=== PATIENT | male | born 1960 | race American Indian/Alaskan Native ===

== ENCOUNTER 2017-08-26 23:26 | Emergency (ER) | payer MEDICAID ==
--- NOTE | 2017-08-27 00:11 | EDM.PDOC ---
ED HPI GENERAL MEDICAL PROBLEM - General Chief Complaint: Respiratory Problem Stated Complaint: DIFFICULTY BREATHING [id number] Time Seen by Provider: 08/27/17 00:07 Source of Information: Reports: Patient History Limitations: Reports: No Limitations - History of Present Illness INITIAL COMMENTS - FREE TEXT/NARRATIVE: been having SOB past few days and has appt' with PMD next week but unable to wait till then. some chest discomfort and occasionally sharp. denies F/C - Related Data Allergies Allergy/AdvReac Type Severity Reaction Status Date / Time No Known Allergies Allergy Verified 08/26/17 23:37 Home Meds: Home Meds Albuterol Sulfate [Proair Respiclick] 2 puff INH Q6H PRN 08/14/16 [History] Carvedilol [Coreg] 12.5 mg PO BID 08/14/16 [History] Hydrocodone/Acetaminophen [Hydrocodon-Acetaminophen 5-325] 1 tab PO ASDIRECTED 08/14/16 [History] Furosemide [Lasix] 40 mg PO BID 08/31/16 [History] Lisinopril 5 mg PO DAILY 08/31/16 [History] Past Medical History - Past Health History Medical/Surgical History: Denies Medical/Surgical History Cardiovascular History: Reports: CAD, Cardiomyopathy, Hypertension, Pacemaker Respiratory History: Reports: SOB Other Respiratory History: pt unsure of respiratory history but has inhaler Musculoskeletal History: Reports: RA Other Musculoskeletal History: 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 - Past Surgical History Cardiovascular Surgical History: Reports: AICD Social & Family History - Family History Family Medical History: Noncontributory - Tobacco Use Smoking Status *Q: Never Smoker Years of Tobacco use: 40 Packs/Tins Daily: 1 Used Tobacco, but Quit: No Month Tobacco Last Used: dec Second Hand Smoke Exposure: No - Caffeine Use Caffeine Use: Reports: Coffee, Tea - Alcohol Use Days Per Week of Alcohol Use: 2 Number of Drinks Per Day: 12 Total Drinks Per Week: 24 - Recreational Drug Use Recreational Drug Use: No ED ROS GENERAL - Review of Systems Review Of Systems: ROS reveals no pertinent complaints other than HPI. ED EXAM, GENERAL - Physical Exam Exam: See Below Exam Limited By: No Limitations General Appearance: Alert, WD/WN, Mild Distress, Other (discomfort) Ears: Hearing Grossly Normal Throat/Mouth: Normal Voice, No Airway Compromise Head: Atraumatic Neck: Non-Tender, Full Range of Motion Respiratory/Chest: No Respiratory Distress, Rales, Rhonchi Cardiovascular: Regular Rate, Rhythm GI/Abdominal: Soft, Non-Tender Extremities: Pedal Edema, Other (2+) Neurological: Alert, Oriented, Normal Cognition, Normal Gait, No Motor/Sensory Deficits Psychiatric: Flat Affect Skin Exam: Warm, Dry, Normal Color Lymphatic: No Adenopathy Course - Vital Signs Last Recorded V/S: Last Vital Signs Temp 36.4 C 08/26/17 23:32 Pulse 94 08/27/17 01:17 Resp 20 08/27/17 01:17 BP 146/89 H 08/27/17 01:17 Pulse Ox 98 08/27/17 01:17 - Orders/Labs/Meds Orders: Active Orders 24 hr Category Date Time Status EKG 12 Lead [EKG Documentation Completion] [RC] STAT Care 08/27/17 01:08 Active CULTURE BLOOD [BC] Stat Lab 08/27/17 00:20 Received Sodium Chloride 0.9% [Normal Saline] 1,000 ml Med 08/27/17 00:15 Active IV ASDIRECTED Medication Orders Sodium Chloride (Normal Saline) 1,000 mls @ 75 mls/hr IV ASDIRECTED TAMMI Last Admin: 08/27/17 00:34 Dose: 75 mls/hr Labs: Laboratory Tests 08/27/17 08/27/17 08/27/17 Range/Units 00:20 00:20 00:20 WBC 6.7 (5.0-10.0) 10^3/uL RBC 3.43 L (4.6-6.2) 10^6/uL Hgb 9.6 L D (14.0-18.0) g/dL Hct 30.7 L (40.0-54.0) % MCV 89.5 D (80-100) fL MCH 28.0 (27.0-34.0) pg MCHC 31.3 L (33.0-35.0) g/dL Plt Count 356 (150-450) 10^3/uL Neut % (Auto) 62.6 (42.2-75.2) % Lymph % (Auto) 20.2 L (20.5-50.1) % [place] % (Auto) 6.8 (2-8) % Eos % (Auto) 9.9 H (1.0-3.0) % Baso % (Auto) 0.5 (0.0-1.0) % Sodium 142 (135-145) mmol/L Potassium 3.2 L (3.6-5.0) mmol/L Chloride 101 (101-111) mmol/L Carbon Dioxide 29.0 (21.0-31.0) mmol/L Anion Gap 15.2 BUN 22 H (7-18) mg/dL Creatinine 1.4 H (0.6-1.3) mg/dL Est Cr Clr Drug Dosing 54.96 mL/min Estimated GFR (MDRD) 52 BUN/Creatinine Ratio 15.71 Glucose 105 (74-105) mg/dL Lactic Acid 1.1 (0.5-2.2) mmol/L Calcium 7.6 L (8.4-10.2) mg/dl Total Bilirubin 0.5 (0.2-1.0) mg/dL AST 61 H (10-42) IU/L ALT 49 (10-60) IU/L Alkaline Phosphatase 59 (42-121) IU/L Troponin I 0.05 H* (0.00-0.02) ng/ml B-Natriuretic Peptide 424 H (0-100) pg/ml Total Protein 7.0 (6.7-8.2) g/dl Albumin 3.4 (3.2-5.5) g/dl Globulin 3.6 Albumin/Globulin Ratio 0.94 Meds: Medications Generic Name Dose Route Start Last Admin Trade Name Freq PRN Reason Stop Dose Admin Sodium Chloride 1,000 mls @ 75 mls/hr 08/27/17 00:15 08/27/17 00:34 Normal Saline IV 75 mls/hr ASDIRECTED TAMMI Administration Discontinued Medications Generic Name Dose Route Start Last Admin Trade Name Freq PRN Reason Stop Dose Admin Furosemide 40 mg 08/27/17 00:15 08/27/17 00:35 Lasix IVPUSH 08/27/17 00:16 40 mg NOW ONE Administration - Re-Assessments/Exams Free Text/Narrative Re-Assessment/Exam: 08/27/17 01:[address] Bolden @ who kindly accepted pt. Departure - Departure Time of Disposition: 01:27 Disposition: DC/Tfer to Acute Hospital 02 Condition: Fair Clinical Impression: Congenital heart disease in adult, Elevated troponin I level COPD (chronic obstructive pulmonary disease) Qualifiers: COPD type: chronic bronchitis Chronic bronchitis type: simple Qualified Code(s) : J41.0 - Simple chronic bronchitis Pulmonary edema Qualifiers: Chronicity: acute Qualified Code(s): J81.0 - Acute pulmonary edema - Discharge Information Forms: Interfacility Transfer EMTALA - My Orders Last 24 Hours: My Active Orders 08/27/17 00:15 Sodium Chloride 0.9% [Normal Saline] 1,000 ml IV ASDIRECTED 08/27/17 00:20 CULTURE BLOOD [BC] Stat 08/27/17 01:08 EKG 12 Lead [EKG Documentation Completion] [RC] STAT - Assessment/Plan Last 24 Hours: My Active Orders 08/27/17 00:15 Sodium Chloride 0.9% [Normal Saline] 1,000 ml IV ASDIRECTED 08/27/17 00:20 CULTURE BLOOD [BC] Stat 08/27/17 01:08 EKG 12 Lead [EKG Documentation Completion] [RC] STAT
[2017-08-27] MEDS ORDERED: Furosemide 40 MG/4 ML VIAL IVPUSH ONE (00:15)
[2017-08-27] MEDS ORDERED: Sodium Chloride 0.9% 1,000 ML IV SCH (00:15)
[2017-08-27 01:18] VITALS: BP 146/89
--- NOTE | 2017-09-28 14:13 | EKG ---
08/27/2017- [facility] - FINDINGS: EKG done on 57-year-old male, showing sinus rhythm, heart rate of 90 beats per minute. Normal axis. Left bundle branch block noted which is present on previous EKG. [facility] /[id number]
== END 2017-08-27 02:24 ==
LOC: DL.ED 23:26
DX: J81.0 Acute pulmonary edema (principal); J41.0 Simple chronic bronchitis; Q24.9 Congenital malformation of heart, unspecified; R79.89 Other specified abnormal findings of blood chemistry; I10 Essential (primary) hypertension; I25.10 Atherosclerotic heart disease of native coronary artery without angina pectoris; Z95.0 Presence of cardiac pacemaker; Z79.899 Other long term (current) drug therapy
CPT/HCPCS: 36415; 71020; 80053; 83605; 83880; 84484; 85025; 87040; 93005; 96361; 96374; 99285; J1940; J7030

== ENCOUNTER 2019-01-05 17:44 | Emergency (ER) | payer MEDICAID ==
[2019-01-05] MEDS ORDERED: Sodium Chloride 0.9% 10 ML Syringe FLUSH PRN (17:54)
[2019-01-05 18:43] LABS: ANION GAP 16.4; CHLORIDE,CL 106 mmol/L (101-111); SODIUM,NA 141 mmol/L (135-145)
[2019-01-05] MEDS ORDERED: MVI, Adult with Vitamin K 10 ML, Thiamine 100 MG, Folic Acid 1 MG in Lactated Ringers 1... IV ONE ×4 (19:03)
--- NOTE | 2019-01-05 19:10 | EDM.PDOC ---
Scribed by Cintia Truong 01/05/19 1910 for Curtis Fay MD ED HPI GENERAL MEDICAL PROBLEM - General Chief Complaint: Cardiovascular Problem Stated Complaint: ALBULNACE Time Seen by Provider: 01/05/19 17:45 Source of Information: Reports: Patient, EMS, EMS Notes Reviewed, RN, RN Notes Reviewed History Limitations: Reports: No Limitations - History of Present Illness INITIAL COMMENTS - FREE TEXT/NARRATIVE: Patient presents to ER by [facility] stating he has not felt well for the last few days. Today he developed rapid heart rate. He felt lightheaded and anxious. He became incontinent of stool. Denies abdominal pain, nausea or vomiting. He has no chest pain, chest palpitation or rapid rate. He has a pacemaker. He is uncertain of his medications and past medical history. Records indicate that he has history of CHF, NSTEMI, bronchitis, COPD, congenital heart disease, and pulmonary edema. Onset: Today Duration: Getting Worse Location: Reports: Chest Quality: Reports: Ache Severity: Severe - Related Data Allergies Allergy/AdvReac Type Severity Reaction Status Date / Time No Known Allergies Allergy Verified 08/26/17 23:37 Home Meds: Home Meds Albuterol Sulfate [Proair Respiclick] 2 puff INH Q6H PRN 08/14/16 [History] Carvedilol [Coreg] 12.5 mg PO BID 08/14/16 [History] Hydrocodone/Acetaminophen [Hydrocodon-Acetaminophen 5-325] 1 tab PO ASDIRECTED 08/14/16 [History] Furosemide [Lasix] 40 mg PO BID 08/31/16 [History] Lisinopril 5 mg PO DAILY 08/31/16 [History] Past Medical History - Past Health History Medical/Surgical History: Denies Medical/Surgical History Cardiovascular History: Reports: CAD, Cardiomyopathy, Hypertension, Pacemaker Respiratory History: Reports: SOB Other Respiratory History: pt unsure of respiratory history but has inhaler Musculoskeletal History: Reports: RA Other Musculoskeletal History: 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 ED EXAM, GENERAL - Physical Exam Exam: See Below Exam Limited By: Intoxication General Appearance: Alert, No Apparent Distress, Anxious, Obese Eye Exam: Bilateral Eye: Normal Inspection Ears: Normal External Exam, Hearing Grossly Normal Nose: Normal Inspection, Normal Mucosa, No Blood Throat/Mouth: Normal Lips, Normal Oropharynx, Normal Voice, No Airway Compromise , Other (Dry oral membranes) Head: Atraumatic, Normocephalic Neck: Normal Inspection, Supple, Non-Tender, Full Range of Motion Respiratory/Chest: No Respiratory Distress, Lungs Clear, Normal Breath Sounds, No Accessory Muscle Use, Chest Non-Tender Cardiovascular: Regular Rate, Rhythm, No Edema, Tachycardia GI/Abdominal: Normal Bowel Sounds, Soft, Non-Tender, No Distention. No: Guarding, Rigid, Rebound Back Exam: Normal Inspection Extremities: Normal Inspection Neurological: Alert, Oriented, CN II-XII Intact, Normal Cognition, No Motor/ Sensory Deficits Psychiatric: Anxious Skin Exam: Warm, Dry EKG INTERPRETATION EKG Date: 01/05/19 Time: 17:53 Rhythm: Other (sinus tachycardia) Rate (Beats/Min): 115 [place]: Normal P-Wave: Present QRS: LBBB (unchanged.) ST-T: Normal QT: Normal Comparison: No Change Course - Orders/Labs/Meds Orders: Active Orders 24 hr Category Date Time Status Blood Glucose Check, Bedside [RC] ONETIME Care 01/05/19 17:54 Active EKG 12 Lead [EKG Documentation Completion] [RC] STAT Care 01/05/19 17:52 Active Peripheral IV Care [RC] . DIRECTED Care 01/05/19 17:54 Active DRUG SCREEN URINE BIORAD [URCHEM] Stat Lab 01/05/19 18:58 Ordered TSH ULTRASENSITIVE [CHEM] Stat Lab 01/05/19 18:12 Received UA RFX GEORGI AND CULT IF INDIC [URIN] Stat Lab 01/05/19 18:58 Ordered MVI, Adult with Vitamin K [Infuvite Adult] 10 ml Med 01/05/19 19:03 Ordered Thiamine [Vitamin B-1] 100 mg Folic Acid 1 mg Lactated Ringers [Ringers, Lactated] 1,000 ml IV .BOLUS Sodium Chloride 0.9% [Saline Flush] Med 01/05/19 17:54 Active 10 ml FLUSH ASDIRECTED PRN Peripheral IV Insertion Adult [OM.PC] Stat Oth 01/05/19 17:52 Ordered Medication Orders Multivitamins/Minerals 10 ml/Thiamine HCl 100 mg/ Folic Acid 1 mg/ Lactated Ringer's 1,011.2 mls @ 999 mls/hr IV .BOLUS ONE Stop: 01/05/19 20:03 Sodium Chloride (Saline Flush) 10 ml FLUSH ASDIRECTED PRN PRN Reason: Keep Vein Open Last Admin: 01/05/19 17:58 Dose: 10 ml Labs: Laboratory Tests 01/05/19 01/05/19 01/05/19 Range/Units 18:00 18:12 18:12 WBC 8.9 (5.0-10.0) 10^3/uL RBC 5.14 (4.6-6.2) 10^6/uL Hgb 12.9 L D (14.0-18.0) g/dL Hct 40.5 (40.0-54.0) % MCV 78.8 L D (80-100) fL MCH 25.1 L (27.0-34.0) pg MCHC 31.9 L (33.0-35.0) g/dL Plt Count 301 (150-450) 10^3/uL Neut % (Auto) 64.6 (42.2-75.2) % Lymph % (Auto) 28.7 (20.5-50.1) % [place] % (Auto) 4.5 (2-8) % Eos % (Auto) 1.9 (1.0-3.0) % Baso % (Auto) 0.3 (0.0-1.0) % PT 10.1 (9.0-12.0) SEC INR 1.0 (0.9-1.2) APTT 26.6 (22.0-34.0) SEC Sodium (135-145) mmol/L Potassium (3.6-5.0) mmol/L Chloride (101-111) mmol/L Carbon Dioxide (21.0-31.0) mmol/L Anion Gap BUN (7-18) mg/dL Creatinine (0.6-1.3) mg/dL Est Cr Clr Drug Dosing mL/min Estimated GFR (MDRD) BUN/Creatinine Ratio Glucose (74-105) mg/dL POC Glucose 131 H (70-105) mg/dl Lactic Acid (0.5-2.2) mmol/L Calcium (8.4-10.2) mg/dl Magnesium (1.8-2.5) mg/dL Total Bilirubin (0.2-1.0) mg/dL AST (10-42) IU/L ALT (10-60) IU/L Alkaline Phosphatase (42-121) IU/L Troponin I (0.00-0.08) ng/mL B-Natriuretic Peptide (0-100) pg/ml Total Protein (6.7-8.2) g/dl Albumin (3.2-5.5) g/dl Globulin Albumin/Globulin Ratio Amylase (28-100) U/L Lipase (22-51) U/L Ethyl Alcohol mg/dL 01/05/19 01/05/19 Range/Units 18:12 18:12 WBC (5.0-10.0) 10^3/uL RBC (4.6-6.2) 10^6/uL Hgb (14.0-18.0) g/dL Hct (40.0-54.0) % MCV (80-100) fL MCH (27.0-34.0) pg MCHC (33.0-35.0) g/dL Plt Count (150-450) 10^3/uL Neut % (Auto) (42.2-75.2) % Lymph % (Auto) (20.5-50.1) % [place] % (Auto) (2-8) % Eos % (Auto) (1.0-3.0) % Baso % (Auto) (0.0-1.0) % PT (9.0-12.0) SEC INR (0.9-1.2) APTT (22.0-34.0) SEC Sodium 141 (135-145) mmol/L Potassium 3.4 L (3.6-5.0) mmol/L Chloride 106 (101-111) mmol/L Carbon Dioxide 22.0 (21.0-31.0) mmol/L Anion Gap 16.4 BUN 16 (7-18) mg/dL Creatinine 0.9 (0.6-1.3) mg/dL Est Cr Clr Drug Dosing 84.44 mL/min Estimated GFR (MDRD) > 60 BUN/Creatinine Ratio 17.77 Glucose 144 H (74-105) mg/dL POC Glucose (70-105) mg/dl Lactic Acid 5.0 H (0.5-2.2) mmol/L Calcium 7.8 L (8.4-10.2) mg/dl Magnesium 1.9 (1.8-2.5) mg/dL Total Bilirubin 0.5 (0.2-1.0) mg/dL AST 42 (10-42) IU/L ALT 31 (10-60) IU/L Alkaline Phosphatase 76 (42-121) IU/L Troponin I 0.01 (0.00-0.08) ng/mL B-Natriuretic Peptide 12 (0-100) pg/ml Total Protein 7.9 (6.7-8.2) g/dl Albumin 3.5 (3.2-5.5) g/dl Globulin 4.4 Albumin/Globulin Ratio 0.80 Amylase 32 (28-100) U/L Lipase 39 (22-51) U/L Ethyl Alcohol 287 mg/dL Meds: Medications Generic Name Dose Route Start Last Admin Trade Name Freq PRN Reason Stop Dose Admin Multivitamins/Minerals 10 ml/ 1,011.2 mls @ 999 mls/hr 01/05/19 19:03 Thiamine HCl 100 mg/ Folic IV 01/05/19 20:03 Acid 1 mg/ Lactated Ringer's .BOLUS ONE Sodium Chloride 10 ml 01/05/19 17:54 01/05/19 17:58 Saline Flush FLUSH 10 ml ASDIRECTED PRN Administration Keep Vein Open Departure - Departure Time of Disposition: 20:00 Disposition: Home, Self-Care 01 Condition: Fair Clinical Impression: Dehydration, Tachycardia Acute alcohol intoxication Qualifiers: Complication of substance-induced condition: with unspecified complication Qualified Code(s): F10.929 - Alcohol use, unspecified with intoxication, unspecified Instructions: Alcohol Use Disorder, Sinus Tachycardia, Dehydration, Adult, Easy -to-Read Forms: ED Department Discharge Additional Instructions: Abstain from alcohol consumption, drink water instead. Follow up in clinic if any further problems. - My Orders Last 24 Hours: My Active Orders 01/05/19 17:52 EKG 12 Lead [EKG Documentation Completion] [RC] STAT Peripheral IV Insertion Adult [OM.PC] Stat 01/05/19 17:54 Blood Glucose Check, Bedside [RC] ONETIME Peripheral IV Care [RC] . DIRECTED Sodium Chloride 0.9% [Saline Flush] 10 ml FLUSH ASDIRECTED PRN 01/05/19 18:12 TSH ULTRASENSITIVE [CHEM] Stat 01/05/19 18:58 DRUG SCREEN URINE BIORAD [URCHEM] Stat UA RFX GEORGI AND CULT IF INDIC [URIN] Stat 01/05/19 19:03 MVI, Adult with Vitamin K [Infuvite Adult] 10 ml Thiamine [Vitamin B-1] 100 mg Folic Acid 1 mg Lactated Ringers [Ringers, Lactated] 1,000 ml IV .BOLUS - Assessment/Plan Last 24 Hours: My Active Orders 01/05/19 17:52 EKG 12 Lead [EKG Documentation Completion] [RC] STAT Peripheral IV Insertion Adult [OM.PC] Stat 01/05/19 17:54 Blood Glucose Check, Bedside [RC] ONETIME Peripheral IV Care [RC] . DIRECTED Sodium Chloride 0.9% [Saline Flush] 10 ml FLUSH ASDIRECTED PRN 01/05/19 18:12 TSH ULTRASENSITIVE [CHEM] Stat 01/05/19 18:58 DRUG SCREEN URINE BIORAD [URCHEM] Stat UA RFX GEORGI AND CULT IF INDIC [URIN] Stat 01/05/19 19:03 MVI, Adult with Vitamin K [Infuvite Adult] 10 ml Thiamine [Vitamin B-1] 100 mg Folic Acid 1 mg Lactated Ringers [Ringers, Lactated] 1,000 ml IV .BOLUS I have read and agree with the documentation that has been completed regarding this visit. By signing this record, I attest that the documentation was completed in my physical presence and is an accurate record of the encounter.
== END 2019-01-05 20:58 | disposition home or self-care (01) ==
LOC: DL.ED 17:44
DX: R00.0 Tachycardia, unspecified (principal); F10.929 Alcohol use, unspecified with intoxication, unspecified; E86.0 Dehydration; I25.10 Atherosclerotic heart disease of native coronary artery without angina pectoris; I10 Essential (primary) hypertension; Z95.0 Presence of cardiac pacemaker; Z79.899 Other long term (current) drug therapy; Y90.8 Blood alcohol level of 240 mg/100 ml or more
CPT/HCPCS: 36415; 71045; 80053; 80305; 81001; 82150; 82272; 82962; 83605; 83690; 83735; 83880; 84443; 84484; 85025; 85610; 85730; 93005; 96365; 99285; G0480; J3411; J7120; J3490

== ENCOUNTER 2019-01-10 11:35 | Emergency (ER) | payer MEDICARE, MEDICAID ==
[2019-01-10 11:54] VITALS: BP 132/69
--- NOTE | 2019-01-10 12:11 | CR ---
Clinical history: 58-year-old male injured fall (3 days ago). Left lower extremity pain. Interpretation: AP/lateral views confirm comminuted distal diaphyseal fracture left tibia and spiral, nondisplaced, fracture proximal left fibula (anatomic alignment but there is impaction fragments distal tibia). No pathologic skeletal lesion. Chronic arthritic degenerative changes knee and ankle joint noted incidentally.
--- NOTE | 2019-01-10 12:16 | CR ---
Clinical history: 58-year-old male fractured tibia and fibula (3 days ago). Interpretation: 4 views left foot reveals soft tissue swelling and arteriovascular calcifications (diabetic?). No acute fracture or dislocation left foot. Osteopenia and arthritic degenerative changes (particularly severe involvement talocalcaneal joint, hindfoot). No foreign bodies. No sign of osteomyelitis. Heel spur at the insertion plantar aponeurosis base of the os calcis.
--- NOTE | 2019-01-10 12:45 | EDM.PDOC ---
ED HPI GENERAL MEDICAL PROBLEM - General Chief Complaint: Lower Extremity Injury/Pain Stated Complaint: LEG MAY BE BROKEN Time Seen by Provider: 01/10/19 12:00 Source of Information: Reports: Patient History Limitations: Reports: No Limitations - History of Present Illness INITIAL COMMENTS - FREE TEXT/NARRATIVE: This 58 yo male patient reports to the ED with left lower extremity pain due to a fall 3-4 days ago. The patient reports he has chronic left hip pain. The patient reports he tripped on Wednesday evening while getting ready for bed. The patient reports he has been experiencing increased pain since the time of the incident. Onset Date: 01/07/19 Duration: Constant Location: Reports: Lower Extremity, Left Quality: Reports: Ache, Sharp Severity: Moderate Improves with: Reports: Rest Worsens with: Reports: Movement Context: Reports: Trauma (ground level fall) Associated Symptoms: Reports: No Other Symptoms Left Leg Pain Score (Numeric/FACES): 8 - Related Data Allergies Allergy/AdvReac Type Severity Reaction Status Date / Time No Known Allergies Allergy Verified 01/10/19 12:16 Home Meds: Home Meds Albuterol Sulfate [Proair Respiclick] 2 puff INH Q6H PRN 08/14/16 [History] Carvedilol [Coreg] 12.5 mg PO BID 08/14/16 [History] Furosemide [Lasix] 40 mg PO BID 08/31/16 [History] Lisinopril 5 mg PO DAILY 08/31/16 [History] Past Medical History - Past Health History Medical/Surgical History: Denies Medical/Surgical History HEENT History: Reports: None Cardiovascular History: Reports: CAD, Cardiomyopathy, Hypertension, Pacemaker Respiratory History: Reports: SOB Other Respiratory History: pt unsure of respiratory history but has inhaler Gastrointestinal History: Reports: None Genitourinary History: Reports: None Musculoskeletal History: Reports: RA Other Musculoskeletal History: 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 Neurological History: Reports: None Psychiatric History: Reports: None Endocrine/Metabolic History: Reports: None Hematologic History: Reports: None Immunologic History: Reports: None Oncologic (Cancer) History: Reports: None Dermatologic History: Reports: None - Infectious Disease History Infectious Disease History: Reports: None - Past Surgical History Head Surgeries/Procedures: Reports: None Cardiovascular Surgical History: Reports: AICD Social & Family History - Family History Family Medical History: Noncontributory - Tobacco Use Smoking Status *Q: Never Smoker Second Hand Smoke Exposure: No - Caffeine Use Caffeine Use: Reports: Coffee, Tea - Alcohol Use Number of Drinks Per Day: 2 - Recreational Drug Use Recreational Drug Use: No - Living Situation & Occupation Living situation: Reports: with Family Occupation: Disabled Review of Systems - Review of Systems Review Of Systems: ROS reveals no pertinent complaints other than HPI. ED EXAM, GENERAL - Physical Exam Exam: See Below Exam Limited By: No Limitations General Appearance: Alert, WD/WN, Moderate Distress Eye Exam: Bilateral Eye: EOMI, Normal Inspection, PERRL Ears: Normal External Exam, Normal Canal, Hearing Grossly Normal, Normal TMs Nose: Normal Inspection, Normal Mucosa, No Blood Throat/Mouth: Normal Inspection, Normal Lips, Normal Teeth, Normal Gums, Normal Oropharynx, Normal Voice, No Airway Compromise Head: Atraumatic, Normocephalic Neck: Normal Inspection, Supple, Non-Tender, Full Range of Motion Respiratory/Chest: No Respiratory Distress, Lungs Clear, Normal Breath Sounds, No Accessory Muscle Use, Chest Non-Tender Cardiovascular: Normal Peripheral Pulses, Regular Rate, Rhythm, No Edema, No Gallop, No JVD, No Murmur, No Rub GI/Abdominal: Normal Bowel Sounds (Male) Exam: Deferred Rectal (Males) Exam: Deferred Back Exam: Normal Inspection, Full Range of Motion, NT Extremities: Leg Pain (left lower extremity pain, bruising and swelling due to fall (CMS intact)) Neurological: Alert, Oriented, CN II-XII Intact, Normal Cognition, Abnormal Gait (due to pain in the left foot) Psychiatric: Normal Affect, Normal Mood Skin Exam: Warm, Dry, Intact, Normal Color, No Rash Lymphatic: No Adenopathy ED TRAUMA EXTREMITY PROCEDURES - Splinting Left Lower Extremity Splint Site: Left lower extremity (Above knee to foot) Pre-Procedure NV Status: Normal Post-Procedure NV Status: Normal Splint Material: Fiberglass Splint Design: Stirrup, Other (Posterior) Applied & Form Fitted By: Provider, Nurse Provider Post-Splint Application NV Check: NV Status Normal, Good Position Complications: No Course - Vital Signs Last Recorded V/S: Last Vital Signs Temp 36.4 C 01/10/19 11:53 Pulse 83 01/10/19 11:53 Resp 16 01/10/19 11:53 BP 132/69 01/10/19 11:53 Pulse Ox 92 L 01/10/19 11:53 Departure - Departure Time of Disposition: 12:45 Disposition: DC/Tfer to Acute Hospital 02 Condition: Fair Clinical Impression: Fracture of left tibia and fibula Qualifiers: Encounter type: initial encounter Fracture type: closed Qualified Code(s): S82.202A - Unspecified fracture of shaft of left tibia, initial encounter for closed fracture; S82.402A - Unspecified fracture of shaft of left fibula, initial encounter for closed fracture - Discharge Information *PRESCRIPTION DRUG MONITORING PROGRAM REVIEWED*: Not Applicable *COPY OF PRESCRIPTION DRUG MONITORING REPORT IN PATIENT KYLIE: Not Applicable Forms: Interfacility Transfer EMTALA Care Plan Goals: Discussed the patient's history, examination and x-ray results with Dr. Galicia. Dr. Galicia advised to have the patient transported to the [facility] ED for further evaluation and management. Spoke with Dr. Hernandez relaying the patient information and Dr. Galicia's recommendations. Dr. Hernandez accepted the patient for continued evaluation and management. The patient will be transported by [facility].
== END 2019-01-10 13:15 ==
LOC: DL.ED 11:35
DX: S82.302A Unspecified fracture of lower end of left tibia, initial encounter for closed fracture (principal); S82.445A Nondisplaced spiral fracture of shaft of left fibula, initial encounter for closed fracture; I10 Essential (primary) hypertension; I25.10 Atherosclerotic heart disease of native coronary artery without angina pectoris; Z79.899 Other long term (current) drug therapy; W19.XXXA Unspecified fall, initial encounter
CPT/HCPCS: 29505; 73590-LT; 73630-LT; 99284-25

== ENCOUNTER 2019-01-16 10:55 | Inpatient (IN) | payer MEDICARE, MEDICAID ==
[2019-01-16] MEDS ORDERED: Morphine 2 MG/ML Syringe IVPUSH PRN (15:28)
[2019-01-16] MEDS ORDERED: Magnesium Hydroxide 400 MG/5 ML Susp 30 ML Cup PO PRN (15:28)
[2019-01-16] MEDS ORDERED: Ondansetron 4 MG Tab.DIS PO PRN (15:28)
[2019-01-16] MEDS ORDERED: Acetaminophen 325 MG Tab PO PRN (15:28)
[2019-01-16] MEDS ORDERED: Metolazone 2.5 MG Tab PO SCH (15:45)
--- NOTE | 2019-01-16 16:09 | HP ---
CHIEF COMPLAINT: Status post left tibial fracture repair requiring continued physical therapy and occupational therapy while in the Swing Bed. HISTORY OF PRESENTING ILLNESS: Mr. Constantino Chambers is a 58-year-old male with a medical history significant for hypertension, hyperlipidemia, chronic kidney disease, history of chronic congestive heart failure, systolic dysfunction with ejection fraction of less than 25% back in 2017, requiring AICD placed, history of chronic alcohol use and tobacco use, but quit drinking and smoking as per the patient, history of avascular necrosis of the left hip with underlying rheumatoid arthritis. Was admitted to [facility] on January 11, 2019; after he was noted to have left tibial-fibular fracture and underwent suprapatellar tibial nail fixation on January 11, 2019 and had an estimated blood loss of 50 mL during the surgical procedure. He was also noted to have a left forearm abscess at that time superficial. The patient was evaluated by ID services on the previous admission and cultures obtained from the abscess grew MSSA. He was treated initially with IV cefazolin and later changed to oral Keflex at the time of discharge. He is admitted to the Swing Bed at this time to continue with physical therapy and occupational therapy and to help with ambulation and daily activities of living. At this time, the patient complains of pain to the left lower extremity. He grades the pain as 6/10 in intensity, which gets aggravated on movement and ambulation, relieved partially with pain medication, feels like a tooth pain nonradiating in nature, not associated with any nausea or vomiting. Denies any chest pain. No shortness of breath. No abdominal pain. The patient denied any history of chest pains on exertion, but has mild dyspnea on exertion. No history of orthopnea or paroxysmal nocturnal dyspnea. The patient denied any history of hematemesis, hematochezia, or melenic stools. Normal bowel and bladder habits otherwise. REVIEW OF SYSTEMS: A complete review of system including skin, ear, nose, and throat, cardiovascular system, respiratory system, gastrointestinal system, genitourinary system, hematology, oncology, neurology, allergy, immunology, constitutional were all evaluated and were negative except for the above-said notes. PAST MEDICAL HISTORY: Significant for: 1. Hypertension. 2. Hyperlipidemia. 3. Cardiomyopathy with ejection fraction less than 25%, status post AICD placed. 4. Rheumatoid arthritis. 5. Chronic kidney disease, stage III. 6. Chronic history of alcohol use and tobacco use in the past. 7. Avascular necrosis of the left hip. 8. History of epidural abscess. 9. L2-L5 of the lumbar spine in the past. 10.Pleural effusion, in the past. PAST SURGICAL HISTORY: Significant for: 1. Knee arthroscopy. 2. Transesophageal echocardiogram. 3. Cardiac defibrillator placement. 4. Cardiac catheterization. 5. History of back surgeries. FAMILY HISTORY: Significant for hypertension, hyperlipidemia, and heart attack in his father, history of substance abuse in his father. History of heart attack in his brother. Rheumatoid arthritis in his paternal grandmother and diabetes in his maternal aunt and substance abuse in his paternal uncle. SOCIAL HISTORY: The patient had history of smoking tobacco in the past, but quit smoking in 2013. History of alcohol use in the past, but not currently. ALLERGIES: Allergic History: No known drug allergies. MEDICATIONS: Home medications include: 1. Potassium chloride 10 mEq 3 times a day. 2. Oxycodone 5 mg every 6 hours as needed for pain. 3. Metolazone 2.5 mg on Wednesday, Wednesdays, and Fridays. 4. Keflex of 500 mg 4 times a day. 5. Coreg 25 mg twice a day. 6. Lipitor 40 mg at bedtime. 7. Symbicort 1 puff inhalation twice daily. 8. Aspirin 325 mg daily. 9. Albuterol 2 puffs inhalation q.6 hours as needed. 10.Lasix 40 mg twice a day. 11.Tylenol 1000 mg q.8 hourly. PHYSICAL EXAMINATION: Vital Signs: Temperature of 97.8, pulse of 68, blood pressure of 127/76, respiratory rate of 20, saturating at 97% on room air. General Appearance: Patient is well oriented to time, place, and person. Follows commands spontaneously. Cardiovascular: S1 and S2 heard with normal intensity. No gallops. Respiratory: Clear to auscultation bilaterally. No wheeze. No crepitations. Abdomen: Soft. Bowel sounds positive. Nontender. No rigidity. Extremities: No edema of bilateral lower extremities. Mild edema noted on the left lower extremity and dressing changes noted on the left forearm. LABORATORY DATA: Labs as obtained from [facility]; sodium 138, potassium 3.6, chloride 106, bicarb 27.2, creatinine 1, BUN 17, glucose 114. WBC 6.6, hemoglobin 8.9, hematocrit 28.9, platelet count 225. ASSESSMENT: 1. Status post tibial fracture, requiring suprapatellar tibial nail fixation on 01/11/2019. 2. Left forearm abscess with MSSA, requiring oral Keflex. 3. Hypertension. 4. Hyperlipidemia. 5. Cardiomyopathy. 6. Chronic congestive heart failure systolic dysfunction with ejection fraction of 25%. 7. Status post AICD placed. 8. History of rheumatoid arthritis. PLAN: 1. Status post left tibial suprapatellar nail placement for left tibial- fibular fracture. The patient will need physical therapy and occupational therapy. We will continue with PT and OT while in the Swing Bed and will help with his daily activities of living and for strengthening. 2. Hypertension. The patient's blood pressure seems to be in acceptable range. Continue with current antihypertensive medication. 3. Chronic congestive heart failure. The patient has history of cardiomyopathy with ejection fraction less than 25%. Continue with diuretics. Continue with beta cailin. He is status post AICD placed. 4. Hyperlipidemia. Continue with statin. 5. Rheumatoid arthritis. Remains stable. The patient denies any ongoing arthritis. 6. DVT prophylaxis. We will have him on Lovenox for DVT prophylaxis. 7. Chronic congestive heart failure, remains stable. The patient is currently on Lasix 40 mg twice a day. Continue the same. Continue the metolazone on Wednesday, Wednesday, and Fridays. 8. Code status. The patient wants to be full code. 9. Reviewed the labs and medications. Reviewed the charts obtained from [facility]. [facility] /[id number]
[2019-01-16] MEDS: Potassium Chloride 10 MEQ Tab.ER PO SCH ×2 (16:50→22:07)
[2019-01-16] MEDS: Cephalexin 500 MG Cap PO SCH ×2 (16:51→22:07)
[2019-01-16] MEDS: Ibuprofen 600 MG Tab PO SCH (16:53)
[2019-01-16] MEDS ORDERED: Acetaminophen/oxyCODONE 325-5 MG Tab PO PRN (17:00)
[2019-01-16] MEDS: Acetaminophen 500 MG Tab PO SCH (22:05)
[2019-01-16] MEDS: Carvedilol 25 MG Tab PO SCH (22:07)
[2019-01-16] MEDS: atorvaSTATin 20 MG Tab PO SCH (22:07)
[2019-01-17] MEDS: BUDESONIDE INH SCH ×5 (00:29→22:25)
[2019-01-17] MEDS: FORMOTEROL INH SCH ×5 (00:29→22:25)
[2019-01-17] MEDS: Ibuprofen 600 MG Tab PO SCH ×3 (01:00→16:01)
[2019-01-17] MEDS: oxyCODONE 5 MG Tab PO PRN (02:12)
[2019-01-17] MEDS: Acetaminophen 500 MG Tab PO SCH ×3 (05:25→20:33)
[2019-01-17 06:48] LABS: ANION GAP 13.5; CHLORIDE,CL 100 mmol/L (101-111); SODIUM,NA 137 mmol/L (135-145)
[2019-01-17] MEDS: Furosemide 40 MG Tab PO SCH ×2 (07:41→12:27)
[2019-01-17] MEDS: Cephalexin 500 MG Cap PO SCH ×4 (08:47→20:34)
[2019-01-17] MEDS: Enoxaparin 40 MG/0.4 ML Syringe SUBCUT SCH (08:48)
[2019-01-17] MEDS: Potassium Chloride 10 MEQ Tab.ER PO SCH ×3 (08:48→17:13)
[2019-01-17] MEDS: Aspirin 325 MG Tab.EC PO SCH (08:49)
[2019-01-17] MEDS: Carvedilol 25 MG Tab PO SCH ×2 (08:49→20:34)
[2019-01-17] MEDS ORDERED: Polyethylene Glycol 3350 Powder 17 GM Packet PO PRN (09:00)
[2019-01-17] MEDS: atorvaSTATin 20 MG Tab PO SCH (20:34)
[2019-01-18] MEDS: Ibuprofen 600 MG Tab PO SCH ×5 (00:16→23:31)
[2019-01-18] MEDS: Acetaminophen 500 MG Tab PO SCH ×3 (03:58→21:02)
[2019-01-18 07:00] LABS: ANION GAP 12.9; CHLORIDE,CL 100 mmol/L (101-111); SODIUM,NA 137 mmol/L (135-145)
[2019-01-18] MEDS: Cephalexin 500 MG Cap PO SCH ×4 (08:57→21:03)
[2019-01-18] MEDS: Potassium Chloride 10 MEQ Tab.ER PO SCH ×3 (08:58→17:09)
[2019-01-18] MEDS: Aspirin 325 MG Tab.EC PO SCH (08:59)
[2019-01-18] MEDS: Carvedilol 25 MG Tab PO SCH ×2 (08:59→23:30)
[2019-01-18] MEDS: Enoxaparin 40 MG/0.4 ML Syringe SUBCUT SCH (09:00)
[2019-01-18] MEDS: Furosemide 40 MG Tab PO SCH ×2 (09:00→12:57)
[2019-01-18] MEDS: BUDESONIDE INH SCH (09:08)
[2019-01-18] MEDS: FORMOTEROL INH SCH (09:08)
[2019-01-18] MEDS: oxyCODONE 5 MG Tab PO PRN (19:19)
[2019-01-18] MEDS: atorvaSTATin 20 MG Tab PO SCH (21:02)
[2019-01-18] MEDS: Albuterol 6.7 GM Inhaler INH PRN (21:07)
[2019-01-19] MEDS: Acetaminophen 500 MG Tab PO SCH ×3 (03:46→21:20)
[2019-01-19] MEDS: Enoxaparin 40 MG/0.4 ML Syringe SUBCUT SCH (08:53)
[2019-01-19] MEDS: Furosemide 40 MG Tab PO SCH ×2 (08:53→12:19)
[2019-01-19] MEDS: Cephalexin 500 MG Cap PO SCH ×2 (08:54→12:18)
[2019-01-19] MEDS: Ibuprofen 600 MG Tab PO SCH ×2 (08:54→16:25)
[2019-01-19] MEDS: Potassium Chloride 10 MEQ Tab.ER PO SCH ×3 (08:54→17:45)
[2019-01-19] MEDS: Aspirin 325 MG Tab.EC PO SCH (08:56)
[2019-01-19] MEDS: Carvedilol 25 MG Tab PO SCH ×2 (08:56→21:20)
[2019-01-19] MEDS: BUDESONIDE INH SCH ×2 (08:58→22:01)
[2019-01-19] MEDS: FORMOTEROL INH SCH ×2 (08:58→22:01)
--- NOTE | 2019-01-19 13:05 | PCM.PN ---
- General Info Date of Service: 01/19/19 Subjective Update: Patient admitted with left tib/fib fracture status post surgery. Was placed on oral Keflex. Today patient is having more drainage. Extremities also more swollen. Appears a little moderate compared to how it looked at admission. - Review of Systems General: Reports: No Symptoms Pulmonary: Reports: No Symptoms Cardiovascular: Reports: No Symptoms Gastrointestinal: Reports: No Symptoms - Patient Data Vitals - Most Recent: Last Vital Signs Temp 36.4 C 01/19/19 07:32 Pulse 66 01/19/19 08:56 Resp 20 01/19/19 07:32 BP 117/54 L 01/19/19 08:56 Pulse Ox 100 01/19/19 07:32 Weight - Most Recent: 118.841 kg I&O - Last 24 Hours: Intake & Output 01/18/19 01/19/19 01/19/19 22:59 06:59 14:59 Intake Total 850 200 Output Total 150 Balance 850 50 Med Orders - Current: Current Medications Acetaminophen (Tylenol Extra Strength) 1,000 mg PO TID@0400,1200,2000 [facility] Last Admin: 01/19/19 12:18 Dose: 1,000 mg Albuterol (Proventil Hfa) 0 gm INH Q6HR PRN PRN Reason: Wheezing Last Admin: 01/18/19 21:07 Dose: 2 puff Amoxicillin/Clavulanate Potassium (Augmentin 875 Mg/125 Mg) 1 tab PO Q12HR [facility] Stop: 01/26/19 21:01 Aspirin (Ecotrin) 325 mg PO DAILY [facility] Last Admin: 01/19/19 08:56 Dose: 325 mg Atorvastatin Calcium (Lipitor) 40 mg PO BEDTIME [facility] Last Admin: 01/18/19 21:02 Dose: 40 mg Carvedilol (Coreg) 25 mg PO BID [facility] Last Admin: 01/19/19 08:56 Dose: 25 mg Enoxaparin Sodium (Lovenox) 40 mg SUBCUT DAILY [facility] Last Admin: 01/19/19 08:53 Dose: 40 mg Furosemide (Lasix) 40 mg PO BID@0800,1300 [facility] Last Admin: 01/19/19 12:19 Dose: 40 mg Ibuprofen (Motrin) 600 mg PO TID@0000,0800,1600 [facility] Last Admin: 01/19/19 08:54 Dose: 600 mg Magnesium Hydroxide (Milk Of Magnesia) 30 ml PO Q12HR PRN PRN Reason: Constipation Metolazone (Zaroxolyn) 5 mg PO DAILY [facility] Ondansetron HCl (Zofran Odt) 4 mg PO Q4HR PRN PRN Reason: nausea, able to take PO Oxycodone HCl (Oxycodone) 5 mg PO Q4H PRN PRN Reason: Pain Last Admin: 01/18/19 19:19 Dose: 5 mg Budesonide/Formoterol 160/4.5 Pt's Own Med 0 each INH BID [facility] Last Admin: 01/19/19 08:58 Dose: 2 each Polyethylene Glycol (Miralax) 17 gm PO DAILY PRN PRN Reason: Constipation Potassium Chloride (Klor-Con 10) 20 meq PO TIDMEALS [facility] Last Admin: 01/19/19 12:18 Dose: 20 meq Senna/Docusate Sodium (Senna Plus) 1 tab PO BEDTIME PRN PRN Reason: Constipation Discontinued Medications Cephalexin (Keflex) 500 mg PO QID [facility] Stop: 01/23/19 17:00 Last Admin: 01/19/19 12:18 Dose: 500 mg Metolazone (Zaroxolyn) 2.5 mg PO .MonWedFri@0900 [facility] Morphine Sulfate (Morphine) 2 mg IVPUSH Q2H PRN PRN Reason: Pain (severe 7-10) Oxycodone/Acetaminophen (Percocet 325-5 Mg) 1 tab PO Q4HR PRN PRN Reason: Pain, mild, moderate Potassium Chloride (Klor-Con 10) 10 meq PO TID [facility] Last Admin: 01/17/19 08:48 Dose: 10 meq - Exam General: Alert, Oriented, Cooperative Lungs: Clear to Auscultation, Normal Respiratory Effort Cardiovascular: Regular Rate, Regular Rhythm Extremities: Other (Surgical dressing above the knee noted to be soaked with secretion. Mild erythema.) - Problem List Review Problem List Initiated/Reviewed/Updated: Yes - My Orders Last 24 Hours: My Active Orders 01/19/19 13:00 B-TYPE NATRIURETIC PEPTIDE,BNP [CHEM] Routine 01/19/19 21:00 Amoxicillin/Clavulanate K [Augmentin 875 MG/125 MG] 1 tab PO Q12HR 01/20/19 09:00 metOLazone [Zaroxolyn] 5 mg PO DAILY - Assessment Assessment:: #. Status post repair of left tibia/fibular fracture Patient had surgery obtain [facility]. #. Hypertension #. Chronic kidney disease #. Chronic systolic congestive heart failure with ejection fraction of about 25% #. Rheumatoid arthritis #. History of alcohol use Plan: Discontinue Keflex Start patient on Augmentin 875 mg twice a day Change metolazone to 5 mg daily Continue Lasix 40 mg 2 times a day Obtain repeat basic metabolic panel obtain repeat brain natruretic peptide
[2019-01-19] MEDS: oxyCODONE 5 MG Tab PO PRN (19:47)
[2019-01-19] MEDS: atorvaSTATin 20 MG Tab PO SCH (21:19)
[2019-01-19] MEDS: Amoxicillin/Clavulanate K 875-125 MG Tab PO SCH (21:19)
[2019-01-20] MEDS: Ibuprofen 600 MG Tab PO SCH ×4 (00:25→23:58)
[2019-01-20] MEDS: oxyCODONE 5 MG Tab PO PRN ×2 (02:38→18:14)
[2019-01-20] MEDS: Acetaminophen 500 MG Tab PO SCH ×3 (04:19→21:12)
[2019-01-20] MEDS: Furosemide 40 MG Tab PO SCH ×2 (08:29→12:27)
[2019-01-20] MEDS: Amoxicillin/Clavulanate K 875-125 MG Tab PO SCH ×2 (08:30→21:15)
[2019-01-20] MEDS: Metolazone 2.5 MG Tab PO SCH (08:30)
[2019-01-20] MEDS: Enoxaparin 40 MG/0.4 ML Syringe SUBCUT SCH (08:32)
[2019-01-20] MEDS: Aspirin 325 MG Tab.EC PO SCH (08:32)
[2019-01-20] MEDS: Potassium Chloride 10 MEQ Tab.ER PO SCH ×3 (08:32→18:14)
[2019-01-20] MEDS: FORMOTEROL INH SCH ×2 (08:33→21:17)
[2019-01-20] MEDS: BUDESONIDE INH SCH ×2 (08:33→21:17)
[2019-01-20] MEDS: Carvedilol 25 MG Tab PO SCH ×2 (09:54→21:15)
[2019-01-20] MEDS: atorvaSTATin 20 MG Tab PO SCH (21:12)
[2019-01-21] MEDS: Acetaminophen 500 MG Tab PO SCH ×3 (03:46→21:00)
[2019-01-21] MEDS: Amoxicillin/Clavulanate K 875-125 MG Tab PO SCH ×2 (08:55→21:00)
[2019-01-21] MEDS: Potassium Chloride 10 MEQ Tab.ER PO SCH ×3 (08:55→18:14)
[2019-01-21] MEDS: Aspirin 325 MG Tab.EC PO SCH (08:55)
[2019-01-21] MEDS: Metolazone 2.5 MG Tab PO SCH (08:55)
[2019-01-21] MEDS: Ibuprofen 600 MG Tab PO SCH ×2 (08:56→16:05)
[2019-01-21] MEDS: Furosemide 40 MG Tab PO SCH ×2 (08:56→12:25)
[2019-01-21] MEDS: Enoxaparin 40 MG/0.4 ML Syringe SUBCUT SCH (08:57)
[2019-01-21] MEDS: Carvedilol 25 MG Tab PO SCH ×2 (08:57→20:59)
[2019-01-21] MEDS: FORMOTEROL INH SCH ×2 (08:58→21:05)
[2019-01-21] MEDS: BUDESONIDE INH SCH ×2 (08:58→21:05)
[2019-01-21] MEDS: oxyCODONE 5 MG Tab PO PRN (16:04)
[2019-01-21] MEDS: atorvaSTATin 20 MG Tab PO SCH (21:00)
[2019-01-22] MEDS: Ibuprofen 600 MG Tab PO SCH ×3 (00:02→17:35)
[2019-01-22] MEDS: Acetaminophen 500 MG Tab PO SCH ×3 (04:13→20:15)
[2019-01-22] MEDS: Furosemide 40 MG Tab PO SCH ×2 (09:01→13:31)
[2019-01-22] MEDS: Amoxicillin/Clavulanate K 875-125 MG Tab PO SCH ×2 (09:01→21:15)
[2019-01-22] MEDS: Potassium Chloride 10 MEQ Tab.ER PO SCH ×3 (09:01→17:35)
[2019-01-22] MEDS: Metolazone 2.5 MG Tab PO SCH (09:03)
[2019-01-22] MEDS: Albuterol 6.7 GM Inhaler INH PRN (09:04)
[2019-01-22] MEDS: BUDESONIDE INH SCH ×2 (09:04→21:17)
[2019-01-22] MEDS: FORMOTEROL INH SCH ×2 (09:04→21:17)
[2019-01-22] MEDS: Carvedilol 25 MG Tab PO SCH ×2 (09:05→21:15)
[2019-01-22] MEDS: Aspirin 325 MG Tab.EC PO SCH (09:05)
[2019-01-22] MEDS: Enoxaparin 40 MG/0.4 ML Syringe SUBCUT SCH (09:05)
[2019-01-22] MEDS: atorvaSTATin 20 MG Tab PO SCH (21:15)
[2019-01-23] MEDS: Ibuprofen 600 MG Tab PO SCH ×3 (00:31→16:31)
[2019-01-23] MEDS: Acetaminophen 500 MG Tab PO SCH ×3 (04:30→20:00)
[2019-01-23 07:22] LABS: ANION GAP 15.8
[2019-01-23] MEDS: Carvedilol 25 MG Tab PO SCH ×2 (08:24→20:47)
[2019-01-23] MEDS: Aspirin 325 MG Tab.EC PO SCH (08:24)
[2019-01-23] MEDS: Amoxicillin/Clavulanate K 875-125 MG Tab PO SCH ×2 (08:24→20:46)
[2019-01-23] MEDS: oxyCODONE 5 MG Tab PO PRN (08:25)
[2019-01-23] MEDS: Metolazone 2.5 MG Tab PO SCH (08:25)
[2019-01-23] MEDS: Potassium Chloride 10 MEQ Tab.ER PO SCH ×3 (08:25→17:11)
[2019-01-23] MEDS: Furosemide 40 MG Tab PO SCH ×2 (08:26→13:02)
[2019-01-23] MEDS: Enoxaparin 40 MG/0.4 ML Syringe SUBCUT SCH (08:30)
[2019-01-23] MEDS: FORMOTEROL INH SCH ×2 (08:30→20:43)
[2019-01-23] MEDS: BUDESONIDE INH SCH ×2 (08:30→20:43)
[2019-01-23] MEDS: atorvaSTATin 20 MG Tab PO SCH (20:46)
[2019-01-24] MEDS: Ibuprofen 600 MG Tab PO SCH ×3 (00:14→15:20)
[2019-01-24] MEDS: Acetaminophen 500 MG Tab PO SCH ×3 (04:05→19:49)
[2019-01-24] MEDS: Potassium Chloride 10 MEQ Tab.ER PO SCH ×3 (08:45→17:49)
[2019-01-24] MEDS: Furosemide 40 MG Tab PO SCH ×2 (08:46→12:52)
[2019-01-24] MEDS: Amoxicillin/Clavulanate K 875-125 MG Tab PO SCH ×2 (08:49→21:10)
[2019-01-24] MEDS: Carvedilol 25 MG Tab PO SCH ×2 (08:50→21:12)
[2019-01-24] MEDS: Aspirin 325 MG Tab.EC PO SCH (08:51)
[2019-01-24] MEDS: Metolazone 2.5 MG Tab PO SCH (08:52)
[2019-01-24] MEDS: Enoxaparin 40 MG/0.4 ML Syringe SUBCUT SCH (08:52)
[2019-01-24] MEDS: BUDESONIDE INH SCH ×2 (08:53→21:13)
[2019-01-24] MEDS: FORMOTEROL INH SCH ×2 (08:53→21:13)
[2019-01-24] MEDS: atorvaSTATin 20 MG Tab PO SCH (21:10)
[2019-01-25] MEDS: Ibuprofen 600 MG Tab PO SCH ×2 (00:15→09:44)
[2019-01-25] MEDS: oxyCODONE 5 MG Tab PO PRN (01:55)
[2019-01-25] MEDS: Acetaminophen 500 MG Tab PO SCH ×2 (06:40→11:32)
[2019-01-25] MEDS: Potassium Chloride 10 MEQ Tab.ER PO SCH ×2 (09:40→11:34)
[2019-01-25] MEDS: Carvedilol 25 MG Tab PO SCH (09:45)
[2019-01-25] MEDS: Furosemide 40 MG Tab PO SCH (09:46)
[2019-01-25] MEDS: Enoxaparin 40 MG/0.4 ML Syringe SUBCUT SCH (09:47)
[2019-01-25] MEDS: BUDESONIDE INH SCH (09:47)
[2019-01-25] MEDS: FORMOTEROL INH SCH (09:47)
[2019-01-25] MEDS: Aspirin 325 MG Tab.EC PO SCH (09:48)
[2019-01-25 09:57] VITALS: BP 130/65
[2019-01-25] MEDS: Metolazone 2.5 MG Tab PO SCH ×2 (09:58→10:37)
--- NOTE | 2019-01-25 10:38 | PCM.DCSUM1 ---
Discharge Summary - Hospital Course Free Text/Narrative:: Patient fell and sustained fracture of the left lower extremity. He underwent surgery at [facility]. Subsequently was transferred to [facility] for physical and occupational therapy. The surgical site appeared infected and patient was treated with antibiotics. Initially was admitted on Keflex. We had to change to Augmentin. He did develop lower extremity edema we'll give me increased dose of diuretics. Patient has been advised to cut back on fluid and salt intake. He will follow up with his primary care provider in one week and have basic metabolic panel. He is back on his normal doses of diuretics. #. Status post repair of left tibia/fibular fracture Patient had surgery . #. Hypertension #. Chronic kidney disease #. Chronic systolic congestive heart failure with ejection fraction of about 25% #. Rheumatoid arthritis #. History of alcohol use - Discharge Data Discharge Date: 01/25/19 Discharge Disposition: Home, Self-Care 01 Condition: Good - Patient Summary/Data Consults: Consultations 01/16/19 15:28 OT Evaluation and Treatment [CONS] Routine PT Evaluation and Treatment [CONS] Routine - Patient Instructions Activity: As Tolerated Other/Special Instructions: F/up with PMD in one week. BMP in one week - Discharge Plan Home Medications: Home Meds Furosemide [Lasix] 40 mg PO BID@0800,1300 08/31/16 [History] Acetaminophen 1,000 mg PO Q8H 01/16/19 [History] Albuterol [Ventolin HFA] 2 puff INH Q6H PRN 01/16/19 [History] Aspirin [Aspirin EC] 325 mg PO DAILY 01/16/19 [History] Budesonide/Formoterol [Symbicort 160-4.5 MCG] 1 puff INH BID 01/16/19 [History] Carvedilol [Coreg] 25 mg PO BID 01/16/19 [History] Ibuprofen 600 mg PO Q8H 01/16/19 [History] Potassium Chloride [Klor-Con 10] 10 meq PO TID 01/16/19 [History] atorvaSTATin [Lipitor] 40 mg PO BEDTIME 01/16/19 [History] metOLazone [Metolazone] 2.5 mg PO .MONWEDFRI 01/16/19 [History] oxyCODONE 5 mg PO Q6H PRN 05/20/19 [History] - Discharge Summary/Plan Comment DC Time >30 min.: No - Review of Systems General: Reports: No Symptoms Pulmonary: Reports: No Symptoms Cardiovascular: Reports: No Symptoms Gastrointestinal: Reports: No Symptoms Musculoskeletal: Reports: No Symptoms - Patient Data Vitals - Most Recent: Last Vital Signs Temp 36.6 C 01/24/19 19:17 Pulse 81 01/25/19 09:45 Resp 18 01/24/19 19:17 BP 130/65 01/25/19 09:45 Pulse Ox 97 01/24/19 19:17 Weight - Most Recent: 110.858 kg I&O - Last 24 hours: Intake & Output 01/24/19 01/25/19 01/25/19 22:59 06:59 14:59 Intake Total 220 275 Balance 220 275 Med Orders - Current: Current Medications Acetaminophen (Tylenol Extra Strength) 1,000 mg PO TID@0400,1200,2000 [facility] Last Admin: 01/25/19 06:40 Dose: Not Given Albuterol (Proventil Hfa) 0 gm INH Q6HR PRN PRN Reason: Wheezing Last Admin: 01/22/19 09:04 Dose: 2 puff Amoxicillin/Clavulanate Potassium (Augmentin 875 Mg/125 Mg) 1 tab PO Q12HR [facility] Stop: 01/26/19 21:01 Last Admin: 01/24/19 21:10 Dose: 1 tab Aspirin (Ecotrin) 325 mg PO DAILY [facility] Last Admin: 01/25/19 09:48 Dose: 325 mg Atorvastatin Calcium (Lipitor) 40 mg PO BEDTIME [facility] Last Admin: 01/24/19 21:10 Dose: 40 mg Carvedilol (Coreg) 25 mg PO BID [facility] Last Admin: 01/25/19 09:45 Dose: 25 mg Enoxaparin Sodium (Lovenox) 40 mg SUBCUT DAILY [facility] Last Admin: 01/25/19 09:47 Dose: 40 mg Furosemide (Lasix) 40 mg PO BID@0800,1300 [facility] Last Admin: 01/25/19 09:46 Dose: 40 mg Ibuprofen (Motrin) 600 mg PO TID@0000,0800,1600 [facility] Last Admin: 01/25/19 09:44 Dose: 600 mg Magnesium Hydroxide (Milk Of Magnesia) 30 ml PO Q12HR PRN PRN Reason: Constipation Metolazone (Zaroxolyn) 2.5 mg PO DAILY [facility] Ondansetron HCl (Zofran Odt) 4 mg PO Q4HR PRN PRN Reason: nausea, able to take PO Oxycodone HCl (Oxycodone) 5 mg PO Q4H PRN PRN Reason: Pain Last Admin: 01/25/19 01:55 Dose: 5 mg Budesonide/Formoterol 160/4.5 Pt's Own Med 0 each INH BID [facility] Last Admin: 01/25/19 09:47 Dose: 2 each Polyethylene Glycol (Miralax) 17 gm PO DAILY PRN PRN Reason: Constipation Potassium Chloride (Klor-Con 10) 20 meq PO TIDMEALS [facility] Last Admin: 01/25/19 09:40 Dose: 20 meq Senna/Docusate Sodium (Senna Plus) 1 tab PO BEDTIME PRN PRN Reason: Constipation Discontinued Medications Cephalexin (Keflex) 500 mg PO QID [facility] Stop: 01/23/19 17:00 Last Admin: 01/19/19 12:18 Dose: 500 mg Metolazone (Zaroxolyn) 2.5 mg PO .MonWedFri@0900 [facility] Metolazone (Zaroxolyn) 5 mg PO DAILY [facility] Last Admin: 01/24/19 08:52 Dose: 5 mg Morphine Sulfate (Morphine) 2 mg IVPUSH Q2H PRN PRN Reason: Pain (severe 7-10) Oxycodone/Acetaminophen (Percocet 325-5 Mg) 1 tab PO Q4HR PRN PRN Reason: Pain, mild, moderate Potassium Chloride (Klor-Con 10) 10 meq PO TID [facility] Last Admin: 01/17/19 08:48 Dose: 10 meq - Exam General: Reports: Alert, Oriented, Cooperative Neck: Reports: Supple Lungs: Reports: Clear to Auscultation, Normal Respiratory Effort Cardiovascular: Reports: Regular Rate, Regular Rhythm GI/Abdominal Exam: Normal Bowel Sounds, Soft, Non-Tender, No Organomegaly, No Distention, No Abnormal Bruit, No Mass, Pelvis Stable Extremities: Normal Range of Motion, Non-Tender, No Pedal Edema, Normal Capillary Refill, Other (Status post surgery left lower extremity. Dressings noted)
[2019-01-25] MEDS: Amoxicillin/Clavulanate K 875-125 MG Tab PO SCH (11:34)
[2019-01-26] MEDS ORDERED: Metolazone 2.5 MG Tab PO SCH (09:00)
== END 2019-01-25 12:20 | disposition home or self-care (01) | DRG 560 ==
LOC: EEVIPCON → DL.MS 14:37 → UNDOADMIN 14:37 → DL.MS 15:28
PROVIDERS: ADMIT Internal Medicine; ATTEND Hospitalist
DX: Z47.89 Encounter for other orthopedic aftercare (principal); E78.5 Hyperlipidemia, unspecified; I13.0 Hypertensive heart and chronic kidney disease with heart failure and stage 1 through stage 4 chronic kidney disease, or unspecified chronic kidney disease; M06.9 Rheumatoid arthritis, unspecified; I50.22 Chronic systolic (congestive) heart failure; I42.9 Cardiomyopathy, unspecified; N18.9 Chronic kidney disease, unspecified; S82.202D Unspecified fracture of shaft of left tibia, subsequent encounter for closed fracture with routine healing; Z79.82 Long term (current) use of aspirin; Z79.899 Other long term (current) drug therapy
CPT/HCPCS: 36415; 80048; 83880; 85027; 97110-GO; 97110-GP; 97116-GP; 97162-GP; 97165-GO; 97530-GO; A9270-GY; J1650

== ENCOUNTER 2019-08-15 09:15 | Inpatient (IN) | payer MEDICARE, MEDICAID ==
[2019-08-15] MEDS ORDERED: Magnesium Hydroxide 400 MG/5 ML Susp 30 ML Cup PO PRN (14:52)
[2019-08-15] MEDS ORDERED: Morphine 2 MG/ML Syringe IVPUSH PRN (14:52)
[2019-08-15] MEDS ORDERED: Acetaminophen 325 MG Tab PO PRN (14:52)
[2019-08-15] MEDS ORDERED: Docusate Sodium 100 MG Cap PO PRN (14:52)
[2019-08-15] MEDS ORDERED: Polyethylene Glycol 3350 Powder 17 GM Packet PO PRN (14:52)
[2019-08-15] MEDS ORDERED: Albuterol 6.7 GM Inhaler INH PRN (15:15)
--- NOTE | 2019-08-15 15:51 | HP ---
CHIEF COMPLAINT: Generalized weakness, needing physical therapy and occupational therapy while in the swing bed. HISTORY OF PRESENTING ILLNESS: Mr. Reyes Meeks is a 59-year-old male with a medical history significant for hypertension; hyperlipidemia; history of rheumatoid arthritis, not on any immunomodulating agents; chronic kidney disease, stage 3; osteomyelitis of the spine in the past; chronic congestive heart failure; chronic obstructive pulmonary disease; coronary artery disease; history of nonischemic cardiomyopathy, status post pacemaker placed and AICD placed; history of alcohol use and tobacco use in the past, but quit smoking at this time. Initially admitted to [facility] and got transferred to [facility] on 08/04 for evidence of right lower extremity cellulitis leading to severe sepsis and septic shock. The patient was requiring pressors while in the ICU. While at [facility], he also had a seizure-like episode, but no history of seizures in the past. He was started on Levaquin and vancomycin. Subsequently, the patient was evaluated by Infectious Disease team at [facility] and suggested for 10 more days of oral antibiotics with the levofloxacin and doxycycline. At this time, the patient complains of mild pain to the right lower extremity side. He grades the pain as 3 to 4 out of 10 in intensity, aggravated on ambulation, relieved with rest. Nonradiating type of pain, not associated with any nausea or vomiting. Denies any chest pains. No abdominal pain. No nausea. No vomiting. No diarrhea. The patient denied any history of chest pains on exertion. Has mild dyspnea on exertion. No history of orthopnea or paroxysmal nocturnal dyspnea. The patient denied any history of hematemesis, hematochezia, or melenic stools. Normal bowel and bladder habits otherwise. REVIEW OF SYSTEMS: A complete review of system including skin; ear, nose, and throat; cardiovascular system; respiratory system; gastrointestinal system; genitourinary system; hematology, oncology; neurology; allergy, immunology; constitutional were all evaluated and were negative except for the above-said notes. PAST MEDICAL HISTORY: Significant for hypertension; hyperlipidemia; chronic obstructive pulmonary disease; history of rheumatoid arthritis; history of septic arthritis in the past; stage 3 chronic kidney disease; history of tobacco use in the past; nonischemic cardiomyopathy, status post AICD and pacemaker placed; history of epidural abscess in the past; chronic congestive heart failure; history of deep venous thrombosis in the past; osteomyelitis of the spine. PAST SURGICAL HISTORY: Significant for tibial fracture intramedullary nail fixation, knee arthroscopy, upper endoscopy, cardiac defibrillator placement, and cardiac catheterization. FAMILY HISTORY: Significant for heart disease, hypertension, hyperlipidemia, cerebrovascular accident, substance abuse in his father, kidney disease in his sister, heart attack in his brother, and paternal grandmother having rheumatoid arthritis. SOCIAL HISTORY: The patient had history of smoking tobacco in the past, but quit smoking since 2013. Occasional alcohol use. ALLERGIES: No known drug allergies. CURRENT MEDICATIONS: Oxycodone 5 mg every 6 hours as needed for pain, levofloxacin 750 mg every 48 hours, doxycycline 100 mg q.12 hourly, prednisone 60 mg with breakfast, Protonix 40 mg daily, DuoNeb 3 times a day, Coreg 25 mg twice a day, Symbicort 2 puffs inhalation twice a day, Lipitor 40 mg at bedtime, aspirin 325 mg daily, albuterol 2 puffs inhalation every 6 hours as needed, Tylenol 1000 mg q.8 hourly. PHYSICAL EXAMINATION: General: The patient is alert and oriented to time, place, and person. Follows commands spontaneously. Cardiovascular System: S1, S2 heard with normal intensity. No gallops. Respiratory System: Clear to auscultation bilaterally. No wheeze. No crepitations. Abdomen: Soft. Bowel sounds positive. Nontender. No rigidity. Extremities: Lymphedema wraps to the right lower extremity and compression stocking to the left lower extremity. No edema to the left lower extremity. LABORATORY DATA: Labs as obtained from [facility]. Sodium 143, potassium 4, BUN 64, creatinine 2.3, glucose 133. ASSESSMENT: 1. Generalized debility, requiring physical therapy and occupational therapy. 2. Recent diagnosis of severe sepsis, septic shock; resolved. 3. Recent diagnosis of right lower extremity cellulitis, improved, currently on antibiotics. 4. Hypertension. 5. Hyperlipidemia. 6. Chronic kidney disease. 7. Chronic obstructive pulmonary airway disease. 8. Chronic congestive heart failure with nonischemic cardiomyopathy. 9. Status post automatic implantable cardioverter-defibrillator with pacemaker placed. PLAN: 1. Generalized debility. The patient will continue with physical therapy and occupational therapy while in the swing bed. 2. Recent severe sepsis with septic shock, which is resolved at this time. He is currently on antibiotic for right lower extremity cellulitis. He is noted to have lymphedema wraps to the right lower extremity. Continue the same. He will have wound cares while in the swing bed. 3. Hypertension. Blood pressure will be closely monitored. Continue with current antihypertensive medication. Try to avoid any hypotensive episodes. 4. DVT prophylaxis. We will have him on heparin for DVT prophylaxis. 5. Chronic kidney disease, remains stable. Try to avoid nephrotoxic agents. Had complications with acute on chronic renal failure while at [facility]. We will check a BMP in the a.m. Try to avoid any nonsteroidal anti-inflammatory agents. 6. Chronic obstructive pulmonary disease, remains stable. No wheeze noted on the lung exam. Continue with current inhalation treatments. 7. Code status. The patient wants to be full code. 8. I reviewed the labs and medications, reviewed the charts obtained from [facility]. [facility] /[id number]
[2019-08-15] MEDS: Formoterol/Mometasone 200-5 MCG 8.8 GM Inhaler IH SCH (17:34)
[2019-08-15] MEDS: Acetaminophen 500 MG Tab PO SCH ×2 (17:34→23:31)
[2019-08-15] MEDS: oxyCODONE 5 MG Tab PO SCH ×2 (17:34→23:30)
[2019-08-15] MEDS: Carvedilol 25 MG Tab PO SCH (17:35)
[2019-08-15] MEDS: Doxycycline 100 MG Cap PO SCH (21:00)
[2019-08-15] MEDS: atorvaSTATin 20 MG Tab PO SCH (21:01)
[2019-08-15] MEDS: Albuterol/Ipratropium 3.0-0.5 MG/3 ML Neb Soln NEB SCH (21:02)
[2019-08-15] MEDS: Heparin Sodium 5,000 Units/ML Vial SUBCUT SCH (21:02)
[2019-08-16] MEDS: oxyCODONE 5 MG Tab PO SCH ×3 (05:57→17:12)
[2019-08-16] MEDS: Pantoprazole 40 MG Tab.CR PO SCH (05:58)
[2019-08-16] MEDS: Heparin Sodium 5,000 Units/ML Vial SUBCUT SCH ×3 (05:59→21:18)
[2019-08-16 06:47] LABS: ANION GAP 14.2
[2019-08-16] MEDS: Albuterol/Ipratropium 3.0-0.5 MG/3 ML Neb Soln NEB SCH ×3 (07:14→21:17)
[2019-08-16] MEDS: predniSONE 20 MG Tab PO SCH (09:26)
[2019-08-16] MEDS: Carvedilol 25 MG Tab PO SCH ×2 (09:26→17:14)
[2019-08-16] MEDS: Doxycycline 100 MG Cap PO SCH ×2 (09:26→21:18)
[2019-08-16] MEDS: Acetaminophen 500 MG Tab PO SCH ×2 (09:29→17:13)
[2019-08-16] MEDS: Aspirin 325 MG Tab.EC PO SCH (09:30)
[2019-08-16] MEDS: Formoterol/Mometasone 200-5 MCG 8.8 GM Inhaler IH SCH (09:32)
[2019-08-16] MEDS: Ondansetron 4 MG Tab.DIS PO PRN (17:13)
[2019-08-16] MEDS: SYMBICORT INH SCH (21:18)
[2019-08-16] MEDS: atorvaSTATin 20 MG Tab PO SCH (21:18)
[2019-08-17] MEDS: Acetaminophen 500 MG Tab PO SCH ×3 (00:09→16:36)
[2019-08-17] MEDS: oxyCODONE 5 MG Tab PO SCH ×4 (00:10→17:44)
[2019-08-17] MEDS: Heparin Sodium 5,000 Units/ML Vial SUBCUT SCH ×3 (06:04→21:28)
[2019-08-17] MEDS: Pantoprazole 40 MG Tab.CR PO SCH (06:05)
[2019-08-17] MEDS: Albuterol/Ipratropium 3.0-0.5 MG/3 ML Neb Soln NEB SCH ×3 (07:30→21:28)
[2019-08-17] MEDS: predniSONE 20 MG Tab PO SCH (08:47)
[2019-08-17] MEDS: Carvedilol 25 MG Tab PO SCH ×2 (08:48→17:44)
[2019-08-17] MEDS: Aspirin 325 MG Tab.EC PO SCH (08:49)
[2019-08-17] MEDS: Doxycycline 100 MG Cap PO SCH ×2 (08:49→21:27)
[2019-08-17] MEDS: SYMBICORT INH SCH ×2 (08:50→21:29)
[2019-08-17] MEDS: Levofloxacin 500 MG Tab PO SCH (08:53)
[2019-08-17] MEDS: atorvaSTATin 20 MG Tab PO SCH (21:27)
[2019-08-18] MEDS: oxyCODONE 5 MG Tab PO SCH ×4 (00:08→17:39)
[2019-08-18] MEDS: Acetaminophen 500 MG Tab PO SCH ×3 (00:08→16:18)
[2019-08-18] MEDS: Pantoprazole 40 MG Tab.CR PO SCH (05:47)
[2019-08-18] MEDS: Heparin Sodium 5,000 Units/ML Vial SUBCUT SCH ×3 (05:48→22:24)
[2019-08-18] MEDS: Albuterol/Ipratropium 3.0-0.5 MG/3 ML Neb Soln NEB SCH ×3 (07:20→22:23)
[2019-08-18] MEDS: predniSONE 20 MG Tab PO SCH (08:40)
[2019-08-18] MEDS: Doxycycline 100 MG Cap PO SCH ×2 (08:41→22:23)
[2019-08-18] MEDS: Aspirin 325 MG Tab.EC PO SCH (08:41)
[2019-08-18] MEDS: Carvedilol 25 MG Tab PO SCH ×2 (08:41→17:41)
[2019-08-18] MEDS: SYMBICORT INH SCH ×2 (08:43→22:25)
[2019-08-18] MEDS: atorvaSTATin 20 MG Tab PO SCH (22:23)
[2019-08-19] MEDS: Acetaminophen 500 MG Tab PO SCH ×3 (00:14→16:33)
[2019-08-19] MEDS: oxyCODONE 5 MG Tab PO SCH ×4 (00:15→18:25)
[2019-08-19] MEDS: Heparin Sodium 5,000 Units/ML Vial SUBCUT SCH ×3 (05:56→21:28)
[2019-08-19] MEDS: Pantoprazole 40 MG Tab.CR PO SCH (05:56)
[2019-08-19] MEDS: Albuterol/Ipratropium 3.0-0.5 MG/3 ML Neb Soln NEB SCH ×3 (07:18→21:30)
[2019-08-19] MEDS: predniSONE 20 MG Tab PO SCH (07:55)
[2019-08-19] MEDS: Carvedilol 25 MG Tab PO SCH ×2 (07:55→18:25)
[2019-08-19] MEDS: Levofloxacin 500 MG Tab PO SCH (08:45)
[2019-08-19] MEDS: Doxycycline 100 MG Cap PO SCH ×2 (08:46→21:29)
[2019-08-19] MEDS: Aspirin 325 MG Tab.EC PO SCH (08:46)
[2019-08-19] MEDS: SYMBICORT INH SCH ×2 (08:47→21:29)
--- NOTE | 2019-08-19 09:49 | PN ---
DATE: 08/19/2019 SUBJECTIVE: The patient is doing fairly well. He is requesting for a therapeutic leave today too with his family. He still has the cellulitis of the right lower extremity, and currently on doxycycline and levofloxacin. He has also followup appointment with the [facility] this coming Wednesday. The patient denies any chest pain, shortness of breath, fever or chills, nor any other complaints. OBJECTIVE: Vital Signs: Blood pressure is 154/79, pulse of 81, respirations 20, temperature of 97.2. Heart: Regular rate and rhythm. Normal S1 and S2. No gallops. No rubs. LUNGS: Equal bilaterally. No crackles. No wheezing. ABDOMEN: Protuberant, soft, nontender. EXTREMITIES: Remarkable for the dressing on the right lower extremity. PLAN: We will continue with his present management. We will continue with PT and OT, and to keep his appointment with the wound clinic this Wednesday. [facility] /[id number]
[2019-08-19] MEDS: atorvaSTATin 20 MG Tab PO SCH (21:29)
[2019-08-20] MEDS: Acetaminophen 500 MG Tab PO SCH ×4 (00:25→23:57)
[2019-08-20] MEDS: oxyCODONE 5 MG Tab PO SCH ×5 (00:26→23:58)
[2019-08-20] MEDS: Heparin Sodium 5,000 Units/ML Vial SUBCUT SCH ×3 (06:56→21:49)
[2019-08-20] MEDS: Pantoprazole 40 MG Tab.CR PO SCH (06:57)
[2019-08-20] MEDS: Albuterol/Ipratropium 3.0-0.5 MG/3 ML Neb Soln NEB SCH ×3 (07:17→21:13)
[2019-08-20] MEDS: Aspirin 325 MG Tab.EC PO SCH (09:05)
[2019-08-20] MEDS: Doxycycline 100 MG Cap PO SCH ×2 (09:06→21:13)
[2019-08-20] MEDS: predniSONE 20 MG Tab PO SCH (09:06)
[2019-08-20] MEDS: Carvedilol 25 MG Tab PO SCH ×2 (09:06→17:51)
[2019-08-20] MEDS: SYMBICORT INH SCH ×2 (09:09→21:13)
[2019-08-20] MEDS: atorvaSTATin 20 MG Tab PO SCH (21:13)
[2019-08-21] MEDS: Pantoprazole 40 MG Tab.CR PO SCH (06:06)
[2019-08-21] MEDS: oxyCODONE 5 MG Tab PO SCH ×3 (06:06→17:32)
[2019-08-21] MEDS: Heparin Sodium 5,000 Units/ML Vial SUBCUT SCH (06:08)
[2019-08-21] MEDS: Albuterol/Ipratropium 3.0-0.5 MG/3 ML Neb Soln NEB SCH ×3 (06:12→20:56)
[2019-08-21] MEDS: SYMBICORT INH SCH ×3 (06:18→20:57)
[2019-08-21] MEDS: Carvedilol 25 MG Tab PO SCH ×3 (06:30→17:32)
[2019-08-21] MEDS: Aspirin 325 MG Tab.EC PO SCH ×2 (06:31→08:12)
[2019-08-21] MEDS: Doxycycline 100 MG Cap PO SCH ×3 (06:31→20:56)
[2019-08-21] MEDS: predniSONE 20 MG Tab PO SCH ×2 (06:31→07:15)
[2019-08-21] MEDS: Acetaminophen 500 MG Tab PO SCH ×3 (06:32→17:32)
[2019-08-21] MEDS: Levofloxacin 500 MG Tab PO SCH ×2 (06:33→08:12)
[2019-08-21] MEDS: atorvaSTATin 20 MG Tab PO SCH (20:56)
[2019-08-22] MEDS: Acetaminophen 500 MG Tab PO SCH ×3 (00:15→15:49)
[2019-08-22] MEDS: oxyCODONE 5 MG Tab PO SCH ×4 (00:15→19:58)
[2019-08-22] MEDS: Pantoprazole 40 MG Tab.CR PO SCH (05:52)
[2019-08-22] MEDS: Albuterol/Ipratropium 3.0-0.5 MG/3 ML Neb Soln NEB SCH ×3 (07:10→21:01)
[2019-08-22] MEDS: Carvedilol 25 MG Tab PO SCH ×2 (09:16→19:57)
[2019-08-22] MEDS: Aspirin 325 MG Tab.EC PO SCH (09:16)
[2019-08-22] MEDS: Doxycycline 100 MG Cap PO SCH ×2 (09:17→21:01)
[2019-08-22] MEDS: predniSONE 20 MG Tab PO SCH (09:17)
[2019-08-22] MEDS: Enoxaparin 30 MG/0.3 ML Syringe SUBCUT SCH (09:19)
[2019-08-22] MEDS: SYMBICORT INH SCH ×2 (09:19→21:01)
[2019-08-22] MEDS: atorvaSTATin 20 MG Tab PO SCH (21:01)
[2019-08-23] MEDS: oxyCODONE 5 MG Tab PO SCH ×5 (00:29→19:51)
[2019-08-23] MEDS: Acetaminophen 500 MG Tab PO SCH ×3 (00:29→17:04)
[2019-08-23] MEDS: Pantoprazole 40 MG Tab.CR PO SCH (06:09)
[2019-08-23] MEDS: Carvedilol 25 MG Tab PO SCH ×3 (09:19→19:52)
[2019-08-23] MEDS: Aspirin 325 MG Tab.EC PO SCH (09:19)
[2019-08-23] MEDS: Doxycycline 100 MG Cap PO SCH ×2 (09:19→20:56)
[2019-08-23] MEDS: Enoxaparin 30 MG/0.3 ML Syringe SUBCUT SCH (09:19)
[2019-08-23] MEDS: predniSONE 20 MG Tab PO SCH (09:19)
[2019-08-23] MEDS: Albuterol/Ipratropium 3.0-0.5 MG/3 ML Neb Soln NEB SCH ×3 (09:20→20:57)
[2019-08-23] MEDS: SYMBICORT INH SCH ×2 (09:21→20:57)
[2019-08-23] MEDS: Levofloxacin 500 MG Tab PO SCH (09:23)
[2019-08-23] MEDS: atorvaSTATin 20 MG Tab PO SCH (20:56)
[2019-08-24] MEDS: oxyCODONE 5 MG Tab PO SCH ×5 (00:21→23:58)
[2019-08-24] MEDS: Acetaminophen 500 MG Tab PO SCH ×4 (00:21→23:59)
[2019-08-24] MEDS: Pantoprazole 40 MG Tab.CR PO SCH (05:28)
[2019-08-24] MEDS: Albuterol/Ipratropium 3.0-0.5 MG/3 ML Neb Soln NEB SCH ×3 (07:31→21:26)
[2019-08-24] MEDS: Aspirin 325 MG Tab.EC PO SCH (08:10)
[2019-08-24] MEDS: predniSONE 20 MG Tab PO SCH (08:10)
[2019-08-24] MEDS: Doxycycline 100 MG Cap PO SCH ×2 (08:10→21:25)
[2019-08-24] MEDS: Carvedilol 25 MG Tab PO SCH ×2 (08:11→17:15)
[2019-08-24] MEDS: SYMBICORT INH SCH ×2 (08:12→21:26)
[2019-08-24] MEDS: Enoxaparin 30 MG/0.3 ML Syringe SUBCUT SCH (08:12)
[2019-08-24] MEDS: atorvaSTATin 20 MG Tab PO SCH (21:25)
[2019-08-25] MEDS: Pantoprazole 40 MG Tab.CR PO SCH (05:45)
[2019-08-25] MEDS: oxyCODONE 5 MG Tab PO SCH ×4 (05:45→23:59)
[2019-08-25] MEDS: Albuterol/Ipratropium 3.0-0.5 MG/3 ML Neb Soln NEB SCH ×3 (07:14→20:46)
[2019-08-25] MEDS: Levofloxacin 500 MG Tab PO SCH (08:35)
[2019-08-25] MEDS: predniSONE 20 MG Tab PO SCH (08:35)
[2019-08-25] MEDS: Enoxaparin 30 MG/0.3 ML Syringe SUBCUT SCH (08:36)
[2019-08-25] MEDS: Carvedilol 25 MG Tab PO SCH ×2 (08:36→17:44)
[2019-08-25] MEDS: Aspirin 325 MG Tab.EC PO SCH (08:37)
[2019-08-25] MEDS: Acetaminophen 500 MG Tab PO SCH ×3 (08:37→23:58)
[2019-08-25] MEDS: Doxycycline 100 MG Cap PO SCH ×2 (08:37→20:46)
[2019-08-25] MEDS: SYMBICORT INH SCH ×2 (08:39→20:50)
[2019-08-25] MEDS: Ondansetron 4 MG Tab.DIS PO PRN (19:44)
[2019-08-25] MEDS: atorvaSTATin 20 MG Tab PO SCH (20:46)
[2019-08-26] MEDS: Pantoprazole 40 MG Tab.CR PO SCH (06:13)
[2019-08-26] MEDS: oxyCODONE 5 MG Tab PO SCH ×3 (06:13→17:12)
[2019-08-26] MEDS: Ondansetron 4 MG Tab.DIS PO PRN ×3 (06:14→11:01)
[2019-08-26] MEDS: Albuterol/Ipratropium 3.0-0.5 MG/3 ML Neb Soln NEB SCH ×3 (07:21→20:09)
[2019-08-26] MEDS: Acetaminophen 500 MG Tab PO SCH ×2 (08:23→16:30)
[2019-08-26] MEDS: Carvedilol 25 MG Tab PO SCH ×2 (08:23→17:12)
[2019-08-26] MEDS: Doxycycline 100 MG Cap PO SCH ×2 (08:24→20:10)
[2019-08-26] MEDS: predniSONE 20 MG Tab PO SCH (08:24)
[2019-08-26] MEDS: Aspirin 325 MG Tab.EC PO SCH (08:24)
[2019-08-26] MEDS: Enoxaparin 30 MG/0.3 ML Syringe SUBCUT SCH (08:25)
[2019-08-26] MEDS: SYMBICORT INH SCH ×2 (08:25→20:10)
[2019-08-26] MEDS: atorvaSTATin 20 MG Tab PO SCH (20:10)
[2019-08-27] MEDS: oxyCODONE 5 MG Tab PO SCH ×4 (00:07→17:17)
[2019-08-27] MEDS: Acetaminophen 500 MG Tab PO SCH ×3 (00:08→16:34)
[2019-08-27] MEDS: Pantoprazole 40 MG Tab.CR PO SCH (05:53)
[2019-08-27] MEDS: Albuterol/Ipratropium 3.0-0.5 MG/3 ML Neb Soln NEB SCH ×3 (07:33→21:53)
[2019-08-27] MEDS: Doxycycline 100 MG Cap PO SCH ×2 (09:13→21:53)
[2019-08-27] MEDS: predniSONE 20 MG Tab PO SCH (09:13)
[2019-08-27] MEDS: Carvedilol 25 MG Tab PO SCH ×2 (09:13→17:17)
[2019-08-27] MEDS: Aspirin 325 MG Tab.EC PO SCH (09:13)
[2019-08-27] MEDS: Enoxaparin 30 MG/0.3 ML Syringe SUBCUT SCH (09:14)
[2019-08-27] MEDS: SYMBICORT INH SCH ×2 (09:16→21:54)
[2019-08-27] MEDS: Levofloxacin 500 MG Tab PO SCH (09:18)
[2019-08-27] MEDS: atorvaSTATin 20 MG Tab PO SCH (21:53)
[2019-08-28] MEDS: oxyCODONE 5 MG Tab PO SCH ×5 (00:22→23:24)
[2019-08-28] MEDS: Acetaminophen 500 MG Tab PO SCH ×4 (00:24→23:23)
[2019-08-28] MEDS: Pantoprazole 40 MG Tab.CR PO SCH (05:53)
[2019-08-28] MEDS: Albuterol/Ipratropium 3.0-0.5 MG/3 ML Neb Soln NEB SCH ×3 (07:10→23:23)
[2019-08-28] MEDS: predniSONE 20 MG Tab PO SCH (09:35)
[2019-08-28] MEDS: Doxycycline 100 MG Cap PO SCH (09:36)
[2019-08-28] MEDS: Aspirin 325 MG Tab.EC PO SCH (09:36)
[2019-08-28] MEDS: Carvedilol 25 MG Tab PO SCH ×2 (09:36→18:20)
[2019-08-28] MEDS: SYMBICORT INH SCH ×2 (09:37→23:23)
[2019-08-28] MEDS: Enoxaparin 30 MG/0.3 ML Syringe SUBCUT SCH (09:37)
--- NOTE | 2019-08-28 12:06 | PCM.PN ---
- General Info Date of Service: 08/28/19 Admission Dx/Problem (Free Text): Admitted for: Generalized weakness, needing to continue PT/OT Subjective Update: Pt was seen in room today, he is doing well, feels stronger, appetite is good, No nausea or Vomiting, No fever or chill Functional Status: Reports: Pain Controlled, Tolerating Diet, Ambulating, Urinating - Review of Systems General: Reports: Weakness, Malaise, Appetite (Good). Denies: Fever, Chills HEENT: Denies: Dysphasia, Sinus Congestion, Sore Throat, Visual Changes Pulmonary: Denies: Shortness of Breath, Cough, Sputum, Wheezing Cardiovascular: Denies: Chest Pain, Dyspnea on Exertion, Lightheadedness Gastrointestinal: Denies: Abdominal Pain, Diarrhea, Difficulty Swallowing, Nausea, Vomiting Genitourinary: Denies: Dysuria, Frequency, Burning, Urgency, Flank Pain Musculoskeletal: Denies: Neck Pain, Leg Pain, Joint Pain, Joint Swelling Skin: Denies: Cyanosis, Jaundice, Diaphoresis Neurological: Denies: Confusion, Numbness, Tingling, Tremors Psychiatric: Reports: No Symptoms - Patient Data Vitals - Most Recent: Last Vital Signs Temp 36.7 C 08/28/19 07:53 Pulse 61 08/28/19 09:36 Resp 18 08/28/19 07:53 BP 178/81 H 08/28/19 09:36 Pulse Ox 99 08/28/19 07:53 Weight - Most Recent: 117.14 kg I&O - Last 24 Hours: Intake & Output 08/27/19 08/28/19 08/28/19 22:59 06:59 14:59 Intake Total 240 Balance 240 Lab Results Last 24 Hours: Laboratory Results - last 24 hr 08/28/19 08/28/19 08/28/19 Range/Units 05:55 05:55 05:55 WBC 15.3 H (5.0-10.0) 10^3/uL RBC 3.97 L (4.6-6.2) 10^6/uL Hgb 10.2 L (14.0-18.0) g/dL Hct 33.0 L (40.0-54.0) % MCV 83.1 D (80-100) fL MCH 25.7 L (27.0-34.0) pg MCHC 30.9 L (33.0-35.0) g/dL Plt Count 238 (150-450) 10^3/uL Neut % (Auto) 88.2 H (42.2-75.2) % Lymph % (Auto) 5.2 L (20.5-50.1) % [place] % (Auto) 6.5 (2-8) % Eos % (Auto) 0.0 L (1.0-3.0) % Baso % (Auto) 0.1 (0.0-1.0) % ESR 7 (0-15) mm/hr Creatinine 2.0 H (0.6-1.3) mg/dL Est Cr Clr Drug Dosing 37.53 mL/min Estimated GFR (MDRD) 34 ALT 14 (10-60) IU/L C-Reactive Protein < 0.5 (0.0-1.3) mg/dL Med Orders - Current: Current Medications Acetaminophen (Tylenol) 650 mg PO Q4H PRN PRN Reason: Pain (Mild 1-3)/fever Acetaminophen (Tylenol Extra Strength) 1,000 mg PO Q8H [facility] Last Admin: 08/28/19 09:36 Dose: 1,000 mg Albuterol (Proventil Hfa) 0 gm INH Q6H PRN PRN Reason: Wheezing Albuterol/Ipratropium (Duoneb 3.0-0.5 Mg/3 Ml) 3 ml NEB TIDRT [facility] Last Admin: 08/28/19 07:10 Dose: 3 ml Aspirin (Ecotrin) 325 mg PO DAILY [facility] Last Admin: 08/28/19 09:36 Dose: 325 mg Atorvastatin Calcium (Lipitor) 40 mg PO BEDTIME [facility] Last Admin: 08/27/19 21:53 Dose: 40 mg Carvedilol (Coreg) 25 mg PO BIDMEALS [facility] Last Admin: 08/28/19 09:36 Dose: 25 mg Docusate Sodium (Colace) 100 mg PO BID PRN PRN Reason: Constipation, use first Last Admin: 08/27/19 13:05 Dose: 100 mg Doxycycline Hyclate (Vibramycin) 100 mg PO Q12HR [facility] Last Admin: 08/28/19 09:36 Dose: 100 mg Enoxaparin Sodium (Lovenox) 30 mg SUBCUT DAILY [facility] Last Admin: 12/30/19 09:37 Dose: 30 mg Levofloxacin (Levaquin) 750 mg PO Q48H [facility] Last Admin: 08/27/19 09:18 Dose: 750 mg Magnesium Hydroxide (Milk Of Magnesia) 30 ml PO Q12H PRN PRN Reason: Constipation, use 3rd Morphine Sulfate (Morphine) 2 mg IVPUSH Q2H PRN PRN Reason: Pain (severe 7-10) Ondansetron HCl (Zofran Odt) 4 mg PO Q4H PRN PRN Reason: nausea, able to take PO Last Admin: 08/26/19 11:01 Dose: 4 mg Oxycodone HCl (Oxycodone) 5 mg PO Q6HR [facility] Last Admin: 08/28/19 05:53 Dose: 5 mg Pantoprazole Sodium (Protonix) 40 mg PO ACBREAKFAST [facility] Last Admin: 08/28/19 05:53 Dose: 40 mg Symbicort 160/4.5 Inhaler- Pt's Own Med 0 each INH BID [facility] Last Admin: 08/28/19 09:37 Dose: 1 each Polyethylene Glycol (Miralax) 17 gm PO DAILY PRN PRN Reason: Constipation, use 2nd Prednisone (Prednisone) 60 mg PO WITHBREAKFAST [facility] Last Admin: 08/28/19 09:35 Dose: 60 mg Discontinued Medications Heparin Sodium (Porcine) (Heparin Sodium) 5,000 units SUBCUT Q8HR [facility] Last Admin: 08/21/19 06:08 Dose: 5,000 units Influenza Virus Vaccine (Afluria Quad 2019-20 (3yr Up)) 60 mcg IM .ONCE ONE Stop: 08/16/19 09:01 Mometasone Furoate/Formoterol Fumar (Dulera 200-5 Mcg) 2 puff IH BIDRT [facility] Last Admin: 08/16/19 09:32 Dose: 2 puff - Exam Quality Assessment: DVT Prophylaxis. No: Supplemental Oxygen, Central Line/PICC , Urine Catheter General: Alert, Oriented, Cooperative, No Acute Distress HEENT: Pupils Equal, EOMI, Mucous Membr. Moist/[place] Neck: No JVD, No Thyromegaly Lungs: Clear to Auscultation, Normal Respiratory Effort. No: Crackles, Wheezing Cardiovascular: Regular Rate, Regular Rhythm, No Murmurs GI/Abdominal Exam: Normal Bowel Sounds, Non-Tender, No Organomegaly, No Distention. No: Rigid, Rebound, Tender (Male) Exam: Deferred Back Exam: Normal Inspection, Full Range of Motion Extremities: Normal Inspection, Pedal Edema Skin: Warm, Dry, Intact Neurological: No New Focal Deficit Psy/Mental Status: Alert, Normal Affect, Normal Mood Sepsis Event Note - Evaluation Sepsis Screening Result: No Definite Risk - Focused Exam Vital Signs: Vital Signs Temp Pulse Pulse Resp BP BP Pulse Ox 08/28/19 09:36 61 178/81 H 08/28/19 07:53 36.7 C 61 18 178/81 H 99 08/28/19 07:10 60 Date Exam was Performed: 08/28/19 Time Exam was Performed: 12:23 - Problem List & Annotations (1) Weakness SNOMED Code(s): 98310862 Code(s): R53.1 - WEAKNESS Status: Acute Current Visit: Yes (2) Cellulitis of right lower extremity SNOMED Code(s): 203796848 Code(s): L03.115 - CELLULITIS OF RIGHT LOWER LIMB Status: Acute Current Visit: No (3) Leg swelling SNOMED Code(s): 511725871 Code(s): M79.89 - OTHER SPECIFIED SOFT TISSUE DISORDERS Status: Acute Current Visit: No - Problem List Review Problem List Initiated/Reviewed/Updated: Yes - Plan Plan:: This is a 59 Y/O pleasant moderately obese male with past medical history of Hypertension, Hyperlipidemia, Rheumatoid arthritis, CKD stage III, Osteomyelitis of the spine in the past, COPD and CHF, Non-ischemic cardiomyopathy, S/P AICD and history of DVT, initially admitted to [facility] with Sepsis, septic shock, later transferred to Swing bed at [place] for Continuation of PT/OT. Pt also had RADHA while admitted to [facility] and Pt had Renal biopsy ( 08/10/19) and showed acute necrotizing crescentic glomerulonephritis, there are 9 glomeruli, 2 were globally sclerosed, 4 showed cellular crescents, 1 fibrocellular crescent, the remaining glomeruli appeared normal cellular with open capillary chips, there is also acute tubular injury, alsoshowed mild intimal fibrosis Impression and Plan: 1. Generalized Debility: he was extremely weak and needed to continue PT/OT -He is doing better now and will continue current PT/OT therapy plan 2. Right lower extremity Cellulitis: It has improved no erythema or redness or tenderness -Will continue oral Doxycycline at 100 mg BID and Levofloxacin 750 mg q 48 hrs -He will follow with wound clinic 3. Hypertension: BP is acceptable and will continue Coreg at 25 mg BID 4. COPD: Continue Duoneb and albuterol 5. Dyslipidemia: Continue Lipitor at 40 mg daily 6. Acute Necrotizing Crescentic Glomerulonephritis: He has completed 3 does of IV solumedrol and now on Prednisone at 60 mg daily -He had quantiferon test for TB and it is negative, JACKIE polyoma Virus <500 copies /ml ( and ref range is <500 copies /ml) and Hep B and Hep C is also negative -Plan to start Rituximab and was supposed to be seen by Oncology for stating Rituximab but had not seen by oncology -need to start him on cytoxan at 1.5-2 mg/kg/day [will go for Low dose protocol ) and start at 100 mg PO daily
[2019-08-28] MEDS: atorvaSTATin 20 MG Tab PO SCH (23:22)
[2019-08-29] MEDS: Pantoprazole 40 MG Tab.CR PO SCH (07:19)
[2019-08-29] MEDS: oxyCODONE 5 MG Tab PO SCH ×4 (07:19→23:45)
[2019-08-29] MEDS: Albuterol/Ipratropium 3.0-0.5 MG/3 ML Neb Soln NEB SCH ×3 (07:48→20:42)
[2019-08-29] MEDS: Acetaminophen 500 MG Tab PO SCH ×3 (10:35→23:44)
[2019-08-29] MEDS: Carvedilol 25 MG Tab PO SCH ×2 (10:36→18:03)
[2019-08-29] MEDS: predniSONE 20 MG Tab PO SCH (10:37)
[2019-08-29] MEDS: Enoxaparin 30 MG/0.3 ML Syringe SUBCUT SCH (10:38)
[2019-08-29] MEDS: Aspirin 325 MG Tab.EC PO SCH (10:38)
[2019-08-29] MEDS: SYMBICORT INH SCH ×2 (11:07→20:42)
[2019-08-29] MEDS: atorvaSTATin 20 MG Tab PO SCH (20:42)
[2019-08-30] MEDS: Pantoprazole 40 MG Tab.CR PO SCH (05:30)
[2019-08-30] MEDS: oxyCODONE 5 MG Tab PO SCH ×4 (05:30→23:48)
[2019-08-30] MEDS: Albuterol/Ipratropium 3.0-0.5 MG/3 ML Neb Soln NEB SCH ×3 (08:02→20:44)
[2019-08-30] MEDS: predniSONE 20 MG Tab PO SCH (08:46)
[2019-08-30] MEDS: Carvedilol 25 MG Tab PO SCH ×2 (08:46→19:38)
[2019-08-30] MEDS: Aspirin 325 MG Tab.EC PO SCH (08:46)
[2019-08-30] MEDS: Acetaminophen 500 MG Tab PO SCH ×3 (08:47→23:47)
[2019-08-30] MEDS: Enoxaparin 30 MG/0.3 ML Syringe SUBCUT SCH (08:48)
[2019-08-30] MEDS: SYMBICORT INH SCH ×2 (08:48→20:44)
[2019-08-30] MEDS: atorvaSTATin 20 MG Tab PO SCH (20:44)
[2019-08-31] MEDS: Pantoprazole 40 MG Tab.CR PO SCH (05:43)
[2019-08-31] MEDS: oxyCODONE 5 MG Tab PO SCH ×3 (05:43→17:43)
[2019-08-31] MEDS: Albuterol/Ipratropium 3.0-0.5 MG/3 ML Neb Soln NEB SCH ×3 (07:19→22:02)
[2019-08-31] MEDS: predniSONE 20 MG Tab PO SCH (08:41)
[2019-08-31] MEDS: Aspirin 325 MG Tab.EC PO SCH (08:41)
[2019-08-31] MEDS: Acetaminophen 500 MG Tab PO SCH ×2 (08:42→16:07)
[2019-08-31] MEDS: Carvedilol 25 MG Tab PO SCH ×2 (08:42→17:43)
[2019-08-31] MEDS: Enoxaparin 30 MG/0.3 ML Syringe SUBCUT SCH (08:43)
[2019-08-31] MEDS: SYMBICORT INH SCH ×2 (08:44→22:01)
[2019-08-31] MEDS: atorvaSTATin 20 MG Tab PO SCH (21:59)
[2019-09-01] MEDS: oxyCODONE 5 MG Tab PO SCH ×3 (00:30→12:43)
[2019-09-01] MEDS: Acetaminophen 500 MG Tab PO SCH ×3 (00:31→16:07)
[2019-09-01] MEDS: Pantoprazole 40 MG Tab.CR PO SCH (06:14)
[2019-09-01] MEDS: Albuterol/Ipratropium 3.0-0.5 MG/3 ML Neb Soln NEB SCH ×2 (07:32→17:12)
[2019-09-01 08:14] VITALS: BP 133/63; PULSE 65
[2019-09-01] MEDS: predniSONE 20 MG Tab PO SCH (08:55)
[2019-09-01] MEDS: Carvedilol 25 MG Tab PO SCH (08:55)
[2019-09-01] MEDS: Aspirin 325 MG Tab.EC PO SCH (08:55)
[2019-09-01] MEDS: Enoxaparin 30 MG/0.3 ML Syringe SUBCUT SCH (08:58)
[2019-09-01] MEDS: SYMBICORT INH SCH (12:43)
[2019-09-02] MEDS: Carvedilol 25 MG Tab PO SCH ×2 (03:12→12:42)
[2019-09-02] MEDS: oxyCODONE 5 MG Tab PO SCH ×4 (03:12→12:43)
[2019-09-02] MEDS: atorvaSTATin 20 MG Tab PO SCH (03:13)
[2019-09-02] MEDS: Albuterol/Ipratropium 3.0-0.5 MG/3 ML Neb Soln NEB SCH ×2 (03:13→12:42)
[2019-09-02] MEDS: SYMBICORT INH SCH ×2 (03:14→12:43)
[2019-09-02] MEDS: Acetaminophen 500 MG Tab PO SCH ×2 (03:14→12:42)
[2019-09-02] MEDS: Pantoprazole 40 MG Tab.CR PO SCH (07:24)
[2019-09-02] MEDS: predniSONE 20 MG Tab PO SCH (12:42)
[2019-09-02] MEDS: Enoxaparin 30 MG/0.3 ML Syringe SUBCUT SCH (12:42)
[2019-09-02] MEDS: Aspirin 325 MG Tab.EC PO SCH (12:42)
== END 2019-09-02 12:18 | disposition left against medical advice (07) | DRG 947 ==
LOC: OBSVTOIN 13:58 → DL.MS 13:58 → INTOOBSV 13:58 → UNDOADMOB 13:58 → OBSVTOIN 14:52 → DL.MS 14:52
PROVIDERS: ADMIT Internal Medicine; ATTEND Hospitalist
DX: R53.81 Other malaise (principal); N00.7 Acute nephritic syndrome with diffuse crescentic glomerulonephritis; L03.115 Cellulitis of right lower limb; I42.8 Other cardiomyopathies; I13.0 Hypertensive heart and chronic kidney disease with heart failure and stage 1 through stage 4 chronic kidney disease, or unspecified chronic kidney disease; N17.9 Acute kidney failure, unspecified; E78.5 Hyperlipidemia, unspecified; N18.3 Chronic kidney disease, stage 3 (moderate); I50.9 Heart failure, unspecified; J44.9 Chronic obstructive pulmonary disease, unspecified; I25.10 Atherosclerotic heart disease of native coronary artery without angina pectoris; I89.0 Lymphedema, not elsewhere classified; Z95.810 Presence of automatic (implantable) cardiac defibrillator; Z87.891 Personal history of nicotine dependence; Z86.718 Personal history of other venous thrombosis and embolism; Z23 Encounter for immunization
CPT/HCPCS: 36415; 80048; 82565; 84460; 85025; 85651; 86140; 94640; 97110-GO; 97110-GP; 97116-GP; 97162-GP; 97165-GO; 97530-GO; A9270-GY; J1644; J1650; J7620-GY

== ENCOUNTER 2019-09-06 15:50 | Emergency (ER) | payer MEDICARE, MEDICAID ==
[2019-09-06 16:10] VITALS: BP 134/57; PULSE 86
--- NOTE | 2019-09-06 16:19 | EDM.PDOC ---
ED HPI GENERAL MEDICAL PROBLEM - General Chief Complaint: Skin Complaint Stated Complaint: DRESSING CHANGE Time Seen by Provider: 09/06/19 16:12 Source of Information: Reports: Patient History Limitations: Reports: No Limitations - History of Present Illness INITIAL COMMENTS - FREE TEXT/NARRATIVE: states been getting dressing changes from home health nurse and was told to come to ER for wound check. was suppose to see telemed today but missed it from sleeping-in. was here on swing bed but signed out. has appt with surgeon end of month. med-dental surgeon who has seen pt wound before states wound not worse but needs surg consult. explained to pt it is unwise to sign out before total treatment has been done. - Related Data Allergies Allergy/AdvReac Type Severity Reaction Status Date / Time No Known Allergies Allergy Verified 09/06/19 16:10 Home Meds: Home Meds Acetaminophen 1,000 mg PO Q8H 01/16/19 [History] Albuterol [Ventolin HFA] 2 puff INH Q6H PRN 01/16/19 [History] Aspirin [Aspirin EC] 325 mg PO DAILY 01/16/19 [History] Budesonide/Formoterol [Symbicort 160-4.5 MCG] 2 puff INH BID 01/16/19 [History] Carvedilol [Coreg] 25 mg PO BIDMEALS 01/16/19 [History] atorvaSTATin [Lipitor] 40 mg PO BEDTIME 01/16/19 [History] Albuterol/Ipratropium [DuoNeb 3.0-0.5 MG/3 ML] 3 ml NEB TID 08/15/19 [History] Doxycycline [Vibramycin] 100 mg PO Q12H 08/15/19 [History] Levofloxacin 750 mg PO Q48H 08/15/19 [History] Pantoprazole Sodium [Protonix] 40 mg PO ACBREAKFAST 08/15/19 [History] oxyCODONE 5 mg PO Q6HR 08/15/19 [History] predniSONE [Prednisone] 60 mg PO WITHBREAKFAST 08/15/19 [History] Past Medical History - Past Health History Medical/Surgical History: Denies Medical/Surgical History HEENT History: Reports: None Cardiovascular History: Reports: CAD, Cardiomyopathy, Hypertension, CT, Pacemaker Respiratory History: Reports: SOB Other Respiratory History: pt unsure of respiratory history but has inhaler, pulmonary edma Gastrointestinal History: Reports: None Genitourinary History: Reports: Urinary Incontinence Musculoskeletal History: Reports: Fracture, RA Other Musculoskeletal History: 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, broken lef Neurological History: Reports: None Psychiatric History: Reports: None Endocrine/Metabolic History: Reports: Obesity/BMI 30+ Hematologic History: Reports: Blood Transfusion(s) Immunologic History: Reports: None Oncologic (Cancer) History: Reports: None Dermatologic History: Reports: Cellulitis - Infectious Disease History Infectious Disease History: Reports: MRSA - Past Surgical History Head Surgeries/Procedures: Reports: None HEENT Surgical History: Reports: Other (See Below) Other HEENT Surgeries/Procedures: Surgery for hole in eardrum Cardiovascular Surgical History: Reports: AICD Respiratory Surgical History: Reports: None GI Surgical History: Reports: None Male Surgical History: Reports: None Social & Family History - Family History Family Medical History: Noncontributory - Caffeine Use Caffeine Use: Reports: Coffee - Living Situation & Occupation Living situation: Reports: with Family Occupation: Disabled ED ROS GENERAL - Review of Systems Review Of Systems: Comprehensive ROS is negative, except as noted in HPI. ED EXAM, SKIN/RASH Exam: See Below Exam Limited By: No Limitations General Appearance: Alert, WD/WN, No Apparent Distress Ears: Hearing Grossly Normal Throat/Mouth: Normal Voice, No Airway Compromise Head: Atraumatic Neck: Non-Tender, Full Range of Motion Respiratory/Chest: No Respiratory Distress Cardiovascular: Regular Rate, Rhythm GI/Abdominal: Soft, Non-Tender Extremities: Other (right lateral lower leg with open wound, no drainage, no odours, no lymphangitis, mild local swelling from LYSSA , no s/s cellulitis.) Neurological: Alert, Oriented, Normal Cognition, No Motor/Sensory Deficits Psychiatric: Flat Affect Skin: Warm, Dry, Normal Color Location, Skin: Lower Extremity, Right Characteristics: Necrotic Associated features: Warmth, Tenderness, Swelling. No: Lymphangitis, Weeping Lymphatic: No Adenopathy Course - Vital Signs Last Recorded V/S: Last Vital Signs Temp 35.8 C 09/06/19 15:59 Pulse 86 09/06/19 15:59 Resp 20 09/06/19 15:59 BP 134/57 L 09/06/19 15:59 Pulse Ox 98 09/06/19 15:59 - Orders/Labs/Meds Labs: Laboratory Tests 01/04/1809/06/19 09/06/19 Range/Units 16:27 16:27 16:27 WBC 7.8 (5.0-10.0) 10^3/uL RBC 3.45 L (4.6-6.2) 10^6/uL Hgb 9.2 L (14.0-18.0) g/dL Hct 29.5 L (40.0-54.0) % MCV 85.5 (80-100) fL MCH 26.7 L (27.0-34.0) pg MCHC 31.2 L (33.0-35.0) g/dL Plt Count 117 L D (150-450) 10^3/uL Neut % (Auto) 70.3 (42.2-75.2) % Lymph % (Auto) 14.4 L (20.5-50.1) % [place] % (Auto) 9.0 H (2-8) % Eos % (Auto) 6.2 H (1.0-3.0) % Baso % (Auto) 0.1 (0.0-1.0) % Sodium 140 (135-145) mmol/L Potassium 4.1 (3.6-5.0) mmol/L Chloride 108 (101-111) mmol/L Carbon Dioxide 24.0 (21.0-31.0) mmol/L Anion Gap 12.1 BUN 24 H D (7-18) mg/dL Creatinine 1.4 H (0.6-1.3) mg/dL Est Cr Clr Drug Dosing 53.61 mL/min Estimated GFR (MDRD) 52 BUN/Creatinine Ratio 17.14 Glucose 97 (74-105) mg/dL Lactic Acid 1.0 (0.5-2.0) mmol/L Calcium 7.3 L (8.4-10.2) mg/dl Total Bilirubin 0.5 (0.2-1.0) mg/dL AST 19 (10-42) IU/L ALT 18 (10-60) IU/L Alkaline Phosphatase 39 L (42-121) IU/L Total Protein 5.0 L (6.7-8.2) g/dl Albumin 2.3 L (3.2-5.5) g/dl Globulin 2.7 Albumin/Globulin Ratio 0.85 - Re-Assessments/Exams Free Text/Narrative Re-Assessment/Exam: 09/06/19 17:07 results discussed with pt. Departure - Departure Time of Disposition: 17:08 Disposition: Home, Self-Care 01 Condition: Good Clinical Impression: Poor compliance Leg ulcer Qualifiers: Laterality: right Non-pressure ulcer stage: unspecified non-pressure ulcer stage Qualified Code(s): L97.919 - Non-pressure chronic ulcer of unspecified part of right lower leg with unspecified severity - Discharge Information Forms: ED Department Discharge Additional Instructions: 1) continue daily wound care 2) see clinic Wednesday to have surgeon here for check wound rx given; clindamycin 150mg qid x 40 Sepsis Event Note - Evaluation Sepsis Screening Result: No Definite Risk - Focused Exam Vital Signs: Vital Signs Temp Pulse Resp BP Pulse Ox 09/06/19 15:59 35.8 C 86 20 134/57 L 98 Date Exam was Performed: 09/06/19 Time Exam was Performed: 17:01
[2019-09-06 16:53] LABS: ANION GAP 12.1
== END 2019-09-06 17:24 | disposition home or self-care (01) ==
LOC: DL.ED 15:50
DX: L97.919 Non-pressure chronic ulcer of unspecified part of right lower leg with unspecified severity (principal); I10 Essential (primary) hypertension; I25.2 Old myocardial infarction; I25.10 Atherosclerotic heart disease of native coronary artery without angina pectoris; E66.9 Obesity, unspecified; Z91.19 Patient's noncompliance with other medical treatment and regimen; Z79.82 Long term (current) use of aspirin; Z79.899 Other long term (current) drug therapy; Z68.25 Body mass index [BMI] 25.0-25.9, adult
CPT/HCPCS: 36415; 80053; 83605; 85025; 99283

== ENCOUNTER 2019-10-24 16:49 | Inpatient (IN) | payer MEDICARE, MEDICAID ==
[2019-10-24] MEDS ORDERED: Albuterol/Ipratropium 3.0-0.5 MG/3 ML Neb Soln NEB ONE (17:07)
--- NOTE | 2019-10-24 17:16 | EDM.PDOC ---
<Anselmo Barrientos - Last Filed: 10/24/19 18:21> ED HPI GENERAL MEDICAL PROBLEM - General Chief Complaint: Respiratory Problem Stated Complaint: RESPIRATORY PROBLEM Time Seen by Provider: 10/24/19 17:12 Source of Information: Reports: Patient, RN, RN Notes Reviewed History Limitations: Reports: No Limitations - History of Present Illness INITIAL COMMENTS - FREE TEXT/NARRATIVE: Patient presents to ER with complaints of shortness of breath and feeling sick 2 -3 days, children at home are ill and positive for influenza that got diagnosed last . Pt dyspneic at rest. Pt states has had cough for 1 week, greenish sputum produced. Pt states 'no fever'. Pt does not use home O2, hx of COPD. No N/V/D. Eyes have yellow-green drainage present. Pt uses walker/ wheelchair at home. Lung sounds fine crackles with faint expiratory wheezes scattered throughout. Onset: Gradual Duration: Day(s): (2-3 days) Location: Reports: Head, Chest Severity: Mild Improves with: Reports: None Worsens with: Reports: None Associated Symptoms: Reports: cough w sputum, Shortness of Breath. Denies: Chest Pain, Fever/Chills, Headaches, Loss of Appetite, Nausea/Vomiting, Weakness - Related Data Allergies Allergy/AdvReac Type Severity Reaction Status Date / Time No Known Allergies Allergy Verified 10/25/19 01:45 Home Meds: Home Meds Acetaminophen 1,000 mg PO Q8H 01/16/19 [History] Albuterol [Ventolin HFA] 2 puff INH Q6H PRN 01/16/19 [History] Aspirin [Aspirin EC] 325 mg PO DAILY 01/16/19 [History] Budesonide/Formoterol [Symbicort 160-4.5 MCG] 2 puff INH BID 01/16/19 [History] Carvedilol [Coreg] 25 mg PO BIDMEALS 01/16/19 [History] atorvaSTATin [Lipitor] 40 mg PO BEDTIME 01/16/19 [History] Albuterol/Ipratropium [DuoNeb 3.0-0.5 MG/3 ML] 3 ml NEB TID 08/15/19 [History] Doxycycline [Vibramycin] 100 mg PO Q12H 08/15/19 [History] Levofloxacin 750 mg PO Q48H 08/15/19 [History] Pantoprazole Sodium [Protonix] 40 mg PO ACBREAKFAST 08/15/19 [History] oxyCODONE 5 mg PO Q6HR 08/15/19 [History] predniSONE [Prednisone] 60 mg PO WITHBREAKFAST 08/15/19 [History] Bumetanide 2 mg PO DAILY 10/24/19 [History] Isosorbide Mononitrate [Isosorbide Mononitrate ER] 30 mg PO DAILY 10/24/19 [ History] Ondansetron [Zofran] 8 mg PO Q8H PRN 10/24/19 [History] Prochlorperazine [Compazine] 10 mg PO Q6H PRN 10/24/19 [History] metOLazone [Metolazone] 2.5 mg PO Q48H 10/24/19 [History] Past Medical History - Past Health History Medical/Surgical History: Denies Medical/Surgical History HEENT History: Reports: None Cardiovascular History: Reports: CAD, Cardiomyopathy, Hypertension, DE, Pacemaker Respiratory History: Reports: SOB Other Respiratory History: pt unsure of respiratory history but has inhaler, pulmonary edma Gastrointestinal History: Reports: None Genitourinary History: Reports: Urinary Incontinence Musculoskeletal History: Reports: Fracture, RA Other Musculoskeletal History: 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, broken lef Neurological History: Reports: None Psychiatric History: Reports: None Endocrine/Metabolic History: Reports: Obesity/BMI 30+ Hematologic History: Reports: Blood Transfusion(s) Immunologic History: Reports: None Oncologic (Cancer) History: Reports: None Dermatologic History: Reports: Cellulitis - Infectious Disease History Infectious Disease History: Reports: MRSA - Past Surgical History Head Surgeries/Procedures: Reports: None HEENT Surgical History: Reports: Other (See Below) Other HEENT Surgeries/Procedures: Surgery for hole in eardrum Cardiovascular Surgical History: Reports: AICD Respiratory Surgical History: Reports: None GI Surgical History: Reports: None Male Surgical History: Reports: None Social & Family History - Family History Family Medical History: Noncontributory - Caffeine Use Caffeine Use: Reports: Coffee - Living Situation & Occupation Living situation: Reports: with Family Occupation: Disabled ED ROS GENERAL - Review of Systems Review Of Systems: Comprehensive ROS is negative, except as noted in HPI. ED EXAM, GENERAL - Physical Exam Exam: See Below Exam Limited By: No Limitations General Appearance: Alert, WD/WN, Mild Distress Throat/Mouth: Normal Inspection, Normal Lips, Normal Teeth, Normal Gums, Normal Oropharynx, Normal Voice, No Airway Compromise Head: Atraumatic, Normocephalic Neck: Normal Inspection, Supple, Non-Tender, Full Range of Motion Respiratory/Chest: No Accessory Muscle Use, Chest Non-Tender, Decreased Breath Sounds, Crackles (bilateral), Wheezing (bilateral) Cardiovascular: Normal Peripheral Pulses, Regular Rate, Rhythm, No Edema, No Gallop, No JVD, No Murmur, No Rub GI/Abdominal: Normal Bowel Sounds, Soft, Non-Tender, No Organomegaly, No Distention, No Abnormal Bruit, No Mass Extremities: Normal Range of Motion, Non-Tender, Pedal Edema, Other (edema in all extremities) Neurological: Alert, Oriented, CN II-XII Intact, Normal Cognition, Normal Gait, Normal Reflexes, No Motor/Sensory Deficits Psychiatric: Normal Affect, Normal Mood Skin Exam: Warm, Dry, Intact, Normal Color, No Rash Lymphatic: No Adenopathy Course - Vital Signs Last Recorded V/S: Last Vital Signs Temp 36.1 C 10/24/19 19:19 Pulse 77 10/24/19 20:09 Resp 24 H 10/24/19 19:19 BP 149/81 H 10/24/19 19:19 Pulse Ox 97 10/24/19 20:09 - Orders/Labs/Meds Orders: Active Orders 24 hr Category Date Time Status EKG Documentation Completion [RC] URGENT Care 10/24/19 17:07 Active RT Aerosol Therapy [RC] ASDIRECTED Care 10/24/19 17:09 Active CULTURE BLOOD [BC] Stat Lab 10/24/19 17:28 Received CULTURE BLOOD [BC] Stat Lab 10/24/19 18:31 Received CULTURE SPUTUM + SMEAR [] Stat Lab 10/24/19 17:38 Results Medication Orders Acetaminophen (Tylenol) 650 mg PO Q4H PRN PRN Reason: Pain (Mild 1-3)/fever Albuterol/Ipratropium (Duoneb 3.0-0.5 Mg/3 Ml) 3 ml NEB QID [facility] Last Admin: 10/24/19 20:49 Dose: 3 ml Aspirin (Ecotrin) 325 mg PO DAILY [facility] Atorvastatin Calcium (Lipitor) 40 mg PO BEDTIME [facility] Last Admin: 10/24/19 21:01 Dose: 40 mg Budesonide (Pulmicort) 0.5 mg NEB BIDRT [facility] Last Admin: 10/24/19 20:55 Dose: 0.5 mg Carvedilol (Coreg) 25 mg PO BIDMEALS [facility] Docusate Sodium (Colace) 100 mg PO BID PRN PRN Reason: Constipation Furosemide (Lasix) 60 mg IVPUSH BID [facility] Last Admin: 10/24/19 20:51 Dose: 60 mg Heparin Sodium (Porcine) (Heparin Sodium) 5,000 units SUBCUT Q8HR [facility] Last Admin: 10/25/19 05:45 Dose: 5,000 units Admin: 10/24/19 23:14 Dose: Admin: 10/24/19 20:45 Dose: 5,000 units Azithromycin 500 mg/ Sodium (Chloride) 250 mls @ 250 mls/hr IV DAILY@2000 [facility] Last Admin: 10/24/19 20:44 Dose: 250 mls/hr Ceftriaxone Sodium 1 gm/ (Sodium Chloride) 50 mls @ 100 mls/hr IV DAILY@1900 [facility] Isosorbide Mononitrate (Imdur) 30 mg PO DAILY [facility] Magnesium Hydroxide (Milk Of Magnesia) 30 ml PO Q12H PRN PRN Reason: Constipation Methylprednisolone Sodium Succinate (Solu-Medrol) 80 mg IVPUSH Q8H [facility] Last Admin: 10/25/19 05:45 Dose: Admin: 10/24/19 20:47 Dose: 80 mg Ondansetron HCl (Zofran Odt) 8 mg PO Q8H PRN PRN Reason: Nausea Oseltamivir Phosphate (Tamiflu) 30 mg PO BID [facility] Last Admin: 10/24/19 21:54 Dose: 30 mg Oxycodone HCl (Oxycodone) 5 mg PO Q6HR [facility] Last Admin: 10/25/19 05:47 Dose: 5 mg Admin: 10/24/19 23:58 Dose: 5 mg Pantoprazole Sodium (Protonix) 40 mg PO ACBREAKFAST [facility] Last Admin: 10/25/19 05:47 Dose: 40 mg Labs: Laboratory Tests 10/24/19 10/24/19 10/24/19 Range/Units 17:28 17:28 17:28 WBC 6.2 (5.0-10.0) 10^3/uL RBC 3.99 L (4.6-6.2) 10^6/uL Hgb 10.7 L D (14.0-18.0) g/dL Hct 33.9 L (40.0-54.0) % MCV 85.0 (80-100) fL MCH 26.8 L (27.0-34.0) pg MCHC 31.6 L (33.0-35.0) g/dL Plt Count 228 D (150-450) 10^3/uL Neut % (Auto) 89.6 H (42.2-75.2) % Lymph % (Auto) 5.7 L (20.5-50.1) % [place] % (Auto) 4.7 (2-8) % Eos % (Auto) 0.0 L (1.0-3.0) % Baso % (Auto) 0.0 (0.0-1.0) % Sodium 134 L (135-145) mmol/L Potassium 4.0 (3.6-5.0) mmol/L Chloride 94 L D (101-111) mmol/L Carbon Dioxide 31.0 (21.0-31.0) mmol/L Anion Gap 13.0 BUN 41 H (7-18) mg/dL Creatinine 1.5 H (0.6-1.3) mg/dL Est Cr Clr Drug Dosing 50.03 mL/min Estimated GFR (MDRD) 48 BUN/Creatinine Ratio 27.33 Glucose 172 H (74-105) mg/dL Lactic Acid 1.2 (0.5-2.0) mmol/L Calcium 8.0 L (8.4-10.2) mg/dl Total Bilirubin 0.7 (0.2-1.0) mg/dL AST 17 (10-42) IU/L ALT 17 (10-60) IU/L Alkaline Phosphatase 58 (42-121) IU/L Troponin I 0.04 H* (0.00-0.02) ng/ml B-Natriuretic Peptide (0-100) pg/ml Total Protein 6.4 L (6.7-8.2) g/dl Albumin 2.3 L (3.2-5.5) g/dl Globulin 4.1 Albumin/Globulin Ratio 0.56 02/25/20 Range/Units 17:28 WBC (5.0-10.0) 10^3/uL RBC (4.6-6.2) 10^6/uL Hgb (14.0-18.0) g/dL Hct (40.0-54.0) % MCV (80-100) fL MCH (27.0-34.0) pg MCHC (33.0-35.0) g/dL Plt Count (150-450) 10^3/uL Neut % (Auto) (42.2-75.2) % Lymph % (Auto) (20.5-50.1) % [place] % (Auto) (2-8) % Eos % (Auto) (1.0-3.0) % Baso % (Auto) (0.0-1.0) % Sodium (135-145) mmol/L Potassium (3.6-5.0) mmol/L Chloride (101-111) mmol/L Carbon Dioxide (21.0-31.0) mmol/L Anion Gap BUN (7-18) mg/dL Creatinine (0.6-1.3) mg/dL Est Cr Clr Drug Dosing mL/min Estimated GFR (MDRD) BUN/Creatinine Ratio Glucose (74-105) mg/dL Lactic Acid (0.5-2.0) mmol/L Calcium (8.4-10.2) mg/dl Total Bilirubin (0.2-1.0) mg/dL AST (10-42) IU/L ALT (10-60) IU/L Alkaline Phosphatase (42-121) IU/L Troponin I (0.00-0.02) ng/ml B-Natriuretic Peptide 351 H (0-100) pg/ml Total Protein (6.7-8.2) g/dl Albumin (3.2-5.5) g/dl Globulin Albumin/Globulin Ratio Meds: Medications Generic Name Dose Route Start Last Admin Trade Name Freq PRN Reason Stop Dose Admin Acetaminophen 650 mg 10/24/19 20:07 Tylenol PO Q4H PRN Pain (Mild 1-3)/fever Albuterol/Ipratropium 3 ml 10/24/19 21:00 10/24/19 20:49 Duoneb 3.0-0.5 Mg/3 Ml NEB 3 ml QID [facility] Administration Aspirin 325 mg 10/25/19 09:00 Ecotrin PO DAILY [facility] Atorvastatin Calcium 40 mg 10/24/19 21:00 10/24/19 21:01 Lipitor PO 40 mg BEDTIME [facility] Administration Budesonide 0.5 mg 10/24/19 20:12 10/24/19 20:55 Pulmicort NEB 0.5 mg BIDRT [facility] Administration Carvedilol 25 mg 10/25/19 08:00 Coreg PO BIDMEALS [facility] Docusate Sodium 100 mg 10/24/19 20:07 Colace PO BID PRN Constipation Furosemide 60 mg 10/24/19 21:00 10/24/19 20:51 Lasix IVPUSH 60 mg BID [facility] Administration Heparin Sodium (Porcine) 5,000 units 10/24/19 22:00 10/25/19 05:45 Heparin Sodium SUBCUT 5,000 units Q8HR [facility] Administration Azithromycin 500 mg/ Sodium 250 mls @ 250 mls/hr 10/24/19 20:15 10/24/19 20: 44 Chloride IV 250 mls/hr DAILY@2000 [facility] Administration Ceftriaxone Sodium 1 gm/ 50 mls @ 100 mls/hr 10/25/19 19:00 Sodium Chloride IV DAILY@1900 [facility] Isosorbide Mononitrate 30 mg 10/25/19 09:00 Imdur PO DAILY [facility] Magnesium Hydroxide 30 ml 10/24/19 20:07 Milk Of Magnesia PO Q12H PRN Constipation Methylprednisolone Sodium Succinate 80 mg 10/24/19 20:00 10/25/19 05:45 Solu-Medrol IVPUSH Not Given Q8H [facility] Ondansetron HCl 8 mg 10/24/19 20:15 Zofran Odt PO Q8H PRN Nausea Oseltamivir Phosphate 30 mg 10/24/19 21:42 10/24/19 21:54 Tamiflu PO 30 mg BID [facility] Administration Oxycodone HCl 5 mg 10/25/19 00:00 10/25/19 05:47 Oxycodone PO 5 mg Q6HR [facility] Administration Pantoprazole Sodium 40 mg 10/25/19 06:00 10/25/19 05:47 Protonix PO 40 mg ACBREAKFAST [facility] Administration Discontinued Medications Generic Name Dose Route Start Last Admin Trade Name Freq PRN Reason Stop Dose Admin Albuterol/Ipratropium 3 ml 10/24/19 17:07 02/25/20 17:23 Duoneb 3.0-0.5 Mg/3 Ml NEB 10/24/19 17:08 3 ml ONETIME ONE Administration Ceftriaxone Sodium 1 gm/ 50 mls @ 100 mls/hr 10/24/19 19:08 10/24/19 19:36 Sodium Chloride IV 10/24/19 19:37 100 mls/hr ONETIME ONE Administration Oseltamivir Phosphate 75 mg 10/24/19 21:00 10/25/19 06:53 Tamiflu PO Not Given BID [facility] Departure - Departure Disposition: Admitted As Inpatient 64 Clinical Impression: Influenza A Pneumonia Qualifiers: Pneumonia type: due to unspecified organism Laterality: bilateral Lung location : unspecified part of lung Qualified Code(s): J18.9 - Pneumonia, unspecified organism - Discharge Information Sepsis Event Note - Evaluation Sepsis Screening Result: No Definite Risk - Focused Exam Date Exam was Performed: 10/24/19 Time Exam was Performed: 18:21 - My Orders Last 24 Hours: My Active Orders 10/24/19 17:07 EKG Documentation Completion [RC] URGENT 10/24/19 17:09 RT Aerosol Therapy [RC] ASDIRECTED 10/24/19 17:28 CULTURE BLOOD [BC] Stat 10/24/19 17:38 CULTURE SPUTUM + SMEAR [RM] Stat 10/24/19 18:31 CULTURE BLOOD [BC] Stat - Assessment/Plan Last 24 Hours: My Active Orders 10/24/19 17:07 EKG Documentation Completion [RC] URGENT 10/24/19 17:09 RT Aerosol Therapy [RC] ASDIRECTED 10/24/19 17:28 CULTURE BLOOD [BC] Stat 10/24/19 17:38 CULTURE SPUTUM + SMEAR [RM] Stat 10/24/19 18:31 CULTURE BLOOD [BC] Stat <Tyree Kemp G - Last Filed: 10/24/19 23:06> Sepsis Event Note - Focused Exam Date Exam was Performed: 10/24/19 Time Exam was Performed: 23:06 - My Orders Last 24 Hours: My Active Orders 10/24/19 17:07 EKG Documentation Completion [RC] URGENT 10/24/19 17:09 RT Aerosol Therapy [RC] ASDIRECTED 10/24/19 17:28 CULTURE BLOOD [BC] Stat 10/24/19 17:38 CULTURE SPUTUM + SMEAR [RM] Stat 10/24/19 18:31 CULTURE BLOOD [BC] Stat - Assessment/Plan Last 24 Hours: My Active Orders 10/24/19 17:07 EKG Documentation Completion [RC] URGENT 10/24/19 17:09 RT Aerosol Therapy [RC] ASDIRECTED 10/24/19 17:28 CULTURE BLOOD [BC] Stat 10/24/19 17:38 CULTURE SPUTUM + SMEAR [RM] Stat 10/24/19 18:31 CULTURE BLOOD [BC] Stat <Red Ramírez - Last Filed: 10/25/19 07:14> ED HPI GENERAL MEDICAL PROBLEM - General Source of Information: Reports: Patient History Limitations: Reports: No Limitations - History of Present Illness INITIAL COMMENTS - FREE TEXT/NARRATIVE: This 59 yo male patient reports to the ED with his daughter due to feeling ill over the past 2 days. The patient reports he has been exposed to the flu through grandchildren in his home. The patient has a history of COPD, CHF and hypertension. The patient reports his symptoms have gotten worse throughout the day. Onset Date: 10/23/19 Duration: Constant, Getting Worse Location: Reports: Chest Quality: Reports: Other Severity: Moderate Improves with: Reports: None Worsens with: Reports: None Context: Reports: Other Associated Symptoms: Reports: cough w sputum, Shortness of Breath ED ROS GENERAL - Review of Systems Review Of Systems: Comprehensive ROS is negative, except as noted in HPI. ED EXAM, GENERAL - Physical Exam Exam: See Below Exam Limited By: No Limitations General Appearance: Alert, WD/WN, Moderate Distress, Obese Eye Exam: Bilateral Eye: EOMI, Normal Inspection, PERRL Ears: Normal External Exam, Normal Canal, Hearing Grossly Normal, Normal TMs Nose: Normal Inspection, Normal Mucosa, No Blood Throat/Mouth: Normal Inspection, Normal Lips, Normal Teeth, Normal Gums, Normal Oropharynx, Normal Voice, No Airway Compromise Head: Atraumatic, Normocephalic Neck: Normal Inspection, Supple, Non-Tender, Full Range of Motion Respiratory/Chest: Decreased Breath Sounds, Rhonchi, Wheezing Cardiovascular: Normal Peripheral Pulses, Regular Rate, Rhythm, No Gallop, No JVD, No Murmur, No Rub GI/Abdominal: Normal Bowel Sounds, Soft, Non-Tender, No Organomegaly, No Distention, No Abnormal Bruit, No Mass, Other (obese) (Male) Exam: Deferred Rectal (Males) Exam: Deferred Back Exam: Normal Inspection, Full Range of Motion, NT Extremities: Normal Inspection, Normal Range of Motion, Non-Tender, Normal Capillary Refill Neurological: Alert, Oriented, CN II-XII Intact, Normal Cognition, Normal Gait, Normal Reflexes, No Motor/Sensory Deficits Psychiatric: Normal Affect, Normal Mood Skin Exam: Warm, Dry, Intact, Normal Color, No Rash Lymphatic: No Adenopathy Departure - Departure Time of Disposition: 19:10 Condition: Poor Sepsis Event Note - Focused Exam Date Exam was Performed: 10/25/19 Time Exam was Performed: 07:04
[2019-10-24] MEDS ORDERED: cefTRIAXone 1 GM in Sodium Chloride 0.9% 50 ML IV ONE (19:08)
[2019-10-24] MEDS ORDERED: Magnesium Hydroxide 400 MG/5 ML Susp 30 ML Cup PO PRN (20:07)
[2019-10-24] MEDS ORDERED: Docusate Sodium 100 MG Cap PO PRN (20:07)
[2019-10-24] MEDS ORDERED: Acetaminophen 325 MG Tab PO PRN (20:07)
[2019-10-24] MEDS ORDERED: Ondansetron 4 MG Tab.DIS PO PRN (20:15)
[2019-10-24] MEDS: Azithromycin 500 MG in Sodium Chloride 0.9% 250 ML IV SCH (20:44)
[2019-10-24] MEDS: Heparin Sodium 5,000 Units/ML Vial SUBCUT SCH ×2 (20:45→23:14)
[2019-10-24] MEDS: methylPREDNISolone Sodium Succinate 40 MG/1 ML SDV IVPUSH SCH (20:47)
[2019-10-24] MEDS: Albuterol/Ipratropium 3.0-0.5 MG/3 ML Neb Soln NEB SCH (20:49)
[2019-10-24] MEDS: Furosemide 40 MG/4 ML VIAL IVPUSH SCH (20:51)
[2019-10-24] MEDS: Budesonide 0.5 MG/2 ML Neb Susp NEB SCH (20:55)
[2019-10-24] MEDS ORDERED: Oseltamivir 75 MG Cap PO SCH (21:00)
[2019-10-24] MEDS: atorvaSTATin 20 MG Tab PO SCH (21:01)
[2019-10-24] MEDS: Oseltamivir 30 MG Cap PO SCH (21:54)
[2019-10-24] MEDS: oxyCODONE 5 MG Tab PO SCH (23:58)
--- NOTE | 2019-10-25 02:23 | HP ---
CHIEF COMPLAINT: Increasing shortness of breath. HISTORY OF PRESENT ILLNESS: Mr. Constantino Chambers is a 59-year-old male with a medical history significant for hypertension, hyperlipidemia, rheumatoid arthritis, history of deep venous thrombosis in the past, ischemic cardiomyopathy, lower extremity ulcers, chronic tobacco use in the past, septic arthritis of the knee in the past, presented to the ER with complaints of increasing shortness of breath and noted to have bilateral pneumonia along with possible CHF exacerbation, COPD exacerbation, and influenza positive, needing admission to the hospital. At this time, the patient claims that he has been feeling sick for the last 2-3 days, which has been progressively getting worse. He complains of increasing shortness of breath. He grades the shortness of breath as 8/10 in intensity, which got aggravated on exertion, relieved with rest, associated with cough with sputum, which is greenish yellow in color. Complains of having chills, but did not take his temperature at home. He had sick contacts. Two of his grandkids were sick also. No recent travel. Denies any chest pains. No abdominal pain. No nausea. No vomiting. No diarrhea. The patient denied any history of chest pains on exertion, but has dyspnea on exertion. No history of orthopnea or paroxysmal nocturnal dyspnea. The patient denied any history of hematemesis, hematochezia, or melenic stools. Normal bowel and bladder habits otherwise. REVIEW OF SYSTEMS: A complete review of system including skin, ear, nose, and throat, cardiovascular system, respiratory system, gastrointestinal system, genitourinary system, hematology, oncology, neurology, allergy, immunology, constitutional were all evaluated and were negative except for the above-said notes. PAST MEDICAL HISTORY: Significant for hypertension, hyperlipidemia, nonischemic cardiomyopathy, status post AICD placed, chronic congestive heart failure secondary to systolic dysfunction, rheumatoid arthritis, history of chronic venous stasis ulcer to the legs, chronic kidney disease, status post AICD placed. PAST SURGICAL HISTORY: Significant for leg tibial-femoral fracture, intramedullary nail, knee arthroscopy, status post upper endoscopy, cardiac defibrillator placement, cardiac catheterization. FAMILY HISTORY: Significant for heart disease in his father, cerebrovascular accident in his father, substance abuse in his father, kidney disease in his sister, and heart attack in his brother. SOCIAL HISTORY: The patient had history of smoking in the past, but quit smoking since 2013. History of occasional alcohol intake. No history of drug abuse. ALLERGIES: No known drug allergies. HOME MEDICATIONS: Include metolazone 2.5 mg every 48 hours, Compazine 10 mg q.6 hours as needed, Zofran 8 mg every 8 hours as needed, Imdur 30 mg daily, Bumex 2 mg oral daily, prednisone 60 mg with breakfast, oxycodone 5 mg every 6 hours as needed, Lipitor 40 mg at bedtime, Protonix 40 mg daily, levofloxacin 750 mg every 48 hours, doxycycline 100 mg q.12 hourly. Unsure if the patient is taking these medications at home. Symbicort 2 puff inhalation twice a day, aspirin 325 mg daily, DuoNeb 3 mL nebulizer 3 times a day, Tylenol 1000 mg every 8 hours. PHYSICAL EXAMINATION: Vital signs: Temperature of 97.7, pulse of 77, blood pressure of 124/69, respiratory rate of 20, saturating at 86% on room air. General appearance: The patient is well oriented to time, place, and person. Follows commands spontaneously. Cardiovascular system: S1, S2 heard with normal intensity. No gallops. Respiratory system: Bilateral crepitations and wheeze noted. Decreased breath sounds to the bases. Abdomen: Soft. Bowel sounds positive. Nontender. No rigidity. Extremities: Edema of bilateral lower extremities, but more so to the right lower extremity and superficial ulcer noted to the right lower extremity. Neurology: No gross focal neurological deficit. LABORATORY DATA: WBC 6.2, hemoglobin 10.7, hematocrit 33.9, platelet count 228. Sodium 134, potassium 4, chloride 194, bicarb 31, BUN 41, creatinine 1.5, glucose 172, lactic acid 1.2, AST 17, ALT 17, alkaline phosphatase 58. Troponin 0.04. B-natriuretic peptide 351. ASSESSMENT: 1. Influenza A positive. 2. Bilateral pneumonia. 3. Acute chronic obstructive pulmonary disease exacerbation. 4. Acute hypoxic respiratory failure. 5. Acute on chronic congestive heart failure with systolic dysfunction with ejection fraction of 25% to 30%. End-diastolic dysfunction with grade 1 diastolic dysfunction. 6. Hypertension. 7. Hyperlipidemia. 8. History of nonischemic cardiomyopathy, status post automated implantable cardioverter-defibrillator placed. 9. Chronic venous stasis ulcer to the right lower extremity. 10.History of deep venous thrombosis in the past. 11.Rheumatoid arthritis, on chronic immunosuppressant therapy. 12.Possible cellulitis of the right lower extremity. 13.Chronic kidney disease. PLAN: 1. Influenza A. The patient is tested positive for influenza A. We will start him on Tamiflu. We will keep him on droplet and contact isolation for now. 2. Pneumonia. The patient noted to have bilateral pneumonia. We will obtain sputum cultures, blood cultures. Start him on IV antibiotics, ceftriaxone and Zithromax, and we will titrate the antibiotics once we have the culture reports available. 3. Acute chronic obstructive pulmonary disease exacerbation. The patient noted to have wheeze bilaterally. We will start him on DuoNeb and Pulmicort nebulizers. We will start him on IV methylprednisolone. The patient will be encouraged to use incentive spirometer and flutter valve for better pulmonary toileting. 4. Acute on chronic congestive heart failure. The patient noted to have elevated B-natriuretic peptide. Crackles to the lung exam and pleural effusion on the chest x-ray. We will start him on IV Lasix. We will closely monitor input, output, and daily weights. 5. Chronic kidney disease, remains stable. Try to avoid nephrotoxic agents. Dose adjust medications for renal function. 6. Chronic venous stasis ulcer to the right lower extremity. The patient has ulcer to the right lower extremity. We will continue with wound dressing changes. Continue with current antibiotic regimen. We will also get an ultrasound Doppler of the lower extremity as this seems to be more swollen than the left side. 7. Deep venous thrombosis prophylaxis. We will have him on Lovenox for deep venous thrombosis prophylaxis. 8. Acute hypoxic respiratory failure. The patient was saturating only at 86% on room air. He is requiring around 2.5 L of nasal cannula oxygen. Continue the same. Try to maintain saturation around 95%. 9. Code status. The patient wants to be full code. 10.Discussed with ER staff regarding the plan of care. Reviewed the labs and medications. Reviewed the charts for medical history and is summarized as above. [facility] /[id number]
[2019-10-25] MEDS: Heparin Sodium 5,000 Units/ML Vial SUBCUT SCH ×3 (05:45→21:02)
[2019-10-25] MEDS: methylPREDNISolone Sodium Succinate 40 MG/1 ML SDV IVPUSH SCH ×3 (05:45→20:29)
[2019-10-25] MEDS: Pantoprazole 40 MG Tab.CR PO SCH (05:47)
[2019-10-25] MEDS: oxyCODONE 5 MG Tab PO SCH ×3 (05:47→17:50)
[2019-10-25] MEDS: Albuterol/Ipratropium 3.0-0.5 MG/3 ML Neb Soln NEB SCH ×5 (07:42→20:47)
[2019-10-25] MEDS: Budesonide 0.5 MG/2 ML Neb Susp NEB SCH ×3 (07:42→17:54)
[2019-10-25 08:20] LABS: ANION GAP 15.3
[2019-10-25] MEDS: Carvedilol 25 MG Tab PO SCH ×2 (08:48→17:50)
[2019-10-25] MEDS: Isosorbide Mononitrate 30 MG Tab.ER PO SCH (08:48)
[2019-10-25] MEDS: Aspirin 325 MG Tab.EC PO SCH (08:49)
[2019-10-25] MEDS: Furosemide 40 MG/4 ML VIAL IVPUSH SCH ×2 (08:49→20:35)
[2019-10-25] MEDS: Oseltamivir 30 MG Cap PO SCH ×2 (08:49→20:53)
--- NOTE | 2019-10-25 11:22 | PN ---
DATE: 10/25/2019 SUBJECTIVE: Mr. Reyes Meeks is a 59-year-old male with a medical history significant for hypertension, hyperlipidemia, rheumatoid arthritis, deep venous thrombosis in the past, nonischemic cardiomyopathy, lower extremity ulcer, chronic tobacco use in the past, admitted with increasing shortness of breath. Noted to have influenza A positive along with bilateral pneumonia with COPD exacerbation and acute on chronic congestive heart failure exacerbation. For the last 24 hours, he was continued on IV antibiotics and nebulizer treatment and Lasix after which his symptoms seems to be improved this morning. He denies any ongoing chest pains. Complains of shortness of breath, 3/10 in intensity, aggravated on ambulation, relieved with rest, not associated with any nausea or vomiting. Denies any abdominal pain. No diarrhea. REVIEW OF SYSTEMS: Cardiovascular, respiratory, gastrointestinal, neurology, constitutional were all evaluated. PHYSICAL EXAMINATION: Vital Signs: Temperature of 98.1, pulse of 70, blood pressure of 142/51, respiratory rate of 22, saturating at 94% on 3 L of oxygen. General Appearance: The patient is well oriented to time, place, and person. Follows commands spontaneously. Cardiovascular System: S1 and S2 heard with normal intensity. No gallops. Respiratory System: Bilateral wheeze noted. Mild crepitations at the bases. Abdomen: Soft. Bowel sounds positive. Nontender. No rigidity. Extremities: Mild edema noted in bilateral lower extremities, more so to the right lower extremity, also noted to the right lower extremity. No active drainage noted at this time. LABORATORY DATA: WBC 7.6, hemoglobin 10.8, hematocrit 34.7, platelet count 259. Sodium 138, potassium 4.3, chloride 96, bicarb 31, BUN 42, creatinine 1.6, and lactic acid 1. Microbiology: Sputum culture pending. Influenza A positive. MEDICATIONS: Reviewed. Continue with DuoNeb and Pulmicort nebulizer. Continue ceftriaxone and Zithromax. Continue the Lasix 60 mg IV q.12 hourly, heparin for DVT prophylaxis, Tamiflu for influenza A. ASSESSMENT: 1. Influenza A positive. 2. Bilateral pneumonia. 3. Acute chronic obstructive pulmonary disease exacerbation. 4. Acute on chronic congestive heart failure with systolic and diastolic dysfunction. 5. Acute hypoxic respiratory failure. 6. Hypertension. 7. Hyperlipidemia. 8. History of nonischemic cardiomyopathy, status post AICD placed. 9. Chronic venous stasis ulcer to the right lower extremity. 10.History of deep venous thrombosis in the past. 11.Rheumatoid arthritis on chronic immunosuppressive therapy. 12.Chronic kidney disease. PLAN: 1. Influenza A: The patient is started on Tamiflu. Continue the same. Dose adjusted for renal function. 2. Pneumonia. The patient noted to have bilateral pneumonia on the chest x- ray with infiltrates. He is started on IV ceftriaxone and Zithromax. Await for sputum culture and blood culture and titrate the antibiotics. 3. Acute chronic obstructive pulmonary disease exacerbation. The patient is started on nebulizer treatment with DuoNeb and Pulmicort nebulizer. We will start him on IV methylprednisone. Continue the same. The patient will be encouraged to use incentive spirometer and flutter valve for better pulmonary toileting. 4. Acute on chronic congestive heart failure. The patient is started on IV Lasix 60 twice a day. Continue the same. He is noted to have both systolic and diastolic dysfunction with poor ejection fraction of 30%. 5. Chronic venous stasis ulcer. Wound Care to follow. Continue with daily dressing changes. 6. History of DVT. The patient will be started on heparin for DVT prophylaxis. Order for ultrasound Doppler of the lower extremity to rule out any acute DVT as his right lower extremity is more swollen than the left. 7. Acute hypoxic respiratory failure. Continue with supplemental oxygen to maintain a saturation of 95%. [facility] /[id number]
--- NOTE | 2019-10-25 13:48 | US ---
EXAMINATION: Venous Doppler Lw Ext Rt SEX: Male AGE: 59 years CLINICAL HISTORY: 59-year-old obese male at bed rest with right leg redness/swelling and difficulty breathing Interpretation: Angle lymph node right groin. No sign of intraluminal echogenic thrombus and normal compressibility deep veins of the right groin, thigh and knee. Spontaneous and phasic blood flow in the peroneal/posterior tibial veins of the right calf and satisfactory augmentation and venous waveforms demonstrated respectively in the popliteal vein behind the right knee and possibly in the femoral veins right lower extremity. No popliteal or Nam's cyst identified behind the right knee. No popliteal artery aneurysm evident. CONCLUSION: No new evidence DVT right lower extremity (previous exam 03 August 2019). Inguinal lymphadenopathy.
[2019-10-25] MEDS: cefTRIAXone 1 GM in Sodium Chloride 0.9% 50 ML IV SCH (17:52)
[2019-10-25] MEDS: Azithromycin 500 MG in Sodium Chloride 0.9% 250 ML IV SCH (20:42)
[2019-10-25] MEDS: atorvaSTATin 20 MG Tab PO SCH (20:47)
[2019-10-26] MEDS: oxyCODONE 5 MG Tab PO SCH ×5 (01:56→23:46)
[2019-10-26] MEDS: methylPREDNISolone Sodium Succinate 40 MG/1 ML SDV IVPUSH SCH ×3 (04:06→21:49)
[2019-10-26] MEDS: Pantoprazole 40 MG Tab.CR PO SCH (05:59)
[2019-10-26] MEDS: Heparin Sodium 5,000 Units/ML Vial SUBCUT SCH ×3 (06:08→21:53)
[2019-10-26 07:02] LABS: ANION GAP 15.8
[2019-10-26] MEDS: Budesonide 0.5 MG/2 ML Neb Susp NEB SCH ×3 (07:28→18:08)
[2019-10-26] MEDS: Albuterol/Ipratropium 3.0-0.5 MG/3 ML Neb Soln NEB SCH ×4 (07:28→22:11)
[2019-10-26] MEDS: Aspirin 325 MG Tab.EC PO SCH (09:35)
[2019-10-26] MEDS: Isosorbide Mononitrate 30 MG Tab.ER PO SCH (09:35)
[2019-10-26] MEDS: Carvedilol 25 MG Tab PO SCH ×2 (09:35→17:45)
[2019-10-26] MEDS: Oseltamivir 30 MG Cap PO SCH ×2 (09:36→21:52)
[2019-10-26] MEDS: Furosemide 40 MG/4 ML VIAL IVPUSH SCH (09:36)
--- NOTE | 2019-10-26 13:48 | PN ---
DATE: 10/26/2019 SUBJECTIVE: Mr. Reyes Meeks is a 59-year-old male with medical history significant for hypertension, hyperlipidemia, rheumatoid arthritis, deep venous thrombosis in the past, nonischemic cardiomyopathy, lower extremity ulcer, chronic, admitted with increasing shortness of breath, noted to have influenza A positive along with a bilateral pneumonia leading to COPD exacerbation and CHF exacerbation. For the last 24 hours, he is continued on nebulizer, steroids, and Lasix therapy. His shortness of breath has slightly improved but continues to have dyspnea on exertion. Denies any chest pain. No abdominal pain. No nausea. No vomiting. No diarrhea. REVIEW OF SYSTEMS: Cardiovascular, respiratory, gastrointestinal, neurology, constitutional were all evaluated. PHYSICAL EXAMINATION: Vital Signs: Temperature of 97.7, pulse of 100, blood pressure 176/76, respiratory rate of 20, saturating at 94% on 5.5 L of oxygen. General Appearance: The patient is well oriented to time, place, and person. Follows commands spontaneously. Cardiovascular System: S1, S2 heard with normal intensity. No gallops. Respiratory System: Bilateral wheeze noted. Mild crepitations at the bases. Abdomen: Soft. Bowel sounds positive. Nontender. No rigidity. Extremities: Mild edema noted in bilateral lower extremity. Ulcer noted on the right lower extremity. LABORATORY DATA: WBC 8.7, hemoglobin 10.8, hematocrit 34.5, platelet count 319. Sodium 136, potassium 3.8, chloride 92, bicarb 32, BUN 55, creatinine 1.8, glucose 197. ASSESSMENT: 1. Influenza A positive. 2. Bilateral pneumonia. 3. Acute on chronic congestive heart failure with systolic and diastolic dysfunction. 4. Acute chronic obstructive pulmonary disease exacerbation. 5. Acute hypoxic respiratory failure. 6. Hypertension. 7. Hyperlipidemia. 8. History of nonischemic cardiomyopathy, status post automatic implantable cardioverter defibrillator placed. 9. Chronic venous stasis ulcer to the right lower extremity. 10.History of deep venous thrombosis in the past. 11.Rheumatoid arthritis. 12.Chronic kidney disease. PLAN: 1. Influenza A. The patient is currently on Tamiflu, continue the same. Dose adjust for renal function at 30 mg twice a day. 2. Pneumonia. The patient noted to have bilateral pneumonia, he is currently on IV antibiotic of ceftriaxone and Zithromax, so for cultures remained negative. 3. Acute on chronic congestive heart failure with systolic and diastolic dysfunction. The patient noted to have poor ejection fraction of 33%. He was treated with IV Lasix, but his creatinine seems to be trending up, so we will switch him to oral Lasix at this time 40 mg twice a day. Closely monitor input, output, and daily weight. Try to maintain euvolemic status. 4. Acute COPD exacerbation. The patient is currently on nebulizer treatment and IV methylprednisone, currently on DuoNeb and Pulmicort nebulizer. We will decrease the steroids to 60 mg IV q.8 hourly. 5. Acute hypoxic respiratory failure. The patient continued on nasal cannula oxygen. I encouraged the patient to use incentive spirometer and flutter valve for better pulmonary toileting. 6. History of DVT. Continue with DVT prophylaxis. Ultrasound Doppler did not show any evidence for DVT on this admission. [facility] /[id number]
[2019-10-26] MEDS: Furosemide 40 MG Tab PO SCH (14:31)
[2019-10-26] MEDS: cefTRIAXone 1 GM in Sodium Chloride 0.9% 50 ML IV SCH (17:47)
[2019-10-26] MEDS: Azithromycin 500 MG in Sodium Chloride 0.9% 250 ML IV SCH (19:28)
[2019-10-26] MEDS ORDERED: SODIUM HYPOCHLORITE TOP SCH (21:00)
[2019-10-26] MEDS: Sodium Chloride 0.9% 10 ML Syringe FLUSH PRN (21:49)
[2019-10-26] MEDS: atorvaSTATin 20 MG Tab PO SCH (21:52)
[2019-10-27] MEDS: oxyCODONE 5 MG Tab PO SCH ×3 (05:59→18:56)
[2019-10-27] MEDS: Pantoprazole 40 MG Tab.CR PO SCH (05:59)
[2019-10-27] MEDS: Sodium Chloride 0.9% 10 ML Syringe FLUSH PRN ×3 (06:01→18:57)
[2019-10-27] MEDS: methylPREDNISolone Sodium Succinate 40 MG/1 ML SDV IVPUSH SCH ×3 (06:01→21:03)
[2019-10-27] MEDS: Heparin Sodium 5,000 Units/ML Vial SUBCUT SCH ×2 (06:04→14:05)
[2019-10-27] MEDS: Budesonide 0.5 MG/2 ML Neb Susp NEB SCH ×3 (07:19→17:03)
[2019-10-27] MEDS: Albuterol/Ipratropium 3.0-0.5 MG/3 ML Neb Soln NEB SCH ×4 (07:20→21:03)
[2019-10-27] MEDS: DAKIN S TOP SCH ×2 (10:00→21:03)
[2019-10-27] MEDS: Furosemide 40 MG Tab PO SCH (10:07)
[2019-10-27] MEDS: Carvedilol 25 MG Tab PO SCH ×2 (10:07→18:55)
[2019-10-27] MEDS: Oseltamivir 30 MG Cap PO SCH ×2 (10:07→21:03)
[2019-10-27] MEDS: Aspirin 325 MG Tab.EC PO SCH (10:08)
[2019-10-27] MEDS: Isosorbide Mononitrate 30 MG Tab.ER PO SCH (10:08)
[2019-10-27 10:46] LABS: ANION GAP 15.7
--- NOTE | 2019-10-27 13:02 | PN ---
DATE: 10/27/2019 SUBJECTIVE: Mr. Reyes Meeks is a 59-year-old male with a medical history significant for hypertension, hyperlipidemia, rheumatoid arthritis, deep venous thrombosis in the past, nonischemic cardiomyopathy, lower extremity ulcer which is chronic in nature, admitted with increasing shortness of breath, noted to have influenza A positive along with bilateral pneumonia leading to COPD exacerbation and CHF exacerbation. For the last 24 hours, the patient continues to have wheeze and shortness of breath aggravated on exertion, relieved with rest. Continues to be on nebulizer treatment, IV methylprednisone, and antibiotics. He denies any ongoing chest pain. No abdominal pain. No nausea. No vomiting. No diarrhea. REVIEW OF SYSTEMS: Cardiovascular, respiratory, gastrointestinal, neurology, constitutional were all evaluated. PHYSICAL EXAMINATION: Vital Signs: Temperature of 97.4, pulse of 55, blood pressure 167/77, respiratory rate of 20, saturating at 90% on 1 L of oxygen. General Appearance: The patient is well oriented to time, place, and person. Follows commands spontaneously. Cardiovascular System: S1, S2 heard with normal intensity. No gallops. Respiratory System: Bilateral wheeze noted. Mild crepitations at the base. Abdomen: Soft. Bowel sounds positive. Nontender. No rigidity. Extremities: Edema noted in bilateral lower extremities. Chronic ulcer noted to the right lower extremity. MEDICATIONS: Reviewed. Continue DuoNeb and Pulmicort nebulizer, continue with IV methylprednisone, continue with ceftriaxone and Zithromax continue with Coreg and Imdur. Continue with Tamiflu. LABORATORY DATA: Reviewed. WBC 12.1, hemoglobin 10.8, hematocrit 33.7. Sodium 134, potassium 3.7, chloride 91, bicarb 31, BUN 66, creatinine 1.9, and glucose 208. ASSESSMENT: 1. Influenza A-positive. 2. Bilateral pneumonia. 3. Acute on chronic congestive heart failure with systolic dysfunction. 4. Acute on chronic obstructive pulmonary disease exacerbation. 5. Acute hypoxic respiratory failure. 6. Hypertension. 7. Hyperlipidemia. 8. History of nonischemic cardiomyopathy, status post AICD placed. 9. Chronic venous stasis ulcer to the right lower extremity. 10.Rheumatoid arthritis. PLAN: 1. Influenza A. the patient is currently on Tamiflu. Continue with Tamiflu for a total of 5 days. 2. Pneumonia. The patient is currently on IV antibiotics of ceftriaxone and Zithromax. Continues to have wheeze. We will obtain a chest x-ray today. 3. Chronic obstructive pulmonary disease exacerbation. Continues to have wheeze. We will continue with nebulizer treatment, DuoNeb and Pulmicort, and also IV methylprednisone. Encourage the patient to use incentive spirometer and flutter valve. 4. Acute hypoxic respiratory failure. Continue with supplemental oxygen to maintain a saturation of 95%. 5. Acute on chronic congestive heart failure with systolic dysfunction. The patient noted to have gaining weight. We will further dose adjust the Lasix. He is on 60 mg. One might consider switching him to Bumex, and we will closely follow. 6. History of deep venous thrombosis. Continue DVT prophylaxis. 7. Chronic venous stasis ulcer. Continue with wound cares, remains stable for now. [facility] /[id number]
[2019-10-27] MEDS: Bumetanide 1 MG Tab PO SCH (14:32)
[2019-10-27] MEDS: cefTRIAXone 1 GM in Sodium Chloride 0.9% 50 ML IV SCH (18:54)
[2019-10-27] MEDS: Azithromycin 500 MG in Sodium Chloride 0.9% 250 ML IV SCH (21:02)
[2019-10-27] MEDS: atorvaSTATin 20 MG Tab PO SCH (21:03)
[2019-10-28] MEDS: oxyCODONE 5 MG Tab PO SCH ×4 (00:41→17:51)
[2019-10-28] MEDS: Pantoprazole 40 MG Tab.CR PO SCH (06:05)
[2019-10-28] MEDS: methylPREDNISolone Sodium Succinate 40 MG/1 ML SDV IVPUSH SCH (06:05)
[2019-10-28 07:02] LABS: ANION GAP 16.2
[2019-10-28] MEDS: Budesonide 0.5 MG/2 ML Neb Susp NEB SCH ×3 (07:07→17:50)
[2019-10-28] MEDS: Albuterol/Ipratropium 3.0-0.5 MG/3 ML Neb Soln NEB SCH ×4 (07:07→22:17)
[2019-10-28] MEDS: Bumetanide 1 MG Tab PO SCH ×2 (08:45→13:46)
[2019-10-28] MEDS: Aspirin 325 MG Tab.EC PO SCH (08:46)
[2019-10-28] MEDS: Oseltamivir 30 MG Cap PO SCH ×2 (08:46→22:17)
[2019-10-28] MEDS: Isosorbide Mononitrate 30 MG Tab.ER PO SCH (08:46)
[2019-10-28] MEDS: Carvedilol 25 MG Tab PO SCH ×2 (08:47→17:51)
[2019-10-28] MEDS: DAKIN S TOP SCH ×2 (08:48→22:18)
[2019-10-28] MEDS: Potassium Chloride 10 MEQ Tab.ER PO SCH ×2 (12:43→17:50)
--- NOTE | 2019-10-28 13:13 | PN ---
DATE: 10/28/2019 HISTORY OF PRESENT ILLNESS: Mr. Reyes Meeks is a 59-year-old male with medical history significant for hypertension, hyperlipidemia, rheumatoid arthritis, deep venous thrombosis in the past, nonischemic cardiomyopathy, lower extremity ulcer. Admitted with increasing shortness of breath and noted to have influenza A positive along with bilateral pneumonia leading to acute COPD exacerbation and acute CHF exacerbation. For the last 24 hours, the patient continued on nasal cannula oxygen. Continues to have mild cough and also mild shortness of breath, aggravated on exertion, relieved with rest. Denies any chest pain. No abdominal pain. No nausea. No vomiting. No diarrhea. REVIEW OF SYSTEMS: Cardiovascular, respiratory, gastrointestinal, neurology, constitutional were all evaluated. PHYSICAL EXAMINATION: Vital Signs: Temperature of 97.2, pulse of 71, blood pressure of 145/64, respiratory rate of 20, saturating at 91% on 2 to 3 L of oxygen. General Appearance: The patient is well oriented to time, place, and person. Follows commands spontaneously. Cardiovascular System: S1, S2 heard with normal intensity. No gallops. Respiratory System: Bilateral wheeze and crepitations at the base. Abdomen: Soft. Bowel sounds positive. Nontender. No rigidity. Extremities: Mild edema noted of bilateral lower extremity. Chronic venous stasis ulcer to the right lower extremity. MEDICATIONS: Reviewed. Continue with Tylenol 650 every 4 hours as needed for pain. Continue with DuoNeb and Pulmicort nebulizer. Bumex 2 mg daily. Continue with ceftriaxone and Zithromax. Coreg 25 mg. Imdur 30 mg. Potassium chloride 20 mEq 3 times a day. LABORATORY DATA: Sodium 134, potassium 3.2, chloride 91, bicarb 30, BUN 66, creatinine 1.7, glucose 288. ASSESSMENT: 1. Influenza A positive. 2. Bilateral pneumonia. 3. Acute on chronic congestive heart failure with systolic dysfunction. 4. Acute on chronic obstructive pulmonary disease exacerbation. 5. Acute hypoxic respiratory failure. 6. Hyperlipidemia. 7. Hypertension. 8. History of nonischemic cardiomyopathy. 9. Chronic venous stasis ulcer of the right lower extremity. 10.Rheumatoid arthritis. PLAN: 1. Influenza A positive. The patient has been on Tamiflu, continue the same. We will try to complete a 5-day course of treatment. 2. Pneumonia. The patient has been on ceftriaxone and Zithromax. So far cultures remained negative. Repeat chest x-ray shows mild improvement. Continue with the current antibiotics. 3. Acute COPD exacerbation. Continue with the nebulizer treatment. We will switch him to oral prednisone. The patient is encouraged to use incentive spirometer and flutter valve. 4. Acute respiratory failure. The patient was noted to be hypoxic. Continue the same. Try to maintain saturations around 95%. 5. Hypertension. The patient's blood pressure seems to be in acceptable range. Continue with current antihypertensive medication. 6. Acute on chronic congestive heart failure with systolic dysfunction. The patient is currently on Bumex. He was not diuresing well on Lasix, so we switched him to Bumex after which he is noted to have good urine output. We will continue with Bumex for now. 7. Chronic venous stasis ulcer. Wound care to continue. 8. Hypokalemia. We will replace with oral potassium chloride. Recheck a basic metabolic panel in the a.m. [facility] /[id number]
[2019-10-28] MEDS: cefTRIAXone 1 GM in Sodium Chloride 0.9% 50 ML IV SCH ×2 (17:52→19:20)
[2019-10-28] MEDS: Sodium Chloride 0.9% 10 ML Syringe FLUSH PRN (17:53)
[2019-10-28] MEDS: Azithromycin 500 MG in Sodium Chloride 0.9% 250 ML IV SCH (20:10)
[2019-10-28] MEDS: atorvaSTATin 20 MG Tab PO SCH (22:17)
[2019-10-29] MEDS: oxyCODONE 5 MG Tab PO SCH ×5 (00:47→23:50)
[2019-10-29] MEDS: Pantoprazole 40 MG Tab.CR PO SCH (06:07)
[2019-10-29] MEDS: Albuterol/Ipratropium 3.0-0.5 MG/3 ML Neb Soln NEB SCH ×4 (07:09→22:08)
[2019-10-29] MEDS: Budesonide 0.5 MG/2 ML Neb Susp NEB SCH ×2 (07:09→17:05)
[2019-10-29] MEDS: Oseltamivir 30 MG Cap PO SCH (08:37)
[2019-10-29] MEDS: Isosorbide Mononitrate 30 MG Tab.ER PO SCH (08:37)
[2019-10-29] MEDS: Aspirin 325 MG Tab.EC PO SCH (08:37)
[2019-10-29] MEDS: Carvedilol 25 MG Tab PO SCH ×2 (08:37→17:00)
[2019-10-29] MEDS: predniSONE 20 MG Tab PO SCH (08:38)
[2019-10-29] MEDS: Potassium Chloride 10 MEQ Tab.ER PO SCH ×3 (08:38→17:00)
[2019-10-29] MEDS: DAKIN S TOP SCH ×2 (08:40→22:11)
[2019-10-29] MEDS ORDERED: Potassium Chloride 10 MEQ Tab.ER PO ONE (10:06)
--- NOTE | 2019-10-29 11:05 | PCM.PN ---
- General Info Date of Service: 10/29/19 Admission Dx/Problem (Free Text): Influenza A, Acute COPD exacerbation, and acute CHF exacerbation Subjective Update: No acute events overnight. Patient reports that he is doing okay. Reports that he has cough with thick chronic sputum production. States that he is able to ambulate to the bathroom but has not ambulated in the hallways. Lower extremities continue to be swollen. Denies fevers, chills, nausea, vomiting, diarrhea, constipation, dysuria, hematuria, chest pain, or any new symptoms. Cultures came back positive for MRSA. - Patient Data Vitals - Most Recent: Last Vital Signs Temp 97.8 F 10/29/19 08:19 Pulse 63 10/29/19 08:37 Resp 20 10/29/19 08:19 BP 166/82 H 10/29/19 08:37 Pulse Ox 93 L 10/29/19 08:19 Weight - Most Recent: 242 lb 1 oz I&O - Last 24 Hours: Intake & Output 10/28/19 10/29/19 10/29/19 22:59 06:59 14:59 Intake Total 300 801 Output Total 1750 Balance 300 -949 Ahsan Results Last 24 Hours: Microbiology 10/24/19 18:31 Aerobic Blood Culture - Preliminary Blood NO GROWTH AFTER 4 DAYS Anaerobic Blood Culture - Preliminary NO GROWTH AFTER 4 DAYS 10/24/19 17:28 Aerobic Blood Culture - Preliminary Blood NO GROWTH AFTER 4 DAYS Anaerobic Blood Culture - Preliminary NO GROWTH AFTER 4 DAYS 10/24/19 17:38 Gram Stain - Final Sputum - Expectorated Sputum Culture - Final Staphylococcus Aureus Med Orders - Current: Current Medications Acetaminophen (Tylenol) 650 mg PO Q4H PRN PRN Reason: Pain (Mild 1-3)/fever Albuterol/Ipratropium (Duoneb 3.0-0.5 Mg/3 Ml) 3 ml NEB QIDRT [facility] Last Admin: 10/29/19 07:09 Dose: 3 ml Aspirin (Ecotrin) 325 mg PO DAILY [facility] Last Admin: 10/29/19 08:37 Dose: 325 mg Atorvastatin Calcium (Lipitor) 40 mg PO BEDTIME [facility] Last Admin: 10/28/19 22:17 Dose: 40 mg Budesonide (Pulmicort) 0.5 mg NEB BIDRT [facility] Last Admin: 10/29/19 07:09 Dose: 0.5 mg Bumetanide (Bumex) 2 mg PO BIDDIURETIC [facility] Last Admin: 10/28/19 13:46 Dose: 2 mg Carvedilol (Coreg) 25 mg PO BIDMEALS [facility] Last Admin: 10/29/19 08:37 Dose: 25 mg Docusate Sodium (Colace) 100 mg PO BID PRN PRN Reason: Constipation Last Admin: 10/28/19 06:05 Dose: 100 mg Isosorbide Mononitrate (Imdur) 30 mg PO DAILY [facility] Last Admin: 10/29/19 08:37 Dose: 30 mg Magnesium Hydroxide (Milk Of Magnesia) 30 ml PO Q12H PRN PRN Reason: Constipation Dakin's Solution 1/2 (Strength) 1 each TOP BID [facility] Last Admin: 10/29/19 08:40 Dose: 1 each Ondansetron HCl (Zofran Odt) 8 mg PO Q8H PRN PRN Reason: Nausea Oxycodone HCl (Oxycodone) 5 mg PO Q6HR [facility] Last Admin: 10/29/19 06:07 Dose: 5 mg Pantoprazole Sodium (Protonix) 40 mg PO ACBREAKFAST [facility] Last Admin: 10/29/19 06:07 Dose: 40 mg Potassium Chloride (Klor-Con 10) 20 meq PO TIDMEALS [facility] Last Admin: 10/29/19 08:38 Dose: 20 meq Prednisone (Prednisone) 40 mg PO WITHBREAKFAST [facility] Last Admin: 10/29/19 08:38 Dose: 40 mg Sodium Chloride (Saline Flush) 10 ml FLUSH ASDIRECTED PRN PRN Reason: IV Use Last Admin: 10/28/19 17:53 Dose: 10 ml Vancomycin HCl (Pharmacy To Dose - Vancomycin) 1 dose .XX ASDIRECTED [facility] Discontinued Medications Albuterol/Ipratropium (Duoneb 3.0-0.5 Mg/3 Ml) 3 ml NEB ONETIME ONE Stop: 10/24/19 17:08 Last Admin: 10/24/19 17:23 Dose: 3 ml Albuterol/Ipratropium (Duoneb 3.0-0.5 Mg/3 Ml) 3 ml NEB QID [facility] Last Admin: 10/26/19 11:14 Dose: Not Given Furosemide (Lasix) 60 mg IVPUSH BID [facility] Last Admin: 10/26/19 09:36 Dose: 60 mg Furosemide (Lasix) 40 mg PO BIDDIURETIC [facility] Last Admin: 10/27/19 10:07 Dose: 40 mg Heparin Sodium (Porcine) (Heparin Sodium) 5,000 units SUBCUT Q8HR [facility] Last Admin: 10/27/19 14:05 Dose: Not Given Ceftriaxone Sodium 1 gm/ (Sodium Chloride) 50 mls @ 100 mls/hr IV ONETIME ONE Stop: 10/24/19 19:37 Last Admin: 10/24/19 19:36 Dose: 100 mls/hr Azithromycin 500 mg/ Sodium (Chloride) 250 mls @ 250 mls/hr IV DAILY@2000 [facility] Last Admin: 10/28/19 20:10 Dose: 150 mls/hr Ceftriaxone Sodium 1 gm/ (Sodium Chloride) 50 mls @ 100 mls/hr IV DAILY@1800 [facility] Last Admin: 10/28/19 19:20 Dose: 100 mls/hr Methylprednisolone Sodium Succinate (Solu-Medrol) 80 mg IVPUSH Q8H [facility] Last Admin: 10/26/19 04:06 Dose: 80 mg Methylprednisolone Sodium Succinate (Solu-Medrol) 60 mg IVPUSH Q8HR [facility] Last Admin: 10/28/19 06:05 Dose: 60 mg Dakin's Solution (Half Strength) 0 each TOP TID [facility] Oseltamivir Phosphate (Tamiflu) 75 mg PO BID [facility] Last Admin: 10/25/19 06:53 Dose: Not Given Oseltamivir Phosphate (Tamiflu) 30 mg PO BID [facility] Stop: 10/29/19 09:01 Last Admin: 10/29/19 08:37 Dose: 30 mg Potassium Chloride (Klor-Con 10) 40 meq PO ONETIME ONE Stop: 10/29/19 10:07 - Exam General: Alert, Oriented, Cooperative HEENT: Pupils Equal, Pupils Reactive, Mucous Membr. Moist/[place] Neck: Supple Lungs: Rhonchi, Wheezing Cardiovascular: Regular Rate, Regular Rhythm GI/Abdominal Exam: Normal Bowel Sounds, Soft, Non-Tender, No Distention Extremities: Pedal Edema, Other (Right venous stasis ulcer and bilateral venous stasis hyperpigmentation. ) Peripheral Pulses: 2+: Radial (L), Radial (R), Dorsalis Pedis (L), Dorsalis Pedis (R) Skin: Warm, Dry Neurological: No New Focal Deficit Psy/Mental Status: Alert, Normal Affect Sepsis Event Note - Evaluation Sepsis Screening Result: No Definite Risk - Focused Exam Vital Signs: Vital Signs Temp Pulse Pulse Resp BP BP Pulse Ox 10/29/19 08:37 63 166/82 H 10/29/19 08:19 97.8 F 63 20 166/82 H 93 L 10/29/19 07:10 66 10/29/19 00:00 97.5 F 63 20 152/70 H 91 L Date Exam was Performed: 10/29/19 Time Exam was Performed: 10:55 - Problem List & Annotations (1) Hypokalemia SNOMED Code(s): 83964411 Code(s): E87.6 - HYPOKALEMIA Status: Acute Current Visit: Yes (2) Acute on chronic systolic heart failure SNOMED Code(s): 160934849 Code(s): I50.23 - ACUTE ON CHRONIC SYSTOLIC (CONGESTIVE) HEART FAILURE Status: Acute Current Visit: Yes (3) COPD with acute exacerbation SNOMED Code(s): 823004382 Code(s): J44.1 - CHRONIC OBSTRUCTIVE PULMONARY DISEASE W (ACUTE) EXACERBATION Status: Acute Current Visit: Yes (4) Influenza A SNOMED Code(s): 880074903 Code(s): J10.1 - FLU DUE TO OTH IDENT INFLUENZA VIRUS W OTH RESP MANIFEST Status: Acute Current Visit: Yes (5) Pneumonia SNOMED Code(s): 420659873 Code(s): J18.9 - PNEUMONIA, UNSPECIFIED ORGANISM Status: Acute Current Visit: Yes Qualifiers: Pneumonia type: due to unspecified organism Laterality: bilateral Lung location: unspecified part of lung Qualified Code(s): J18.9 - Pneumonia, unspecified organism - Problem List Review Problem List Initiated/Reviewed/Updated: Yes - My Orders Last 24 Hours: My Active Orders 10/29/19 10:07 BASIC METABOLIC PANEL,BMP [CHEM] Routine 10/29/19 10:09 CBC W/O DIFF,HEMOGRAM [HEME] Routine 10/29/19 11:00 Pharmacy to Dose - Vancomycin 1 dose .XX ASDIRECTED - Plan Plan:: #Post viral pneumonia: #MRSA pneumonia: Patient with cough, sputum production, and blood cultures positive for MRSA. Completed treatment for influenza A today. Discontinue azithromycin and Start vancomycin Continue incentive spirometer Supplemental oxygen, titrate to SPO2 of 88 to 92% #Acute COPD exacerbation: Patient continues to have cough with sputum production. Continue nebulized treatments. Continue prednisone Encourage I-S and flutter valve use #Acute respiratory failure with hypoxia: Supplemental oxygen, titrate to SPO2 of 88-92 due to history of COPD Courage incentive spirometer and flutter valve use #Acute on chronic systolic heart failure: Patient presented with worsening lower extremity edema in the context of progressive shortness of breath and respiratory failure. He was switched from Lasix to Bumex due to poor diuresis. Switch to IV Lasix due to shortage of Bumex Daily weights Strict I's and O's Low-sodium diet #Chronic venous stasis ulcer Continue wound care #Hypokalemia: Continue oral potassium replacement Monitor BMP DVT PPx: Lovenox GI PPx: Low Na diet Code status: Full code
[2019-10-29] MEDS: Enoxaparin 40 MG/0.4 ML Syringe SUBCUT SCH (11:28)
[2019-10-29] MEDS: Bumetanide 1 MG Tab PO SCH (11:43)
[2019-10-29 12:55] LABS: ANION GAP 15.5
[2019-10-29] MEDS: Furosemide 40 MG/4 ML VIAL IVPUSH SCH ×2 (13:32→22:08)
[2019-10-29] MEDS ORDERED: Bumetanide 1 MG Tab PO SCH (14:00)
[2019-10-29] MEDS ORDERED: Albuterol/Ipratropium 3.0-0.5 MG/3 ML Neb Soln ONE (17:00)
[2019-10-29] MEDS ORDERED: Furosemide 40 MG/4 ML VIAL IVPUSH SCH (21:00)
[2019-10-29] MEDS: Sodium Chloride 0.9% 10 ML Syringe FLUSH PRN (22:09)
[2019-10-29] MEDS: atorvaSTATin 20 MG Tab PO SCH (22:10)
[2019-10-30] MEDS: oxyCODONE 5 MG Tab PO SCH ×4 (06:27→23:54)
[2019-10-30] MEDS: Pantoprazole 40 MG Tab.CR PO SCH (06:27)
[2019-10-30 07:07] LABS: ANION GAP 14.5
[2019-10-30] MEDS: Albuterol/Ipratropium 3.0-0.5 MG/3 ML Neb Soln NEB SCH ×4 (07:44→21:47)
[2019-10-30] MEDS: Budesonide 0.5 MG/2 ML Neb Susp NEB SCH ×3 (07:44→17:38)
[2019-10-30] MEDS ORDERED: Phosphorus #1 250 MG Tab PO ONE (08:23)
[2019-10-30] MEDS: predniSONE 20 MG Tab PO SCH (09:33)
[2019-10-30] MEDS: Aspirin 325 MG Tab.EC PO SCH (09:33)
[2019-10-30] MEDS: Isosorbide Mononitrate 30 MG Tab.ER PO SCH (09:34)
[2019-10-30] MEDS: Carvedilol 25 MG Tab PO SCH ×2 (09:34→18:15)
[2019-10-30] MEDS: Potassium Chloride 10 MEQ Tab.ER PO SCH ×3 (09:34→18:14)
[2019-10-30] MEDS: Furosemide 40 MG/4 ML VIAL IVPUSH SCH ×2 (09:37→13:58)
[2019-10-30] MEDS: Enoxaparin 40 MG/0.4 ML Syringe SUBCUT SCH (09:37)
--- NOTE | 2019-10-30 09:51 | PCM.PN ---
- General Info Date of Service: 10/30/19 Admission Dx/Problem (Free Text): Influenza A, Acute COPD exacerbation, and acute CHF exacerbation Subjective Update: No acute events overnight. Patient reports that he is doing okay. Reports that he has still has cough sputum production that is improving. Lower extremities continue to be swollen but improving. Denies fevers, chills, nausea , vomiting, diarrhea, constipation, dysuria, hematuria, chest pain, or any new symptoms. - Review of Systems General: Reports: No Symptoms HEENT: Reports: No Symptoms Pulmonary: Reports: Cough, Sputum, Wheezing Cardiovascular: Reports: No Symptoms Gastrointestinal: Reports: No Symptoms Genitourinary: Reports: No Symptoms Musculoskeletal: Reports: Other (BLE edema and chronic venous stasis ulcers.) Neurological: Reports: No Symptoms Psychiatric: Reports: No Symptoms - Patient Data Vitals - Most Recent: Last Vital Signs Temp 98.0 F 10/30/19 08:07 Pulse 85 10/30/19 09:34 Resp 20 10/30/19 08:07 BP 130/74 10/30/19 09:34 Pulse Ox 94 L 10/30/19 08:07 Weight - Most Recent: 239 lb 9 oz I&O - Last 24 Hours: Intake & Output 10/29/19 10/30/19 10/30/19 22:59 06:59 14:59 Intake Total 250 175 Output Total 900 1100 300 Balance -900 -850 -125 Lab Results Last 24 Hours: Laboratory Results - last 24 hr 10/29/19 10/29/19 10/30/19 Range/Units 12:20 12:20 06:15 WBC 18.0 H 14.5 H (5.0-10.0) 10^3/uL RBC 4.27 L 4.37 L (4.6-6.2) 10^6/uL Hgb 11.5 L 11.8 L (14.0-18.0) g/dL Hct 35.4 L 36.7 L (40.0-54.0) % MCV 82.9 84.0 (80-100) fL MCH 26.9 L 27.0 (27.0-34.0) pg MCHC 32.5 L 32.2 L (33.0-35.0) g/dL Plt Count 285 271 (150-450) 10^3/uL Sodium 137 (135-145) mmol/L Potassium 4.5 (3.6-5.0) mmol/L Chloride 91 L (101-111) mmol/L Carbon Dioxide 35.0 H (21.0-31.0) mmol/L Anion Gap 15.5 BUN 62 H (7-18) mg/dL Creatinine 1.6 H (0.6-1.3) mg/dL Est Cr Clr Drug Dosing 46.91 mL/min Estimated GFR (MDRD) 44 Glucose 149 H (74-105) mg/dL Calcium 8.1 L (8.4-10.2) mg/dl Phosphorus (2.5-4.6) mg/dL Magnesium (1.8-2.5) mg/dL 10/30/19 Range/Units 06:15 WBC (5.0-10.0) 10^3/uL RBC (4.6-6.2) 10^6/uL Hgb (14.0-18.0) g/dL Hct (40.0-54.0) % MCV (80-100) fL MCH (27.0-34.0) pg MCHC (33.0-35.0) g/dL Plt Count (150-450) 10^3/uL Sodium 139 (135-145) mmol/L Potassium 4.5 (3.6-5.0) mmol/L Chloride 95 L (101-111) mmol/L Carbon Dioxide 34.0 H (21.0-31.0) mmol/L Anion Gap 14.5 BUN 58 H (7-18) mg/dL Creatinine 1.4 H (0.6-1.3) mg/dL Est Cr Clr Drug Dosing 53.61 mL/min Estimated GFR (MDRD) 52 Glucose 183 H (74-105) mg/dL Calcium 8.4 (8.4-10.2) mg/dl Phosphorus 2.0 L (2.5-4.6) mg/dL Magnesium 1.5 L (1.8-2.5) mg/dL Ahsan Results Last 24 Hours: Microbiology 10/24/19 18:31 Aerobic Blood Culture - Final Blood NO GROWTH AFTER 5 DAYS Anaerobic Blood Culture - Final NO GROWTH AFTER 5 DAYS 10/24/19 17:28 Aerobic Blood Culture - Final Blood NO GROWTH AFTER 5 DAYS Anaerobic Blood Culture - Final NO GROWTH AFTER 5 DAYS Med Orders - Current: Current Medications Acetaminophen (Tylenol) 650 mg PO Q4H PRN PRN Reason: Pain (Mild 1-3)/fever Albuterol/Ipratropium (Duoneb 3.0-0.5 Mg/3 Ml) 3 ml NEB QIDRT [facility] Last Admin: 10/30/19 07:44 Dose: 3 ml Aspirin (Ecotrin) 325 mg PO DAILY [facility] Last Admin: 10/30/19 09:33 Dose: 325 mg Atorvastatin Calcium (Lipitor) 40 mg PO BEDTIME [facility] Last Admin: 10/29/19 22:10 Dose: 40 mg Budesonide (Pulmicort) 0.5 mg NEB BIDRT [facility] Last Admin: 10/30/19 07:44 Dose: 0.5 mg Bumetanide (Bumex) 2 mg PO BIDDIURETIC [facility] Carvedilol (Coreg) 25 mg PO BIDMEALS [facility] Last Admin: 10/30/19 09:34 Dose: 25 mg Docusate Sodium (Colace) 100 mg PO BID PRN PRN Reason: Constipation Last Admin: 10/28/19 06:05 Dose: 100 mg Enoxaparin Sodium (Lovenox) 40 mg SUBCUT DAILY [facility] Last Admin: 10/30/19 09:37 Dose: 40 mg Furosemide (Lasix) 40 mg IVPUSH BID [facility] Last Admin: 10/30/19 09:37 Dose: 40 mg Vancomycin HCl 1.5 gm/ Premix 300 mls @ 200 mls/hr IV Q24H [facility] Isosorbide Mononitrate (Imdur) 30 mg PO DAILY [facility] Last Admin: 10/30/19 09:34 Dose: 30 mg Magnesium Hydroxide (Milk Of Magnesia) 30 ml PO Q12H PRN PRN Reason: Constipation Metolazone (Zaroxolyn) 2.5 mg PO ONETIME ONE Stop: 10/30/19 20:31 Dakin's Solution 1/2 (Strength) 1 each TOP BID [facility] Last Admin: 10/29/19 22:11 Dose: 1 each Ondansetron HCl (Zofran Odt) 8 mg PO Q8H PRN PRN Reason: Nausea Oxycodone HCl (Oxycodone) 5 mg PO Q6HR [facility] Last Admin: 10/30/19 06:27 Dose: 5 mg Pantoprazole Sodium (Protonix) 40 mg PO ACBREAKFAST [facility] Last Admin: 10/30/19 06:27 Dose: 40 mg Potassium Chloride (Klor-Con 10) 20 meq PO TIDMEALS [facility] Last Admin: 10/30/19 09:34 Dose: 20 meq Prednisone (Prednisone) 40 mg PO WITHBREAKFAST [facility] Last Admin: 10/30/19 09:33 Dose: 40 mg Sodium Chloride (Saline Flush) 10 ml FLUSH ASDIRECTED PRN PRN Reason: IV Use Last Admin: 10/29/19 22:09 Dose: 10 ml Vancomycin HCl (Pharmacy To Dose - Vancomycin) 1 dose .XX ASDIRECTED [facility] Discontinued Medications Albuterol/Ipratropium (Duoneb 3.0-0.5 Mg/3 Ml) 3 ml NEB ONETIME ONE Stop: 10/24/19 17:08 Last Admin: 10/24/19 17:23 Dose: 3 ml Albuterol/Ipratropium (Duoneb 3.0-0.5 Mg/3 Ml) 3 ml NEB QID [facility] Last Admin: 10/26/19 11:14 Dose: Not Given Albuterol/Ipratropium (Duoneb 3.0-0.5 Mg/3 Ml) Confirm Administered Dose 3 ml .ROUTE .STK-MED ONE Stop: 10/29/19 17:01 Last Admin: 10/29/19 17:05 Dose: Not Given Bumetanide (Bumex) 2 mg PO BIDDIURETIC [facility] Last Admin: 10/29/19 11:43 Dose: Not Given Furosemide (Lasix) 60 mg IVPUSH BID [facility] Last Admin: 10/26/19 09:36 Dose: 60 mg Furosemide (Lasix) 40 mg PO BIDDIURETIC [facility] Last Admin: 10/27/19 10:07 Dose: 40 mg Furosemide (Lasix) 40 mg IVPUSH BID [facility] Heparin Sodium (Porcine) (Heparin Sodium) 5,000 units SUBCUT Q8HR [facility] Last Admin: 10/27/19 14:05 Dose: Not Given Ceftriaxone Sodium 1 gm/ (Sodium Chloride) 50 mls @ 100 mls/hr IV ONETIME ONE Stop: 10/24/19 19:37 Last Admin: 10/24/19 19:36 Dose: 100 mls/hr Azithromycin 500 mg/ Sodium (Chloride) 250 mls @ 250 mls/hr IV DAILY@1999 [facility] Last Admin: 10/28/19 20:10 Dose: 150 mls/hr Ceftriaxone Sodium 1 gm/ (Sodium Chloride) 50 mls @ 100 mls/hr IV DAILY@1800 [facility] Last Admin: 10/28/19 19:20 Dose: 100 mls/hr Vancomycin HCl 1,500 mg/ (Sodium Chloride) 500 mls @ 333.333 mls/hr IV Q24H [facility] Last Admin: 10/29/19 13:27 Dose: 333.333 mls/hr Magnesium Oxide (Magnesium Oxide) 500 mg PO NOW [facility] Stop: 10/30/19 08:24 Last Admin: 10/30/19 09:32 Dose: 500 mg Methylprednisolone Sodium Succinate (Solu-Medrol) 80 mg IVPUSH Q8H [facility] Last Admin: 10/26/19 04:06 Dose: 80 mg Methylprednisolone Sodium Succinate (Solu-Medrol) 60 mg IVPUSH Q8HR [facility] Last Admin: 10/28/19 06:05 Dose: 60 mg Dakin's Solution (Half Strength) 0 each TOP TID [facility] Oseltamivir Phosphate (Tamiflu) 75 mg PO BID [facility] Last Admin: 10/25/19 06:53 Dose: Not Given Oseltamivir Phosphate (Tamiflu) 30 mg PO BID [facility] Stop: 10/29/19 09:01 Last Admin: 10/29/19 08:37 Dose: 30 mg Potassium Chloride (Klor-Con 10) 40 meq PO ONETIME ONE Stop: 10/29/19 10:07 Last Admin: 10/29/19 11:29 Dose: 40 meq Sodium Phosphate (Neutra-Phos) 500 mg PO ONETIME ONE Stop: 10/30/19 08:24 Last Admin: 10/30/19 09:34 Dose: 500 mg - Exam General: Alert, Oriented HEENT: Pupils Equal, Pupils Reactive, Mucous Membr. Moist/[place] Neck: Supple Lungs: Rhonchi, Wheezing Cardiovascular: Regular Rate, Regular Rhythm, No Murmurs GI/Abdominal Exam: Normal Bowel Sounds, Soft, Non-Tender, No Distention Extremities: Other (Bilateral lower extremity edema with chronic venous stasis changes and right LE with stasis ulcers) Skin: Warm, Dry Neurological: No New Focal Deficit Psy/Mental Status: Alert, Normal Affect, Normal Mood Sepsis Event Note - Evaluation Sepsis Screening Result: No Definite Risk - Focused Exam Vital Signs: Vital Signs Temp Pulse Pulse Resp BP BP Pulse Ox 10/30/19 09:34 85 130/74 10/30/19 08:07 98.0 F 73 20 140/76 94 L 10/30/19 07:44 74 10/30/19 04:00 97.6 F 71 20 151/85 H 93 L 10/30/19 00:00 97.6 F 76 20 150/74 H 96 Pulse Ox 10/30/19 09:34 10/30/19 08:07 10/30/19 07:44 94 L 10/30/19 04:00 10/30/19 00:00 Date Exam was Performed: 10/30/19 Time Exam was Performed: 09:46 - Problem List & Annotations (1) Hypokalemia SNOMED Code(s): 12986569 Code(s): E87.6 - HYPOKALEMIA Status: Acute Current Visit: Yes (2) Acute on chronic systolic heart failure SNOMED Code(s): 042045462 Code(s): I50.23 - ACUTE ON CHRONIC SYSTOLIC (CONGESTIVE) HEART FAILURE Status: Acute Current Visit: Yes (3) COPD with acute exacerbation SNOMED Code(s): 682087906 Code(s): J44.1 - CHRONIC OBSTRUCTIVE PULMONARY DISEASE W (ACUTE) EXACERBATION Status: Acute Current Visit: Yes (4) Influenza A SNOMED Code(s): 982871230 Code(s): J10.1 - FLU DUE TO OTH IDENT INFLUENZA VIRUS W OTH RESP MANIFEST Status: Acute Current Visit: Yes (5) Pneumonia SNOMED Code(s): 687131267 Code(s): J18.9 - PNEUMONIA, UNSPECIFIED ORGANISM Status: Acute Current Visit: Yes Qualifiers: Pneumonia type: due to unspecified organism Laterality: bilateral Lung location: unspecified part of lung Qualified Code(s): J18.9 - Pneumonia, unspecified organism - Problem List Review Problem List Initiated/Reviewed/Updated: Yes - My Orders Last 24 Hours: My Active Orders 10/29/19 11:00 Pharmacy to Dose - Vancomycin 1 dose .XX ASDIRECTED 10/29/19 11:15 Enoxaparin [Lovenox] 40 mg SUBCUT DAILY 10/29/19 11:45 Furosemide [Lasix] 40 mg IVPUSH BID 10/30/19 12:00 VANCOmycin/Water for INJ (PEG) [VANCOmycin 1.5 GM/300 ML Premix] 1.5 gm Premix Bag 1 bag IV Q24H 10/30/19 20:30 metOLazone [Zaroxolyn] 2.5 mg PO ONETIME ONE - Plan Plan:: #Post viral pneumonia: #MRSA pneumonia: Patient with cough, sputum production, and blood cultures positive for MRSA. Completed treatment for influenza A today. -Continue vancomycin -Continue incentive spirometer -Supplemental oxygen, titrate to SPO2 of 88 to 92% #Acute COPD exacerbation: Patient continues to have cough with sputum production. -Continue nebulized treatments. -Continue prednisone -Encourage I-S and flutter valve use #Acute respiratory failure with hypoxia: -Supplemental oxygen, titrate to SPO2 of 88-92 due to history of COPD -Encourage incentive spirometer and flutter valve use #Acute on chronic systolic heart failure: Patient presented with worsening lower extremity edema in the context of progressive shortness of breath and respiratory failure. He was switched from Lasix to Bumex due to poor diuresis. -Continue IV Lasix -One time dose of metolazone before afternoon lasix -Daily weights -Strict I's and O's -Low-sodium diet #Chronic venous stasis ulcer -Continue wound care #Electrolyte imbalances: Patient with hypokalemia, hypophosphatemia, and hypomagnesemia. -Continue oral replacements. -Monitor and replace electrolytes. DVT PPx: Lovenox GI PPx: Low Na diet Code status: Full code
[2019-10-30] MEDS: DAKIN S TOP SCH ×2 (10:30→21:47)
[2019-10-30] MEDS ORDERED: Metolazone 2.5 MG Tab PO ONE ×2 (13:30→20:30)
[2019-10-30] MEDS ORDERED: Furosemide 40 MG/4 ML VIAL IVPUSH SCH (14:00)
[2019-10-30] MEDS: atorvaSTATin 20 MG Tab PO SCH (21:47)
[2019-10-31] MEDS: oxyCODONE 5 MG Tab PO SCH ×3 (05:57→17:22)
[2019-10-31] MEDS: Pantoprazole 40 MG Tab.CR PO SCH (05:57)
[2019-10-31 07:03] LABS: ANION GAP 13.5
[2019-10-31] MEDS: Albuterol/Ipratropium 3.0-0.5 MG/3 ML Neb Soln NEB SCH ×4 (07:52→22:10)
[2019-10-31] MEDS: Budesonide 0.5 MG/2 ML Neb Susp NEB SCH ×2 (07:52→17:02)
[2019-10-31] MEDS: Isosorbide Mononitrate 30 MG Tab.ER PO SCH (09:25)
[2019-10-31] MEDS: predniSONE 20 MG Tab PO SCH (09:26)
[2019-10-31] MEDS: Carvedilol 25 MG Tab PO SCH ×2 (09:26→17:21)
[2019-10-31] MEDS: Aspirin 325 MG Tab.EC PO SCH (09:26)
[2019-10-31] MEDS: Potassium Chloride 10 MEQ Tab.ER PO SCH ×3 (09:26→17:22)
[2019-10-31] MEDS: Enoxaparin 40 MG/0.4 ML Syringe SUBCUT SCH (09:27)
--- NOTE | 2019-10-31 10:58 | PCM.PN ---
- General Info Date of Service: 10/31/19 Admission Dx/Problem (Free Text): Influenza A, Acute COPD exacerbation, and acute CHF exacerbation Subjective Update: No acute events overnight. Patient reports that he is doing okay. Reports that cough is improved. Lower extremities continue to be swollen and did not improve much compared to yesterday. Denies fevers, chills, nausea, vomiting, diarrhea, constipation, dysuria, hematuria, chest pain, or any new symptoms. - Patient Data Vitals - Most Recent: Last Vital Signs Temp 97.9 F 10/31/19 08:04 Pulse 61 10/31/19 09:26 Resp 20 10/31/19 08:04 BP 179/85 H 10/31/19 09:26 Pulse Ox 98 10/31/19 08:04 Weight - Most Recent: 240 lb 4 oz I&O - Last 24 Hours: Intake & Output 10/30/19 10/31/19 10/31/19 22:59 06:59 14:59 Intake Total 618 100 300 Output Total 1400 200 400 Balance -782 -100 -100 Lab Results Last 24 Hours: Laboratory Results - last 24 hr 10/31/19 10/31/19 Range/Units 06:10 06:10 WBC 16.1 H (5.0-10.0) 10^3/uL RBC 4.12 L (4.6-6.2) 10^6/uL Hgb 11.0 L (14.0-18.0) g/dL Hct 34.8 L (40.0-54.0) % MCV 84.5 (80-100) fL MCH 26.7 L (27.0-34.0) pg MCHC 31.6 L (33.0-35.0) g/dL Plt Count 252 (150-450) 10^3/uL Sodium 139 (135-145) mmol/L Potassium 4.5 (3.6-5.0) mmol/L Chloride 97 L (101-111) mmol/L Carbon Dioxide 33.0 H (21.0-31.0) mmol/L Anion Gap 13.5 BUN 51 H (7-18) mg/dL Creatinine 1.4 H (0.6-1.3) mg/dL Est Cr Clr Drug Dosing 53.61 mL/min Estimated GFR (MDRD) 52 Glucose 118 H (74-105) mg/dL Calcium 8.1 L (8.4-10.2) mg/dl Phosphorus 2.7 (2.5-4.6) mg/dL Magnesium 1.5 L (1.8-2.5) mg/dL Med Orders - Current: Current Medications Acetaminophen (Tylenol) 650 mg PO Q4H PRN PRN Reason: Pain (Mild 1-3)/fever Albuterol/Ipratropium (Duoneb 3.0-0.5 Mg/3 Ml) 3 ml NEB QIDRT [facility] Last Admin: 10/31/19 07:52 Dose: 3 ml Aspirin (Ecotrin) 325 mg PO DAILY [facility] Last Admin: 10/31/19 09:26 Dose: 325 mg Atorvastatin Calcium (Lipitor) 40 mg PO BEDTIME [facility] Last Admin: 10/30/19 21:47 Dose: 40 mg Budesonide (Pulmicort) 0.5 mg NEB BIDRT [facility] Last Admin: 10/31/19 07:52 Dose: 0.5 mg Bumetanide (Bumex) 2 mg PO BIDDIURETIC [facility] Bumetanide (Bumex) 1 mg IVPUSH BIDDIURETIC [facility] Carvedilol (Coreg) 25 mg PO BIDMEALS [facility] Last Admin: 10/31/19 09:26 Dose: 25 mg Docusate Sodium (Colace) 100 mg PO BID PRN PRN Reason: Constipation Last Admin: 10/28/19 06:05 Dose: 100 mg Enoxaparin Sodium (Lovenox) 40 mg SUBCUT DAILY [facility] Last Admin: 10/31/19 09:27 Dose: 40 mg Vancomycin HCl 1.5 gm/ Premix 300 mls @ 200 mls/hr IV Q24H [facility] Last Infusion: 10/30/19 15:45 Dose: Infused Isosorbide Mononitrate (Imdur) 30 mg PO DAILY [facility] Last Admin: 10/31/19 09:25 Dose: 30 mg Magnesium Hydroxide (Milk Of Magnesia) 30 ml PO Q12H PRN PRN Reason: Constipation Magnesium Oxide (Magnesium Oxide) 500 mg PO WITHBREAKFAST [facility] Stop: 11/02/19 09:31 Last Admin: 10/31/19 09:31 Dose: 500 mg Dakin's Solution 1/2 (Strength) 1 each TOP BID [facility] Last Admin: 10/30/19 21:47 Dose: 1 each Ondansetron HCl (Zofran Odt) 8 mg PO Q8H PRN PRN Reason: Nausea Oxycodone HCl (Oxycodone) 5 mg PO Q6HR [facility] Last Admin: 10/31/19 05:57 Dose: 5 mg Pantoprazole Sodium (Protonix) 40 mg PO ACBREAKFAST [facility] Last Admin: 10/31/19 05:57 Dose: 40 mg Potassium Chloride (Klor-Con 10) 20 meq PO TIDMEALS [facility] Last Admin: 10/31/19 09:26 Dose: 20 meq Prednisone (Prednisone) 40 mg PO WITHBREAKFAST [facility] Last Admin: 10/31/19 09:26 Dose: 40 mg Sodium Chloride (Saline Flush) 10 ml FLUSH ASDIRECTED PRN PRN Reason: IV Use Last Admin: 10/29/19 22:09 Dose: 10 ml Vancomycin HCl (Pharmacy To Dose - Vancomycin) 1 dose .XX ASDIRECTED [facility] Discontinued Medications Albuterol/Ipratropium (Duoneb 3.0-0.5 Mg/3 Ml) 3 ml NEB ONETIME ONE Stop: 10/24/19 17:08 Last Admin: 10/24/19 17:23 Dose: 3 ml Albuterol/Ipratropium (Duoneb 3.0-0.5 Mg/3 Ml) 3 ml NEB QID [facility] Last Admin: 10/26/19 11:14 Dose: Not Given Albuterol/Ipratropium (Duoneb 3.0-0.5 Mg/3 Ml) Confirm Administered Dose 3 ml .ROUTE .STK-MED ONE Stop: 10/29/19 17:01 Last Admin: 10/29/19 17:05 Dose: Not Given Bumetanide (Bumex) 2 mg PO BIDDIURETIC [facility] Last Admin: 10/29/19 11:43 Dose: Not Given Furosemide (Lasix) 60 mg IVPUSH BID [facility] Last Admin: 10/26/19 09:36 Dose: 60 mg Furosemide (Lasix) 40 mg PO BIDDIURETIC [facility] Last Admin: 10/27/19 10:07 Dose: 40 mg Furosemide (Lasix) 40 mg IVPUSH BID [facility] Last Admin: 10/30/19 09:37 Dose: 40 mg Furosemide (Lasix) 40 mg IVPUSH BID [facility] Furosemide (Lasix) 40 mg IVPUSH BIDDIURETIC [facility] Last Admin: 10/30/19 13:58 Dose: 40 mg Heparin Sodium (Porcine) (Heparin Sodium) 5,000 units SUBCUT Q8HR [facility] Last Admin: 10/27/19 14:05 Dose: Not Given Ceftriaxone Sodium 1 gm/ (Sodium Chloride) 50 mls @ 100 mls/hr IV ONETIME ONE Stop: 10/24/19 19:37 Last Admin: 10/24/19 19:36 Dose: 100 mls/hr Azithromycin 500 mg/ Sodium (Chloride) 250 mls @ 250 mls/hr IV DAILY@2000 [facility] Last Admin: 10/28/19 20:10 Dose: 150 mls/hr Ceftriaxone Sodium 1 gm/ (Sodium Chloride) 50 mls @ 100 mls/hr IV DAILY@1800 [facility] Last Admin: 10/28/19 19:20 Dose: 100 mls/hr Vancomycin HCl 1,500 mg/ (Sodium Chloride) 500 mls @ 333.333 mls/hr IV Q24H [facility] Last Admin: 10/29/19 13:27 Dose: 333.333 mls/hr Magnesium Oxide (Magnesium Oxide) 500 mg PO NOW [facility] Stop: 10/30/19 08:24 Last Admin: 10/30/19 09:32 Dose: 500 mg Methylprednisolone Sodium Succinate (Solu-Medrol) 80 mg IVPUSH Q8H [facility] Last Admin: 10/26/19 04:06 Dose: 80 mg Methylprednisolone Sodium Succinate (Solu-Medrol) 60 mg IVPUSH Q8HR [facility] Last Admin: 10/28/19 06:05 Dose: 60 mg Metolazone (Zaroxolyn) 2.5 mg PO ONETIME ONE Stop: 10/30/19 20:31 Metolazone (Zaroxolyn) 2.5 mg PO ONETIME ONE Stop: 10/30/19 13:31 Last Admin: 10/30/19 13:10 Dose: 2.5 mg Dakin's Solution (Half Strength) 0 each TOP TID [facility] Oseltamivir Phosphate (Tamiflu) 75 mg PO BID [facility] Last Admin: 10/25/19 06:53 Dose: Not Given Oseltamivir Phosphate (Tamiflu) 30 mg PO BID [facility] Stop: 10/29/19 09:01 Last Admin: 10/29/19 08:37 Dose: 30 mg Potassium Chloride (Klor-Con 10) 40 meq PO ONETIME ONE Stop: 10/29/19 10:07 Last Admin: 10/29/19 11:29 Dose: 40 meq Sodium Phosphate (Neutra-Phos) 500 mg PO ONETIME ONE Stop: 10/30/19 08:24 Last Admin: 10/30/19 09:34 Dose: 500 mg - Exam General: Alert, Oriented, Cooperative HEENT: Pupils Equal, Pupils Reactive, Mucous Membr. Moist/[place] Neck: Supple Lungs: Normal Respiratory Effort, Wheezing Cardiovascular: Regular Rate, Regular Rhythm, No Murmurs GI/Abdominal Exam: Normal Bowel Sounds, Soft, Non-Tender, No Distention Extremities: Pedal Edema (2+ on right and 1+ on left; bilateral venous stasis changes. Venous stasis ulcer on right lower leg with dressing in place. ), Other Wound/Incisions: Healing Well Neurological: No New Focal Deficit Psy/Mental Status: Alert, Normal Affect, Normal Mood Sepsis Event Note - Evaluation Sepsis Screening Result: No Definite Risk - Focused Exam Vital Signs: Vital Signs Temp Pulse Pulse Resp BP BP BP 10/31/19 09:26 61 179/85 H 10/31/19 09:25 179/85 H 10/31/19 08:04 97.9 F 61 20 179/85 H 10/31/19 07:00 64 10/31/19 04:00 98.3 F 64 20 148/67 H 10/30/19 23:04 98.3 F 63 20 162/70 H Pulse Ox Pulse Ox 10/31/19 09:26 10/31/19 09:25 10/31/19 08:04 98 10/31/19 07:00 95 10/31/19 04:00 92 L 10/30/19 23:04 92 L Date Exam was Performed: 10/31/19 Time Exam was Performed: 10:54 - Problem List & Annotations (1) Hypokalemia SNOMED Code(s): 30377567 Code(s): E87.6 - HYPOKALEMIA Status: Acute Current Visit: Yes (2) Acute on chronic systolic heart failure SNOMED Code(s): 174916785 Code(s): I50.23 - ACUTE ON CHRONIC SYSTOLIC (CONGESTIVE) HEART FAILURE Status: Acute Current Visit: Yes (3) COPD with acute exacerbation SNOMED Code(s): 154915815 Code(s): J44.1 - CHRONIC OBSTRUCTIVE PULMONARY DISEASE W (ACUTE) EXACERBATION Status: Acute Current Visit: Yes (4) Influenza A SNOMED Code(s): 546105055 Code(s): J10.1 - FLU DUE TO OTH IDENT INFLUENZA VIRUS W OTH RESP MANIFEST Status: Acute Current Visit: Yes (5) Pneumonia SNOMED Code(s): 522650292 Code(s): J18.9 - PNEUMONIA, UNSPECIFIED ORGANISM Status: Acute Current Visit: Yes Qualifiers: Pneumonia type: due to unspecified organism Laterality: bilateral Lung location: unspecified part of lung Qualified Code(s): J18.9 - Pneumonia, unspecified organism - Problem List Review Problem List Initiated/Reviewed/Updated: Yes - My Orders Last 24 Hours: My Active Orders 10/30/19 12:00 VANCOmycin/Water for INJ (PEG) [VANCOmycin 1.5 GM/300 ML Premix] 1.5 gm Premix Bag 1 bag IV Q24H 10/31/19 09:30 Magnesium Oxide 500 mg PO WITHBREAKFAST 10/31/19 14:00 Bumetanide [Bumex] 1 mg IVPUSH BIDDIURETIC 11/01/19 05:11 BASIC METABOLIC PANEL,BMP [CHEM] AM CBC W/O DIFF,HEMOGRAM [HEME] AM MAGNESIUM [CHEM] AM PHOSPHORUS [CHEM] AM - Plan Plan:: #Post viral pneumonia: #MRSA pneumonia: Patient with cough, sputum production, and blood cultures positive for MRSA. Completed treatment for influenza A today. -Continue vancomycin -Continue incentive spirometer -Supplemental oxygen, titrate to SPO2 of 88 to 92% #Acute COPD exacerbation: Improved. Patient with decreased cough and decreased sputum production. -Continue nebulized treatments. -Discontinue prednisone -Encourage I-S and flutter valve use #Acute respiratory failure with hypoxia: Improved. -Supplemental oxygen, titrate to SPO2 of 88-92 due to history of COPD -Encourage incentive spirometer and flutter valve use #Acute on chronic systolic heart failure: Patient presented with worsening lower extremity edema in the context of progressive shortness of breath and respiratory failure. He was switched from Lasix to Bumex due to poor diuresis. -Start Bumex -Daily weights -Strict I's and O's -Low-sodium diet #Chronic venous stasis ulcer -Continue wound care #Electrolyte imbalances: Patient with hypokalemia, hypophosphatemia, and hypomagnesemia. -Continue oral replacements. -Monitor and replace electrolytes. DVT PPx: Lovenox GI PPx: Low Na diet Code status: Full code
[2019-10-31] MEDS: DAKIN S TOP SCH ×2 (12:36→22:13)
[2019-10-31] MEDS: Bumetanide 1 MG/4 ML MDV IVPUSH SCH ×2 (12:36→15:56)
[2019-10-31] MEDS: Doxycycline 100 MG Cap PO SCH ×2 (12:37→22:09)
[2019-10-31] MEDS: Sodium Chloride 0.9% 10 ML Syringe FLUSH PRN ×2 (12:38→15:56)
[2019-10-31] MEDS: Furosemide 40 MG/4 ML VIAL IVPUSH SCH (12:41)
[2019-10-31] MEDS: atorvaSTATin 20 MG Tab PO SCH (22:09)
[2019-11-01] MEDS: oxyCODONE 5 MG Tab PO SCH ×3 (00:28→12:36)
[2019-11-01] MEDS: Pantoprazole 40 MG Tab.CR PO SCH (06:38)
[2019-11-01 07:07] LABS: ANION GAP 13.5
[2019-11-01] MEDS: Albuterol/Ipratropium 3.0-0.5 MG/3 ML Neb Soln NEB SCH (07:39)
[2019-11-01] MEDS: Budesonide 0.5 MG/2 ML Neb Susp NEB SCH (07:39)
[2019-11-01] MEDS: Aspirin 325 MG Tab.EC PO SCH (08:17)
[2019-11-01] MEDS: Doxycycline 100 MG Cap PO SCH (08:18)
[2019-11-01] MEDS: Potassium Chloride 10 MEQ Tab.ER PO SCH ×2 (08:18→12:36)
[2019-11-01] MEDS: Isosorbide Mononitrate 30 MG Tab.ER PO SCH (08:18)
[2019-11-01] MEDS: Sodium Chloride 0.9% 10 ML Syringe FLUSH PRN (08:19)
[2019-11-01] MEDS: Bumetanide 1 MG/4 ML MDV IVPUSH SCH (08:19)
[2019-11-01] MEDS: Carvedilol 25 MG Tab PO SCH (08:19)
[2019-11-01] MEDS: Enoxaparin 40 MG/0.4 ML Syringe SUBCUT SCH (08:20)
--- NOTE | 2019-11-01 10:16 | PCM.DCSUM1 ---
Discharge Summary - Hospital Course Free Text/Narrative:: 59-year-old male with a medical history significant for COPD, hypertension, hyperlipidemia, type 2 diabetes mellitus, chronic CHF. Admitted with increasing shortness of breath. Noted to have influenza A+. Bilateral pneumonia. Acute COPD exacerbation. Acute CHF exercabation. Symptoms improved with treatments including COPD protocol, IV diuretics, Tamiflu and antibiotics. Completed dose of tamifli Sputum cultures were positive for MRSA, post flu pneumonia. Started on Vanco. Switched to oral doxycycline. Can DC home today on oral doxycycline for one more week. Follow up with PCP Diagnosis: Stroke: No - Discharge Data Discharge Date: 11/01/19 Discharge Disposition: Home, Self-Care 01 Condition: Good - Referral to Home Health Primary Care Physician: Romelia Schafer NP - Patient Summary/Data Consults: Consultations 10/31/19 11:15 OT Evaluation and Treatment [CONS] Routine - Discharge Plan *PRESCRIPTION DRUG MONITORING PROGRAM REVIEWED*: Not Applicable *COPY OF PRESCRIPTION DRUG MONITORING REPORT IN PATIENT KYLIE: Not Applicable Prescriptions/Med Rec: Doxycycline [Vibramycin] 100 mg PO Q12H 7 Days #14 cap Home Medications: Home Meds Acetaminophen 1,000 mg PO Q8H 01/16/19 [History] Albuterol [Ventolin HFA] 2 puff INH Q6H PRN 01/16/19 [History] Budesonide/Formoterol [Symbicort 160-4.5 MCG] 2 puff INH BID 01/16/19 [History] Carvedilol [Coreg] 25 mg PO BIDMEALS 01/16/19 [History] Albuterol/Ipratropium [DuoNeb 3.0-0.5 MG/3 ML] 3 ml NEB TID 08/15/19 [History] Pantoprazole Sodium [Protonix] 40 mg PO ACBREAKFAST 08/15/19 [History] Bumetanide 2 mg PO DAILY 10/24/19 [History] Isosorbide Mononitrate [Isosorbide Mononitrate ER] 30 mg PO DAILY 10/24/19 [ History] Ondansetron [Zofran] 8 mg PO Q8H PRN 10/24/19 [History] Prochlorperazine [Compazine] 10 mg PO Q6H PRN 10/24/19 [History] metOLazone [Metolazone] 2.5 mg PO Q48H 10/24/19 [History] Doxycycline [Vibramycin] 100 mg PO Q12H 7 Days #14 cap 11/01/19 [Rx] Forms: ED Department Discharge Referrals: Romelia Schafer [employer] [Primary Care Provider] - - Discharge Summary/Plan Comment DC Time >30 min.: Yes - General Info Date of Service: 11/01/19 Admission Dx/Problem (Free Text: Influenza A, Acute COPD exacerbation, and acute CHF exacerbation Subjective Update: No acute events overnight. Patient reports that he is doing okay. Reports that cough is improved. Denies fevers, chills, nausea, vomiting, diarrhea, constipation, dysuria, hematuria, chest pain, or any new symptoms. - Review of Systems General: Reports: No Symptoms HEENT: Reports: No Symptoms Pulmonary: Reports: No Symptoms Cardiovascular: Reports: No Symptoms Gastrointestinal: Reports: No Symptoms Genitourinary: Reports: No Symptoms Musculoskeletal: Reports: Other (chronic leg swelling) Neurological: Reports: No Symptoms Psychiatric: Reports: No Symptoms - Patient Data Vitals - Most Recent: Last Vital Signs Temp 36.7 C 11/01/19 08:06 Pulse 70 11/01/19 08:19 Resp 20 11/01/19 08:06 BP 148/82 H 11/01/19 08:19 Pulse Ox 98 11/01/19 08:06 Weight - Most Recent: 106.866 kg I&O - Last 24 hours: Intake & Output 10/31/19 11/01/19 11/01/19 22:59 06:59 14:59 Intake Total 300 360 300 Output Total 1375 990 Balance -1075 -630 300 Lab Results - Last 24 hrs: Laboratory Results - last 24 hr 11/01/19 11/01/19 Range/Units 06:20 06:20 WBC 18.3 H (5.0-10.0) 10^3/uL RBC 4.19 L (4.6-6.2) 10^6/uL Hgb 11.2 L (14.0-18.0) g/dL Hct 35.7 L (40.0-54.0) % MCV 85.2 (80-100) fL MCH 26.7 L (27.0-34.0) pg MCHC 31.4 L (33.0-35.0) g/dL Plt Count 273 (150-450) 10^3/uL Sodium 138 (135-145) mmol/L Potassium 4.5 (3.6-5.0) mmol/L Chloride 96 L (101-111) mmol/L Carbon Dioxide 33.0 H (21.0-31.0) mmol/L Anion Gap 13.5 BUN 46 H (7-18) mg/dL Creatinine 1.4 H (0.6-1.3) mg/dL Est Cr Clr Drug Dosing 53.61 mL/min Estimated GFR (MDRD) 52 Glucose 124 H (74-105) mg/dL Calcium 8.4 (8.4-10.2) mg/dl Phosphorus 3.0 (2.5-4.6) mg/dL Magnesium 1.6 L (1.8-2.5) mg/dL Med Orders - Current: Current Medications Acetaminophen (Tylenol) 650 mg PO Q4H PRN PRN Reason: Pain (Mild 1-3)/fever Albuterol/Ipratropium (Duoneb 3.0-0.5 Mg/3 Ml) 3 ml NEB QIDRT [facility] Last Admin: 11/01/19 07:39 Dose: 3 ml Aspirin (Ecotrin) 325 mg PO DAILY [facility] Last Admin: 11/01/19 08:17 Dose: 325 mg Atorvastatin Calcium (Lipitor) 40 mg PO BEDTIME [facility] Last Admin: 10/31/19 22:09 Dose: 40 mg Budesonide (Pulmicort) 0.5 mg NEB BIDRT [facility] Last Admin: 11/01/19 07:39 Dose: 0.5 mg Bumetanide (Bumex) 1 mg IVPUSH BIDDIURETIC [facility] Last Admin: 11/01/19 08:19 Dose: 1 mg Carvedilol (Coreg) 25 mg PO BIDMEALS [facility] Last Admin: 11/01/19 08:19 Dose: 25 mg Docusate Sodium (Colace) 100 mg PO BID PRN PRN Reason: Constipation Last Admin: 10/28/19 06:05 Dose: 100 mg Doxycycline Hyclate (Vibramycin) 100 mg PO Q12HR [facility] Stop: 11/05/19 11:31 Last Admin: 11/01/19 08:18 Dose: 100 mg Enoxaparin Sodium (Lovenox) 40 mg SUBCUT DAILY [facility] Last Admin: 11/01/19 08:20 Dose: 40 mg Magnesium Sulfate/Dextrose 1 (gm/ Premix) 100 mls @ 100 mls/hr IV ONETIME ONE Stop: 11/01/19 10:21 Isosorbide Mononitrate (Imdur) 30 mg PO DAILY [facility] Last Admin: 11/01/19 08:18 Dose: 30 mg Magnesium Hydroxide (Milk Of Magnesia) 30 ml PO Q12H PRN PRN Reason: Constipation Magnesium Oxide (Magnesium Oxide) 500 mg PO WITHBREAKFAST [facility] Stop: 11/02/19 09:31 Last Admin: 11/01/19 08:18 Dose: 500 mg Dakin's Solution 1/2 (Strength) 1 each TOP BID [facility] Last Admin: 10/31/19 22:13 Dose: 1 each Ondansetron HCl (Zofran Odt) 8 mg PO Q8H PRN PRN Reason: Nausea Oxycodone HCl (Oxycodone) 5 mg PO Q6HR [facility] Last Admin: 11/01/19 06:39 Dose: 5 mg Pantoprazole Sodium (Protonix) 40 mg PO ACBREAKFAST [facility] Last Admin: 11/01/19 06:38 Dose: 40 mg Potassium Chloride (Klor-Con 10) 20 meq PO TIDMEALS [facility] Last Admin: 11/01/19 08:18 Dose: 20 meq Sodium Chloride (Saline Flush) 10 ml FLUSH ASDIRECTED PRN PRN Reason: IV Use Last Admin: 11/01/19 08:19 Dose: 10 ml Discontinued Medications Albuterol/Ipratropium (Duoneb 3.0-0.5 Mg/3 Ml) 3 ml NEB ONETIME ONE Stop: 10/24/19 17:08 Last Admin: 10/24/19 17:23 Dose: 3 ml Albuterol/Ipratropium (Duoneb 3.0-0.5 Mg/3 Ml) 3 ml NEB QID [facility] Last Admin: 10/26/19 11:14 Dose: Not Given Albuterol/Ipratropium (Duoneb 3.0-0.5 Mg/3 Ml) Confirm Administered Dose 3 ml .ROUTE .STK-MED ONE Stop: 10/29/19 17:01 Last Admin: 10/29/19 17:05 Dose: Not Given Bumetanide (Bumex) 2 mg PO BIDDIURETIC [facility] Last Admin: 10/29/19 11:43 Dose: Not Given Bumetanide (Bumex) 2 mg PO BIDDIURETIC [facility] Furosemide (Lasix) 60 mg IVPUSH BID [facility] Last Admin: 10/26/19 09:36 Dose: 60 mg Furosemide (Lasix) 40 mg PO BIDDIURETIC [facility] Last Admin: 10/27/19 10:07 Dose: 40 mg Furosemide (Lasix) 40 mg IVPUSH BID [facility] Last Admin: 10/30/19 09:37 Dose: 40 mg Furosemide (Lasix) 40 mg IVPUSH BID [facility] Furosemide (Lasix) 40 mg IVPUSH BIDDIURETIC [facility] Last Admin: 10/31/19 12:41 Dose: Not Given Heparin Sodium (Porcine) (Heparin Sodium) 5,000 units SUBCUT Q8HR [facility] Last Admin: 10/27/19 14:05 Dose: Not Given Ceftriaxone Sodium 1 gm/ (Sodium Chloride) 50 mls @ 100 mls/hr IV ONETIME ONE Stop: 10/24/19 19:37 Last Admin: 10/24/19 19:36 Dose: 100 mls/hr Azithromycin 500 mg/ Sodium (Chloride) 250 mls @ 250 mls/hr IV DAILY@2000 [facility] Last Admin: 10/28/19 20:10 Dose: 150 mls/hr Ceftriaxone Sodium 1 gm/ (Sodium Chloride) 50 mls @ 100 mls/hr IV DAILY@1800 [facility] Last Admin: 10/28/19 19:20 Dose: 100 mls/hr Vancomycin HCl 1,500 mg/ (Sodium Chloride) 500 mls @ 333.333 mls/hr IV Q24H [facility] Last Admin: 10/29/19 13:27 Dose: 333.333 mls/hr Vancomycin HCl 1.5 gm/ Premix 300 mls @ 200 mls/hr IV Q24H [facility] Last Infusion: 10/30/19 15:45 Dose: Infused Magnesium Oxide (Magnesium Oxide) 500 mg PO NOW STA Stop: 10/30/19 08:24 Last Admin: 10/30/19 09:32 Dose: 500 mg Methylprednisolone Sodium Succinate (Solu-Medrol) 80 mg IVPUSH Q8H [facility] Last Admin: 10/26/19 04:06 Dose: 80 mg Methylprednisolone Sodium Succinate (Solu-Medrol) 60 mg IVPUSH Q8HR [facility] Last Admin: 10/28/19 06:05 Dose: 60 mg Metolazone (Zaroxolyn) 2.5 mg PO ONETIME ONE Stop: 10/30/19 20:31 Metolazone (Zaroxolyn) 2.5 mg PO ONETIME ONE Stop: 10/30/19 13:31 Last Admin: 10/30/19 13:10 Dose: 2.5 mg Dakin's Solution (Half Strength) 0 each TOP TID [facility] Oseltamivir Phosphate (Tamiflu) 75 mg PO BID [facility] Last Admin: 10/25/19 06:53 Dose: Not Given Oseltamivir Phosphate (Tamiflu) 30 mg PO BID [facility] Stop: 10/29/19 09:01 Last Admin: 10/29/19 08:37 Dose: 30 mg Potassium Chloride (Klor-Con 10) 40 meq PO ONETIME ONE Stop: 10/29/19 10:07 Last Admin: 10/29/19 11:29 Dose: 40 meq Prednisone (Prednisone) 40 mg PO WITHBREAKFAST [facility] Last Admin: 10/31/19 09:26 Dose: 40 mg Sodium Phosphate (Neutra-Phos) 500 mg PO ONETIME ONE Stop: 10/30/19 08:24 Last Admin: 10/30/19 09:34 Dose: 500 mg Vancomycin HCl (Pharmacy To Dose - Vancomycin) 1 dose .XX ASDIRECTED [facility] - Exam General: Reports: Alert, Oriented HEENT: Reports: Pupils Equal, Pupils Reactive Neck: Reports: Supple Lungs: Reports: Clear to Auscultation Cardiovascular: Reports: Regular Rate, Regular Rhythm GI/Abdominal Exam: Normal Bowel Sounds, Soft, Non-Tender Extremities: Pedal Edema
[2019-11-01] MEDS: DAKIN S TOP SCH (11:10)
[2019-11-01 13:22] VITALS: BP 146/78; PULSE 73
[2019-11-02] MEDS: Albuterol/Ipratropium 3.0-0.5 MG/3 ML Neb Soln NEB SCH (11:58)
[2019-11-02] MEDS: Bumetanide 1 MG/4 ML MDV IVPUSH SCH (11:58)
== END 2019-11-01 16:35 | disposition home or self-care (01) | DRG 177 ==
LOC: DL.ED 16:49 → DL.MS 19:11
PROVIDERS: ADMIT Internal Medicine; ATTEND Hospitalist
DX: J09.X1 Influenza due to identified novel influenza A virus with pneumonia (principal); J10.08 Influenza due to other identified influenza virus with other specified pneumonia; I10 Essential (primary) hypertension; I25.2 Old myocardial infarction; R32 Unspecified urinary incontinence; J96.01 Acute respiratory failure with hypoxia; J15.212 Pneumonia due to Methicillin resistant Staphylococcus aureus; J44.9 Chronic obstructive pulmonary disease, unspecified; Z86.14 Personal history of Methicillin resistant Staphylococcus aureus infection; Z95.810 Presence of automatic (implantable) cardiac defibrillator; Z79.82 Long term (current) use of aspirin; Z79.51 Long term (current) use of inhaled steroids; Z79.52 Long term (current) use of systemic steroids; Z79.899 Other long term (current) drug therapy; I50.23 Acute on chronic systolic (congestive) heart failure; I13.0 Hypertensive heart and chronic kidney disease with heart failure and stage 1 through stage 4 chronic kidney disease, or unspecified chronic kidney disease; L03.115 Cellulitis of right lower limb; J44.0 Chronic obstructive pulmonary disease with (acute) lower respiratory infection; J44.1 Chronic obstructive pulmonary disease with (acute) exacerbation; E78.5 Hyperlipidemia, unspecified; N18.9 Chronic kidney disease, unspecified; M06.9 Rheumatoid arthritis, unspecified; E87.6 Hypokalemia; E83.39 Other disorders of phosphorus metabolism; E83.42 Hypomagnesemia; I25.10 Atherosclerotic heart disease of native coronary artery without angina pectoris; E66.9 Obesity, unspecified; I83.019 Varicose veins of right lower extremity with ulcer of unspecified site; Z23 Encounter for immunization; Z87.891 Personal history of nicotine dependence; Z95.0 Presence of cardiac pacemaker; Z68.35 Body mass index [BMI] 35.0-35.9, adult
CPT/HCPCS: 36415; 71045; 80048; 80053; 83605; 83735; 83880; 84100; 84484; 85025; 85027; 87040; 87070; 87077; 87186; 87205; 87804; 90686; 93005; 93971; 94010; 94640; 94667; 99284; 99285-25; A9270-GY; G0008; J0456; J0696; J1644; J1650; J1940; J2920; J3370; J3475; J3490; J7040; J7050; J7620-GY

== ENCOUNTER 2020-01-05 12:53 | Emergency (ER) | payer MEDICARE, MEDICAID ==
[2020-01-05 13:15] VITALS: BP 146/85; PULSE 96
--- NOTE | 2020-01-05 13:31 | EDM.PDOC ---
ED HPI GENERAL MEDICAL PROBLEM - General Chief Complaint: Abdominal Pain Stated Complaint: STOMACH PAIN Time Seen by Provider: 01/05/20 13:31 Source of Information: Reports: Patient, Old Records, RN, RN Notes Reviewed History Limitations: Reports: No Limitations - History of Present Illness INITIAL COMMENTS - FREE TEXT/NARRATIVE: Pt presents to ER from home by POV with c/o upper/epigastric abdominal pain with nausea, vomiting, and diarrhea. He states he wakes in the mornings with epigastric and sometimes lower abdominal pain for the last week or more. He is mostly having the nausea, vomiting, and diarrhea after he eats. He pain is constant. Also because he missed his appointment for back pain with the clinic, so he decided to come here to check out his abdominal problem. He states that he has not eaten much for a week. He has more nausea than vomiting. He has diarrhea when he eats as well, but states that his appetite is poor. He states he just finished a one month coarse of antibiotics for a foot/leg infection. Denies bloody stool, black or tarry stool. He denies any fever, chills, body aches, sore throat, travel, cough or shortness of breath. Denies any exposure to confirmed or suspected Covid cases. Duration: Week(s): (2), Constant Location: Reports: Abdomen Quality: Reports: Ache Severity: Moderate Improves with: Reports: None Worsens with: Reports: Eating Associated Symptoms: Reports: No Other Symptoms Back Pain Score (Numeric/FACES): 6 - Related Data Allergies Allergy/AdvReac Type Severity Reaction Status Date / Time No Known Allergies Allergy Verified 10/25/19 01:45 Home Meds: Home Meds Acetaminophen 1,000 mg PO Q8H 01/16/19 [History] Albuterol [Ventolin HFA] 2 puff INH Q6H PRN 01/16/19 [History] Budesonide/Formoterol [Symbicort 160-4.5 MCG] 2 puff INH BID 01/16/19 [History] carvediloL [Coreg] 25 mg PO BIDMEALS 01/16/19 [History] Albuterol/Ipratropium [DuoNeb 3.0-0.5 MG/3 ML] 3 ml NEB TID 08/15/19 [History] Pantoprazole Sodium [Protonix] 40 mg PO ACBREAKFAST 08/15/19 [History] Bumetanide 2 mg PO DAILY 10/24/19 [History] Isosorbide Mononitrate [Isosorbide Mononitrate ER] 30 mg PO DAILY 10/24/19 [ History] Ondansetron [Zofran] 8 mg PO Q8H PRN 10/24/19 [History] Prochlorperazine [Compazine] 10 mg PO Q6H PRN 10/24/19 [History] metOLazone [Metolazone] 2.5 mg PO Q48H 10/24/19 [History] Doxycycline [Vibramycin] 100 mg PO Q12H 7 Days #14 cap 11/01/19 [Rx] Past Medical History - Past Health History Medical/Surgical History: Denies Medical/Surgical History HEENT History: Reports: None Cardiovascular History: Reports: CAD, Cardiomyopathy, Hypertension, [place], Pacemaker Respiratory History: Reports: SOB Other Respiratory History: pt unsure of respiratory history but has inhaler, pulmonary edma Gastrointestinal History: Reports: None Genitourinary History: Reports: Urinary Incontinence Musculoskeletal History: Reports: Fracture, RA Other Musculoskeletal History: 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, broken lef Neurological History: Reports: None Psychiatric History: Reports: None Endocrine/Metabolic History: Reports: Obesity/BMI 30+ Hematologic History: Reports: Blood Transfusion(s) Immunologic History: Reports: None Oncologic (Cancer) History: Reports: None Dermatologic History: Reports: Cellulitis - Infectious Disease History Infectious Disease History: Reports: MRSA - Past Surgical History Head Surgeries/Procedures: Reports: None HEENT Surgical History: Reports: Other (See Below) Other HEENT Surgeries/Procedures: Surgery for hole in eardrum Cardiovascular Surgical History: Reports: AICD Respiratory Surgical History: Reports: None GI Surgical History: Reports: None Male Surgical History: Reports: None Social & Family History - Family History Family Medical History: Noncontributory - Tobacco Use Smoking Status *Q: Never Smoker - Caffeine Use Caffeine Use: Reports: Coffee, Soda, Tea - Recreational Drug Use Recreational Drug Use: No - Living Situation & Occupation Living situation: Reports: with Family Occupation: Disabled ED ROS GENERAL - Review of Systems Review Of Systems: Comprehensive ROS is negative, except as noted in HPI. ED EXAM, GI/ABD - Physical Exam Exam: See Below Exam Limited By: No Limitations General Appearance: Alert, WD/WN, No Apparent Distress, Obese. No: Active Emesis Eyes: Bilateral: Normal Appearance (No scleral icterus) Nose: Normal Inspection Throat/Mouth: Normal Inspection, Normal Lips, Normal Voice, No Airway Compromise Head: Atraumatic, Normocephalic Neck: Normal Inspection, Supple, Non-Tender, Full Range of Motion Respiratory/Chest: No Respiratory Distress, Lungs Clear, Normal Breath Sounds, No Accessory Muscle Use, Chest Non-Tender Cardiovascular: Regular Rate, Rhythm, No Edema GI/Abdominal Exam: Normal Bowel Sounds, Soft, No Distention, No Abnormal Bruit, Tender (Epigastric region only). No: Guarding, Rigid, Rebound (Male) Exam: Deferred Rectal (Males) Exam: Deferred Back Exam: Normal Inspection Neurological: Alert, Oriented, No Motor/Sensory Deficits Psychiatric: Normal Mood Skin Exam: Warm, Dry, Intact, Normal Color, No Rash. No: Ecchymosis, Jaundice, Petechiae Course - Vital Signs Last Recorded V/S: Last Vital Signs Temp 96.8 F L 01/05/20 13:14 Pulse 96 01/05/20 13:14 Resp 14 01/05/20 13:14 BP 146/85 H 01/05/20 13:14 Pulse Ox 96 01/05/20 13:14 - Orders/Labs/Meds Orders: Active Orders 24 hr Category Date Time Status Peripheral IV Care [RC] . DIRECTED Care 01/05/20 13:41 Active Sodium Chloride 0.9% [Saline Flush] Med 01/05/20 13:40 Active 10 ml FLUSH ASDIRECTED PRN Peripheral IV Insertion Adult [OM.PC] Stat Oth 01/05/20 13:40 Ordered Medication Orders Sodium Chloride (Saline Flush) 10 ml FLUSH ASDIRECTED PRN PRN Reason: Keep Vein Open Last Admin: 01/05/20 14:42 Dose: 10 ml Labs: Laboratory Tests 01/05/20 01/05/20 Range/Units 13:59 13:59 WBC 8.8 (5.0-10.0) 10^3/uL RBC 4.25 L (4.6-6.2) 10^6/uL Hgb 10.7 L (14.0-18.0) g/dL Hct 35.8 L (40.0-54.0) % MCV 84.2 (80-100) fL MCH 25.2 L (27.0-34.0) pg MCHC 29.9 L (33.0-35.0) g/dL Plt Count 327 (150-450) 10^3/uL Neut % (Auto) 56.2 (42.2-75.2) % Lymph % (Auto) 22.2 (20.5-50.1) % Gates % (Auto) 7.2 (2-8) % Eos % (Auto) 13.9 H (1.0-3.0) % Baso % (Auto) 0.5 (0.0-1.0) % Sodium 140 (136-145) mmol/L Potassium 4.0 (3.5-5.1) mmol/L Chloride 107 (98-107) mmol/L Carbon Dioxide 28 (21-32) mmol/L Anion Gap 9.0 (7-13) mEq/L BUN 9 (7-18) mg/dL Creatinine 1.30 (0.70-1.30) mg/dL Est Cr Clr Drug Dosing 57.73 mL/min Estimated GFR (MDRD) 56 BUN/Creatinine Ratio 6.9 (No establ ref range) Glucose 90 (74-99) mg/dL Calcium 7.7 L (8.5-10.1) mg/dL Total Bilirubin 0.2 (0.2-1.0) mg/dL AST 22 (15-37) U/L ALT 11 L (16-63) U/L Alkaline Phosphatase 104 (46-116) U/L Total Protein 5.4 L (6.4-8.2) g/dL Albumin 1.7 L (3.4-5.0) g/dL Globulin 3.7 Albumin/Globulin Ratio 0.46 Amylase 15 L (25-115) U/L Lipase 57 L (73-393) U/L Meds: Medications Generic Name Dose Route Start Last Admin Trade Name Freq PRN Reason Stop Dose Admin Sodium Chloride 10 ml 01/05/20 13:40 01/05/20 14:42 Saline Flush FLUSH 10 ml ASDIRECTED PRN Administration Keep Vein Open Discontinued Medications Generic Name Dose Route Start Last Admin Trade Name Freq PRN Reason Stop Dose Admin Al Hydroxide/Mg Hydroxide 30 ml 01/05/20 13:41 01/05/20 15:05 Gi Cocktail PO 01/05/20 13:42 30 ml ONETIME ONE Administration Ondansetron HCl 4 mg 01/05/20 13:40 01/05/20 14:42 Zofran IV 01/05/20 13:41 4 mg ONETIME ONE Administration Pantoprazole Sodium 40 mg 01/05/20 13:40 01/05/20 14:42 Protonix Iv IVPUSH 01/05/20 13:41 40 mg ONETIME ONE Administration - Re-Assessments/Exams Free Text/Narrative Re-Assessment/Exam: 01/05/20 15:25 Pt could not produce a stool specimen while in ER. He has been advised to f/u in clinic for further evaluation and to r/o C-diff. Departure - Departure Time of Disposition: 15:26 Disposition: Home, Self-Care 01 Condition: Good Clinical Impression: Gastroenteritis - Discharge Information *PRESCRIPTION DRUG MONITORING PROGRAM REVIEWED*: Not Applicable *COPY OF PRESCRIPTION DRUG MONITORING REPORT IN PATIENT KYLIE: Not Applicable Instructions: Abdominal Pain, Adult, [id number], Nausea and Vomiting, Adult, [id number], Diarrhea, Adult Forms: ED Department Discharge Additional Instructions: Rx: Zofran 4mg Rx: Carafate 1g Follow up in clinic next week for recheck and ask to be checked for C-diff. colitis if the diarrhea has not resolved. Sepsis Event Note - Evaluation Sepsis Screening Result: No Definite Risk - Focused Exam Vital Signs: Vital Signs Temp Pulse Resp BP Pulse Ox 01/05/20 13:14 96.8 F L 96 14 146/85 H 96 Date Exam was Performed: 01/05/20 Time Exam was Performed: 15:25 - My Orders Last 24 Hours: My Active Orders 01/05/20 13:40 Sodium Chloride 0.9% [Saline Flush] 10 ml FLUSH ASDIRECTED PRN Peripheral IV Insertion Adult [OM.PC] Stat 01/05/20 13:41 Peripheral IV Care [RC] . DIRECTED - Assessment/Plan Last 24 Hours: My Active Orders 01/05/20 13:40 Sodium Chloride 0.9% [Saline Flush] 10 ml FLUSH ASDIRECTED PRN Peripheral IV Insertion Adult [OM.PC] Stat 01/05/20 13:41 Peripheral IV Care [RC] . DIRECTED
[2020-01-05] MEDS ORDERED: Sodium Chloride 0.9% 10 ML Syringe FLUSH PRN (13:40)
[2020-01-05] MEDS ORDERED: Pantoprazole 40 MG Vial IVPUSH ONE (13:40)
[2020-01-05] MEDS ORDERED: Ondansetron 4 MG/2 ML SDV IV ONE (13:40)
[2020-01-05] MEDS ORDERED: GI Cocktail Oral Solution 30 ML PO ONE (13:41)
== END 2020-01-05 15:46 | disposition home or self-care (01) ==
LOC: DL.ED 12:53
DX: K52.9 Noninfective gastroenteritis and colitis, unspecified (principal); I25.10 Atherosclerotic heart disease of native coronary artery without angina pectoris; I10 Essential (primary) hypertension; I25.2 Old myocardial infarction; E66.9 Obesity, unspecified; Z68.34 Body mass index [BMI] 34.0-34.9, adult; Z79.899 Other long term (current) drug therapy
CPT/HCPCS: 36415; 80053; 82150; 83690; 85025; 96374; 96375; 99284; A9270; C9113; J2405; 99283

== ENCOUNTER 2020-01-29 07:00 | Day surgery (SDC) | payer MEDICARE, MEDICAID ==
[~2020-01-29 07:00] MED LIST: Dextrose 5%-0.45% NaCl 1,000 ML IV SCH; Midazolam 1 MG/ML 2 ML SDV ONE; fentaNYL 100 MCG/2 ML SDV ONE
[2020-01-29] MEDS ORDERED: Midazolam 1 MG/ML 2 ML SDV IV ONE ×2 (07:01→08:04)
[2020-01-29] MEDS ORDERED: fentaNYL 100 MCG/2 ML SDV IV ONE ×3 (07:01→08:06)
[2020-01-29 12:15] VITALS: BP 100/62; PULSE 55
--- NOTE | 2020-01-29 14:59 | OR ---
DATE: 01/29/2020 PROCEDURE: Esophagogastroduodenoscopy and multiple pinch biopsies. INSTRUMENT USED: [id number]-HQ190 Olympus video panendoscope. PREMEDICATIONS: No oral or topical anesthesia used. Fentanyl 100 mcg intravenous, Versed 1 mg intravenous. Nasal O2 cannula. The procedure was done under pulse oximetry, BP recording, and quality assurance monitor. INDICATION: The patient with persistent nausea, abdominal pain, and chronic diarrhea, unexplained and not responsive to medical measures, on PPI. Has history of rheumatoid arthritis and also anemic. Esophagogastroduodenoscopy was performed for detection of any active erosive lesions, Narayan esophagus and/or malignancy also under consideration, H. pylori status to be determined, small bowel biopsies to be obtained for celiac disease, endoscopic hemostasis therapy if needed. DESCRIPTION OF PROCEDURE: The scope passed with ease. Adequate visualization of the esophagus was made from proximal to distal areas. No upper esophageal lesions identified. No distal esophageal stricture. No uphill or downhill esophageal viruses. No Nevaeh-Cisneros tear. No evidence of erosive esophagitis by Whitman criteria. No esophageal polyp or tumor mass identified. Z-line was seen at around 40 cm distal to the oral verge, configuration consistent with grade 1 by ZAP classification. No proximal gastric varices noted. Gastric fundus examination by retroflexion showed no polypoid lesions. No gastric ulcer, malignant mass, or vascular ectasia identified. Scattered gastric antral erosions noted without bleeding from them. Duodenal bulb showed no ulcer. Visualized second part of the duodenum was unremarkable. There was pinkish liquid material coating the entire visualized areas. Multiple pinch biopsies, 4 in number, were taken from different areas of the second part of duodenum and tissues were also obtained from the duodenal bulb at 9 and 12 o'clock positions and sent for any histopathologic evidence of celiac disease. Multiple pinch biopsies were also obtained from the gastric antrum and proximal body and sent for PyloriTek test for H. pylori and histopathology. No bleeding was noted from any of the visualized areas at the completion of the examination. Photographs were taken of the duodenal bulb, gastric antrum, fundus, and distal esophagus. IMPRESSION: Gastric antral erosions. The patient tolerated the procedure well. [facility] /[id number]
== END 2020-01-29 10:34 | disposition home or self-care (01) ==
LOC: DL.ENDO 07:00
PROVIDERS: ATTEND Internal Medicine Gastroenterology
DX: K29.50 Unspecified chronic gastritis without bleeding (principal); K25.9 Gastric ulcer, unspecified as acute or chronic, without hemorrhage or perforation; K31.811 Angiodysplasia of stomach and duodenum with bleeding; K52.9 Noninfective gastroenteritis and colitis, unspecified; E66.09 Other obesity due to excess calories; E78.5 Hyperlipidemia, unspecified; I13.0 Hypertensive heart and chronic kidney disease with heart failure and stage 1 through stage 4 chronic kidney disease, or unspecified chronic kidney disease; I50.9 Heart failure, unspecified; N18.9 Chronic kidney disease, unspecified; D63.1 Anemia in chronic kidney disease; E61.1 Iron deficiency; F10.21 Alcohol dependence, in remission; L97.919 Non-pressure chronic ulcer of unspecified part of right lower leg with unspecified severity; M19.90 Unspecified osteoarthritis, unspecified site; M54.5 Low back pain; N05.7 Unspecified nephritic syndrome with diffuse crescentic glomerulonephritis; L02.619 Cutaneous abscess of unspecified foot; L97.509 Non-pressure chronic ulcer of other part of unspecified foot with unspecified severity; Z87.891 Personal history of nicotine dependence; Z98.890 Other specified postprocedural states; Z87.01 Personal history of pneumonia (recurrent); Z87.39 Personal history of other diseases of the musculoskeletal system and connective tissue; Z68.31 Body mass index [BMI] 31.0-31.9, adult
CPT/HCPCS: 43239; 87077; J2250; J3010; J7042; 88305; 88313; 88342

== ENCOUNTER 2020-06-06 17:21 | Emergency (ER) | payer MEDICARE, MEDICAID ==
--- NOTE | 2020-06-06 17:31 | EDM.PDOC ---
"ED HPI GENERAL MEDICAL PROBLEM - General Chief Complaint: Chest Pain Stated Complaint: CHEST PAIN,HURTS TO BREATH/SOB Time Seen by Provider: 06/06/20 17:31 Source of Information: Reports: Patient, Family, RN, RN Notes Reviewed History Limitations: Reports: No Limitations - History of Present Illness INITIAL COMMENTS - FREE TEXT/NARRATIVE: Patient presents to ED via personal vehicle with daughter for complaints of shortness of breath and chest pain. Per patient report his shortness of breath began yesterday morning upon awakening. He relates it has progressively worsened since this time and notices it is worse in the mornings when he is laying down. He states his chest pain began this morning upon awakening and has progressively worsened since this time. He states the pain originates in his mid chest and radiates into his back and to his left lateral side. He has not noticed any aggravating factors for this pain. He states this pain did not improve with Tylenol. He denies cough, recent illness, exposure to illness, bowel or bladder changes. chest Pain Score (Numeric/FACES): 52 - Related Data Allergies Allergy/AdvReac Type Severity Reaction Status Date / Time No Known Allergies Allergy Verified 06/06/20 17:55 Home Meds: Home Meds Acetaminophen 1,000 mg PO Q8H 01/16/19 [History] Albuterol [Ventolin HFA] 2 puff INH Q6H PRN 01/16/19 [History] Budesonide/Formoterol [Symbicort 160-4.5 MCG] 2 puff INH BID 01/16/19 [History] carvediloL [Coreg] 25 mg PO BIDMEALS 01/16/19 [History] Albuterol/Ipratropium [DuoNeb 3.0-0.5 MG/3 ML] 3 ml NEB TID 08/15/19 [History] Pantoprazole Sodium [Protonix] 40 mg PO ACBREAKFAST 08/15/19 [History] Bumetanide 2 mg PO DAILY 10/24/19 [History] Isosorbide Mononitrate [Isosorbide Mononitrate ER] 30 mg PO DAILY 10/24/19 [History] Prochlorperazine [Compazine] 10 mg PO Q6H PRN 10/24/19 [History] metOLazone [Metolazone] 2.5 mg PO Q48H 10/24/19 [History] Doxycycline [Vibramycin] 100 mg PO Q12H 7 Days #14 cap 11/01/19 [Rx] Potassium Chloride 10 meq PO DAILY 01/29/20 [History] Sulfamethoxazole/Trimethoprim [Sulfamethoxazole-Tmp Ss Tablet] 1 each PO TID 01/29/20 [History] Aspirin [Aspirin EC] 325 mg PO DAILY 06/06/20 [History] Folic Acid 1 mg PO DAILY 06/06/20 [History] Ondansetron [Zofran Odt] 8 mg PO Q8H PRN 06/06/20 [History] predniSONE [Prednisone] 20 mg PO TID 06/06/20 [History] Past Medical History - Past Health History Medical/Surgical History: Denies Medical/Surgical History HEENT History: Reports: None Cardiovascular History: Reports: CAD, Cardiomyopathy, Heart Failure, Hypertension, [place], Pacemaker Respiratory History: Reports: Pneumonia, Recurrent, SOB Other Respiratory History: pt unsure of respiratory history but has inhaler, pulmonary edma Gastrointestinal History: Reports: GERD, Other (See Below) Other Gastrointestinal History: NAUSEA Genitourinary History: Reports: Diabetic Nephropathy, Urinary Incontinence Musculoskeletal History: Reports: Fracture, RA Other Musculoskeletal History: 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, broken left ankle Neurological History: Reports: Neuropathy, Diabetic Psychiatric History: Reports: None Endocrine/Metabolic History: Reports: Obesity/BMI 30+, Other (See Below) Other Endocrine/Metabolic History: patient denies DM Hematologic History: Reports: Blood Transfusion(s), Iron Deficiency Immunologic History: Reports: None Oncologic (Cancer) History: Reports: None Dermatologic History: Reports: Cellulitis, Scleroderma - Infectious Disease History Infectious Disease History: Reports: MRSA - Past Surgical History Head Surgeries/Procedures: Reports: None HEENT Surgical History: Reports: Other (See Below) Other HEENT Surgeries/Procedures: Surgery for hole in eardrum Cardiovascular Surgical History: Reports: AICD, Other (See Below) Other Cardiovascular Surgeries/Procedures: cardiac cath Respiratory Surgical History: Reports: None GI Surgical History: Reports: EGD Male Surgical History: Reports: None Dermatological Surgical History: Reports: None Social & Family History - Family History Family Medical History: Noncontributory - Caffeine Use Caffeine Use: Reports: Coffee, Soda, Tea - Living Situation & Occupation Living situation: Reports: with Family Occupation: Disabled ED ROS GENERAL - Review of Systems Review Of Systems: Comprehensive ROS is negative, except as noted in HPI. ED EXAM, GENERAL - Physical Exam Exam: See Below Exam Limited By: No Limitations General Appearance: Alert, Moderate Distress Throat/Mouth: Normal Inspection, Normal Voice, No Airway Compromise Head: Atraumatic, Normocephalic Neck: Normal Inspection, Supple, Non-Tender Respiratory/Chest: Respiratory Distress, Crackles, Wheezing, Accessory Muscle Use Cardiovascular: Normal Peripheral Pulses, Regular Rate, Rhythm, No Gallop, No Murmur, No Rub GI/Abdominal: Normal Bowel Sounds, Soft, No Distention, No Mass (Male) Exam: Deferred Rectal (Males) Exam: Deferred Back Exam: Normal Inspection. No: CVA Tenderness (L), CVA Tenderness (R) Extremities: Pedal Edema (+2 pitting edema to RLE; +1 pitting edema to LLE) Neurological: Alert, Oriented Skin Exam: Warm, Dry, Wound/Incision (Old wound to right lateral ankle) EKG INTERPRETATION EKG Date: 06/06/20 Time: 17:49 Rhythm: NSR Rate (Beats/Min): 79 [place]: Normal P-Wave: Present QRS: LBBB ST-T: Normal QT: Normal Comparison: No Change (LBBB; No further interpretation) Course - Vital Signs Last Recorded V/S: Last Vital Signs Temp 96.6 F L 06/06/20 17:38 Pulse 85 06/06/20 17:38 Resp 16 06/06/20 17:38 BP 168/102 H 06/06/20 18:37 Pulse Ox 98 06/06/20 17:46 - Orders/Labs/Meds Orders: Active Orders 24 hr Category Date Time Status EKG 12 Lead [EKG Documentation Completion] [RC] STAT Care 06/06/20 17:41 Active RT Aerosol Therapy [RC] ASDIRECTED Care 06/06/20 17:46 Active CULTURE BLOOD [BC] Stat Lab 06/06/20 17:44 Ordered CULTURE BLOOD [BC] Stat Lab 06/06/20 17:44 Ordered Blood Culture x2 Reflex Set [OM.PC] Stat Oth 06/06/20 17:44 Ordered Labs: Laboratory Tests 06/06/20 06/06/20 06/06/20 Range/Units 17:43 17:43 17:43 WBC 10.1 H (5.0-10.0) 10^3/uL RBC 4.53 L (4.6-6.2) 10^6/uL Hgb 11.5 L (14.0-18.0) g/dL Hct 37.7 L (40.0-54.0) % MCV 83.2 (80-100) fL MCH 25.4 L (27.0-34.0) pg MCHC 30.5 L (33.0-35.0) g/dL Plt Count 282 (150-450) 10^3/uL Neut % (Auto) 65.6 (42.2-75.2) % Lymph % (Auto) 24.7 (20.5-50.1) % [place] % (Auto) 7.3 (2-8) % Eos % (Auto) 2.1 (1.0-3.0) % Baso % (Auto) 0.3 (0.0-1.0) % Sodium 141 (136-145) mmol/L Potassium 4.9 (3.5-5.1) mmol/L Chloride 104 (98-107) mmol/L Carbon Dioxide 29 (21-32) mmol/L Anion Gap 12.9 (7-13) mEq/L BUN 32 H (7-18) mg/dL Creatinine 1.42 H (0.70-1.30) mg/dL Est Cr Clr Drug Dosing 52.18 mL/min Estimated GFR (MDRD) 51 BUN/Creatinine Ratio 22.5 (No establ ref range) Glucose 126 H (74-99) mg/dL Lactic Acid 1.0 (0.4-2.0) mmol/L Calcium 9.0 (8.5-10.1) mg/dL Total Bilirubin 0.3 (0.2-1.0) mg/dL AST 23 (15-37) U/L ALT 31 (16-63) U/L Alkaline Phosphatase 107 (46-116) U/L Troponin I 0.077 H* (0.000-0.056) ng/mL B-Natriuretic Peptide 227 H (0-100) pg/ml Total Protein 6.9 (6.4-8.2) g/dL Albumin 3.2 L (3.4-5.0) g/dL Globulin 3.7 Albumin/Globulin Ratio 0.86 Ethyl Alcohol < 3 (0) mg/dL SARS CoV-2 RNA Rapid VIANCA (NEGATIVE) 06/06/20 Range/Units 18:02 WBC (5.0-10.0) 10^3/uL RBC (4.6-6.2) 10^6/uL Hgb (14.0-18.0) g/dL Hct (40.0-54.0) % MCV (80-100) fL MCH (27.0-34.0) pg MCHC (33.0-35.0) g/dL Plt Count (150-450) 10^3/uL Neut % (Auto) (42.2-75.2) % Lymph % (Auto) (20.5-50.1) % [place] % (Auto) (2-8) % Eos % (Auto) (1.0-3.0) % Baso % (Auto) (0.0-1.0) % Sodium (136-145) mmol/L Potassium (3.5-5.1) mmol/L Chloride (98-107) mmol/L Carbon Dioxide (21-32) mmol/L Anion Gap (7-13) mEq/L BUN (7-18) mg/dL Creatinine (0.70-1.30) mg/dL Est Cr Clr Drug Dosing mL/min Estimated GFR (MDRD) BUN/Creatinine Ratio (No establ ref range) Glucose (74-99) mg/dL Lactic Acid (0.4-2.0) mmol/L Calcium (8.5-10.1) mg/dL Total Bilirubin (0.2-1.0) mg/dL AST (15-37) U/L ALT (16-63) U/L Alkaline Phosphatase (46-116) U/L Troponin I (0.000-0.056) ng/mL B-Natriuretic Peptide (0-100) pg/ml Total Protein (6.4-8.2) g/dL Albumin (3.4-5.0) g/dL Globulin Albumin/Globulin Ratio Ethyl Alcohol (0) mg/dL SARS CoV-2 RNA Rapid VIANCA Negative (NEGATIVE) Meds: Medications Discontinued Medications Generic Name Dose Route Start Last Admin Trade Name Freq PRN Reason Stop Dose Admin Albuterol/Ipratropium 3 ml 06/06/20 17:46 06/06/20 17:53 Duoneb 3.0-0.5 Mg/3 Ml NEB 06/06/20 17:47 3 ml ONETIME ONE Administration Aspirin 324 mg 06/06/20 18:33 06/06/20 18:37 Aspirin PO 06/06/20 18:34 324 mg ONETIME ONE Administration Furosemide 80 mg 06/06/20 17:47 06/06/20 17:52 Lasix IVPUSH 06/06/20 17:48 80 mg NOW ONE Administration Nitroglycerin 0.4 mg 06/06/20 18:32 06/06/20 18:37 Nitrostat SL 06/06/20 18:33 0.4 mg ONETIME ONE Administration - Radiology Interpretation Free Text/Narrative:: [facility] Final Radiology Report Call: [phone] assistance Online chat: [email or web address] Name: LUH FELIX Age: 60Years M Date: 06/06/2020 SSN: -- : 1960 Study: CR CHEST 1V FRONTAL Requesting Physician: Dina Beltran Images: 1 Addl Studies: Provided Clinical History: CP; SOB Contrast: Contrast Medium: Contrast Amount: Contrast Method: Page 1 of 2 PROCEDURE INFORMATION: Exam: XR Chest, 1 View Exam date and time: 06/06/2020 6:51 PM Age: 60 years old Clinical indication: Shortness of breath; Additional info: Cp; SOB TECHNIQUE: Imaging protocol: XR of the chest Views: 1 view. COMPARISON: CR Chest 1V Frontal 10/28/2019 10:35 AM FINDINGS: Tubes, catheters and devices: Cardiac leads are similar in position although not optimally visualized due to body habitus. Lungs: Mild central pulmonary venous congestion. Patchy bilateral lower lobe consolidation may represent atelectasis and/or pneumonia. Pleural space: Unremarkable. No pleural effusion. No pneumothorax. Heart/Mediastinum: Minimal enlargement of the cardiopericardial silhouette. Bones/joints: Degenerative changes right shoulder. Other findings: Body habitus limits the evaluation. IMPRESSION: 1. Patchy bilateral lower lobe atelectasis and/or infiltrate. 2. Minimal enlargement of the cardiopericardial silhouette with mild central pulmonary venous congestion. [facility] FEL[facility] | Final Radiology Report CONFIDENTIALITY STATEMENT This report is intended only for use by the referring physician, and only in accordance with law. If you received this in error, call [phone]. Page 2 of 2 Thank you for allowing us to participate in the care of your patient. Dictated and Authenticated by: Chas Beltran MD 06/06/2020 7:01 PM Central Time ([place] & [place]) - Re-Assessments/Exams Free Text/Narrative Re-Assessment/Exam: 06/06/20 19:21 Patient transferred to [facility] in [place] d/t [facility] [place], [place], and [place] not accepting d/t bed limitations. Departure - Departure Time of Disposition: 19:11 Disposition: DC/Tfer to [facility] 02 Reason for Transfer *Q: Primary PCI Indicated Condition: Undetermined Clinical Impression: CHF exacerbation Qualifiers: Heart failure type: unspecified Qualified Code(s): I50.9 - Heart failure, unspecified Chest pain Qualifiers: Chest pain type: chest pain due to myocardial ischemia Ischemic chest pain type: unspecified angina pectoris type Qualified Code(s): I25.9 - Chronic ischemic heart disease, unspecified COPD (chronic obstructive pulmonary disease) Qualifiers: COPD type: chronic bronchitis Chronic bronchitis type: simple Qualified Code(s): J41.0 - Simple chronic bronchitis Forms: ED Department Discharge, Interfacility Transfer [facility] Sepsis Event Note (ED) - Focused Exam Vital Signs: Vital Signs Temp Pulse Resp BP BP Pulse Ox Pulse Ox 06/06/20 18:37 168/102 H 06/06/20 17:46 98 06/06/20 17:38 96.6 F L 85 16 162/106 H 100 - My Orders Last 24 Hours: My Active Orders 06/06/20 17:41 EKG 12 Lead [EKG Documentation Completion] [RC] STAT 06/06/20 17:44 CULTURE BLOOD [BC] Stat CULTURE BLOOD [BC] Stat Blood Culture x2 Reflex Set [OM.PC] Stat 06/06/20 17:46 RT Aerosol Therapy [RC] ASDIRECTED - Assessment/Plan Last 24 Hours: My Active Orders 06/06/20 17:41 EKG 12 Lead [EKG Documentation Completion] [RC] STAT 06/06/20 17:44 CULTURE BLOOD [BC] Stat CULTURE BLOOD [BC] Stat Blood Culture x2 Reflex Set [OM.PC] Stat 06/06/20 17:46 RT Aerosol Therapy [RC] ASDIRECTED"
[2020-06-06 17:39] VITALS: PULSE 85
[2020-06-06] MEDS ORDERED: Albuterol/Ipratropium 3.0-0.5 MG/3 ML Neb Soln NEB ONE (17:46)
[2020-06-06] MEDS ORDERED: Furosemide 40 MG/4 ML VIAL IVPUSH ONE (17:47)
[2020-06-06 18:19] LABS: ANION GAP 12.9 mEq/L (7-13); CHLORIDE,CL 104 mmol/L (98-107); SODIUM,NA 141 mmol/L (136-145)
[2020-06-06] MEDS ORDERED: Nitroglycerin 0.4 MG Tab.SL SL ONE (18:32)
[2020-06-06] MEDS ORDERED: Aspirin 81 MG Tab.Chew PO ONE (18:33)
[2020-06-06 18:38] VITALS: BP 168/102
--- NOTE | 2020-06-06 19:02 | CR ---
PROCEDURE INFORMATION: Exam: XR Chest, 1 View Exam date and time: 06/06/2020 6:51 PM Age: 60 years old Clinical indication: Shortness of breath; Additional info: Cp; SOB TECHNIQUE: Imaging protocol: XR of the chest Views: 1 view. COMPARISON: CR Chest 1V Frontal 10/28/2019 10:35 AM FINDINGS: Tubes, catheters and devices: Cardiac leads are similar in position although not optimally visualized due to body habitus. Lungs: Mild central pulmonary venous congestion. Patchy bilateral lower lobe consolidation may represent atelectasis and/or pneumonia. Pleural space: Unremarkable. No pleural effusion. No pneumothorax. Heart/Mediastinum: Minimal enlargement of the cardiopericardial silhouette. Bones/joints: Degenerative changes right shoulder. Other findings: Body habitus limits the evaluation. IMPRESSION: 1. Patchy bilateral lower lobe atelectasis and/or infiltrate. 2. Minimal enlargement of the cardiopericardial silhouette with mild central pulmonary venous congestion.
== END 2020-06-06 20:05 ==
LOC: DL.ED 17:21
DX: J41.0 Simple chronic bronchitis (principal); I25.9 Chronic ischemic heart disease, unspecified; I11.0 Hypertensive heart disease with heart failure; I50.9 Heart failure, unspecified; I25.2 Old myocardial infarction; I25.10 Atherosclerotic heart disease of native coronary artery without angina pectoris; K21.9 Gastro-esophageal reflux disease without esophagitis; E11.21 Type 2 diabetes mellitus with diabetic nephropathy; E11.40 Type 2 diabetes mellitus with diabetic neuropathy, unspecified; E66.9 Obesity, unspecified; Z68.37 Body mass index [BMI] 37.0-37.9, adult; Z79.899 Other long term (current) drug therapy; Z20.828 Contact with and (suspected) exposure to other viral communicable diseases
CPT/HCPCS: 36415; 51702; 71045; 80053; 80307; 83605; 83880; 84484; 85025; 87040; 93005; 96374; 99285; A9270; J1940; U0002; J7620-GY

== ENCOUNTER 2020-06-27 23:36 | Emergency (ER) | payer MEDICARE, MEDICAID ==
--- NOTE | 2020-06-27 23:57 | EDM.PDOC ---
ED HPI GENERAL MEDICAL PROBLEM - General Chief Complaint: General Stated Complaint: WEAK, COUGHING, PUKING Time Seen by Provider: 06/27/20 23:55 Source of Information: Reports: Patient History Limitations: Reports: No Limitations - History of Present Illness INITIAL COMMENTS - FREE TEXT/NARRATIVE: c/o bloating abd and SOB past few days got worse tonight and got weak. was here few weeks ago sen to [place] for elevated trop. Abdomen Pain Score (Numeric/FACES): 4 - Related Data Allergies Allergy/AdvReac Type Severity Reaction Status Date / Time No Known Allergies Allergy Verified 06/27/20 23:54 Home Meds: Home Meds Acetaminophen 1,000 mg PO Q8H 01/16/19 [History] Albuterol [Ventolin HFA] 2 puff INH Q6H PRN 01/16/19 [History] Budesonide/Formoterol [Symbicort 160-4.5 MCG] 2 puff INH BID 01/16/19 [History] carvediloL [Coreg] 25 mg PO BIDMEALS 01/16/19 [History] Albuterol/Ipratropium [DuoNeb 3.0-0.5 MG/3 ML] 3 ml NEB TID 08/15/19 [History] Pantoprazole Sodium [Protonix] 40 mg PO ACBREAKFAST 08/15/19 [History] Bumetanide 2 mg PO DAILY 10/24/19 [History] Isosorbide Mononitrate [Isosorbide Mononitrate ER] 30 mg PO DAILY 10/24/19 [History] Prochlorperazine [Compazine] 10 mg PO Q6H PRN 10/24/19 [History] metOLazone [Metolazone] 2.5 mg PO Q48H 10/24/19 [History] Doxycycline [Vibramycin] 100 mg PO Q12H 7 Days #14 cap 11/01/19 [Rx] Potassium Chloride 10 meq PO DAILY 01/29/20 [History] Sulfamethoxazole/Trimethoprim [Sulfamethoxazole-Tmp Ss Tablet] 1 each PO TID 09/18 [History] Aspirin [Aspirin EC] 325 mg PO DAILY 06/06/20 [History] Folic Acid 1 mg PO DAILY 06/06/20 [History] Ondansetron [Zofran Odt] 8 mg PO Q8H PRN 06/06/20 [History] predniSONE [Prednisone] 20 mg PO TID 06/06/20 [History] Past Medical History - Past Health History Medical/Surgical History: Denies Medical/Surgical History HEENT History: Reports: None Cardiovascular History: Reports: CAD, Cardiomyopathy, Heart Failure, Hypertension, MT, Pacemaker Respiratory History: Reports: Pneumonia, Recurrent, SOB Other Respiratory History: pt unsure of respiratory history but has inhaler, pulmonary edma Gastrointestinal History: Reports: GERD, Other (See Below) Other Gastrointestinal History: NAUSEA Genitourinary History: Reports: Diabetic Nephropathy, Urinary Incontinence Musculoskeletal History: Reports: Fracture, RA Other Musculoskeletal History: 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, broken left ankle Neurological History: Reports: Neuropathy, Diabetic Psychiatric History: Reports: None Endocrine/Metabolic History: Reports: Obesity/BMI 30+, Other (See Below) Other Endocrine/Metabolic History: patient denies DM Hematologic History: Reports: Blood Transfusion(s), Iron Deficiency Immunologic History: Reports: None Oncologic (Cancer) History: Reports: None Dermatologic History: Reports: Cellulitis, Scleroderma - Infectious Disease History Infectious Disease History: Reports: MRSA - Past Surgical History Head Surgeries/Procedures: Reports: None HEENT Surgical History: Reports: Other (See Below) Other HEENT Surgeries/Procedures: Surgery for hole in eardrum Cardiovascular Surgical History: Reports: AICD, Other (See Below) Other Cardiovascular Surgeries/Procedures: cardiac cath Respiratory Surgical History: Reports: None GI Surgical History: Reports: EGD Male Surgical History: Reports: None Dermatological Surgical History: Reports: None Social & Family History - Family History Family Medical History: Noncontributory - Tobacco Use Tobacco Use Status *Q: Never Tobacco User Second Hand Smoke Exposure: No - Caffeine Use Caffeine Use: Reports: None - Recreational Drug Use Recreational Drug Use: No - Living Situation & Occupation Living situation: Reports: with Family Occupation: Disabled ED ROS GENERAL - Review of Systems Review Of Systems: Comprehensive ROS is negative, except as noted in HPI. ED EXAM, GENERAL - Physical Exam Exam: See Below Exam Limited By: No Limitations General Appearance: Alert, WD/WN, Mild Distress, Other (discomfort) Ears: Hearing Grossly Normal Throat/Mouth: Normal Voice, No Airway Compromise Head: Atraumatic Neck: Non-Tender, Full Range of Motion Respiratory/Chest: No Accessory Muscle Use, Rhonchi Cardiovascular: Regular Rate, Rhythm GI/Abdominal: Distended, Tender. No: Guarding, Rigid, Rebound (Male) Exam: Deferred Rectal (Males) Exam: Deferred Neurological: Alert, Oriented, Normal Cognition, No Motor/Sensory Deficits Psychiatric: Flat Affect Skin Exam: Warm, Dry, Normal Color Lymphatic: No Adenopathy Course - Vital Signs Last Recorded V/S: Last Vital Signs Temp 35.6 C L 06/28/20 01:07 Pulse 111 H 06/28/20 01:07 Resp 18 06/28/20 01:07 BP 133/108 H 06/28/20 01:07 Pulse Ox 95 06/28/20 01:07 - Orders/Labs/Meds Orders: Active Orders 24 hr Category Date Time Status EKG Documentation Completion [RC] STAT Care 06/27/20 23:41 Active CULTURE BLOOD [BC] Stat Lab 06/27/20 23:55 Received Piperacillin/Tazobactam [Zosyn] 2.25 gm Med 06/28/20 02:04 Active Sodium Chloride 0.9% [Normal Saline] 50 ml IV ONETIME Sodium Chloride 0.9% [Normal Saline] 1,000 ml Med 06/28/20 01:21 Active IV .BOLUS Sodium Chloride 0.9% [Normal Saline] 1,000 ml Med 06/28/20 00:45 Active IV ASDIRECTED Vancomycin 500 mg Med 06/28/20 02:04 Active Sodium Chloride 0.9% [Normal Saline] 100 ml IV ONETIME Medication Orders Sodium Chloride (Normal Saline) 1,000 mls @ 200 mls/hr IV ASDIRECTED [facility] Last Admin: 06/28/20 00:45 Dose: 200 mls/hr Documented by: KARLY Sodium Chloride (Normal Saline) 1,000 mls @ 999 mls/hr IV .BOLUS ONE Stop: 06/28/20 02:21 Last Infusion: 06/28/20 01:33 Dose: 350 mls/hr Documented by: Admin: 06/28/20 01:24 Dose: 999 mls/hr Documented by: KARLY Piperacillin Sod/Tazobactam (Sod 2.25 gm/ Sodium Chloride) 50 mls @ 100 mls/hr IV ONETIME ONE Stop: 06/28/20 02:33 Vancomycin HCl 500 mg/ Sodium (Chloride) 100 mls @ 100 mls/hr IV ONETIME ONE Stop: 06/28/20 03:03 Labs: Laboratory Tests 06/27/20 06/27/20 06/27/20 Range/Units 23:55 23:55 23:55 WBC 40.4 H* (5.0-10.0) 10^3/uL RBC 6.68 H (4.6-6.2) 10^6/uL Hgb 16.3 D (14.0-18.0) g/dL Hct 50.4 (40.0-54.0) % MCV 75.4 L D (80-100) fL MCH 24.4 L (27.0-34.0) pg MCHC 32.3 L (33.0-35.0) g/dL Plt Count 493 H D (150-450) 10^3/uL Neut % (Auto) 88.8 H (42.2-75.2) % Lymph % (Auto) 5.4 L (20.5-50.1) % [place] % (Auto) 5.4 (2-8) % Eos % (Auto) 0.3 L (1.0-3.0) % Baso % (Auto) 0.1 (0.0-1.0) % Add Manual Diff Yes Neutrophils % (Manual) 88 H (42-75) % Band Neutrophils % 6 % Lymphocytes % (Manual) 2 L (20-50) % Atypical Lymphs % 0 % Monocytes % (Manual) 4 (2-8) % Platelet Estimate Increased Sodium 131 L D (136-145) mmol/L Potassium 4.3 (3.5-5.1) mmol/L Chloride 98 (98-107) mmol/L Carbon Dioxide 15 L D (21-32) mmol/L Anion Gap 22.3 H (7-13) mEq/L BUN 50 H (7-18) mg/dL Creatinine 3.30 H D (0.70-1.30) mg/dL Est Cr Clr Drug Dosing 20.94 mL/min Estimated GFR (MDRD) 19 BUN/Creatinine Ratio 15.2 (No establ ref range) Glucose 154 H (74-99) mg/dL Lactic Acid 3.0 H* (0.4-2.0) mmol/L Calcium 7.9 L (8.5-10.1) mg/dL Total Bilirubin 0.4 (0.2-1.0) mg/dL AST 20 (15-37) U/L ALT 13 L (16-63) U/L Alkaline Phosphatase 75 (46-116) U/L Troponin I 0.025 (0.000-0.056) ng/mL B-Natriuretic Peptide 53 (0-100) pg/ml Total Protein 4.5 L (6.4-8.2) g/dL Albumin 1.9 L (3.4-5.0) g/dL Globulin 2.6 Albumin/Globulin Ratio 0.73 SARS CoV-2 RNA Rapid VIANCA (NEGATIVE) 06/28/20 Range/Units 00:12 WBC (5.0-10.0) 10^3/uL RBC (4.6-6.2) 10^6/uL Hgb (14.0-18.0) g/dL Hct (40.0-54.0) % MCV (80-100) fL MCH (27.0-34.0) pg MCHC (33.0-35.0) g/dL Plt Count (150-450) 10^3/uL Neut % (Auto) (42.2-75.2) % Lymph % (Auto) (20.5-50.1) % [place] % (Auto) (2-8) % Eos % (Auto) (1.0-3.0) % Baso % (Auto) (0.0-1.0) % Add Manual Diff Neutrophils % (Manual) (42-75) % Band Neutrophils % % Lymphocytes % (Manual) (20-50) % Atypical Lymphs % % Monocytes % (Manual) (2-8) % Platelet Estimate Sodium (136-145) mmol/L Potassium (3.5-5.1) mmol/L Chloride (98-107) mmol/L Carbon Dioxide (21-32) mmol/L Anion Gap (7-13) mEq/L BUN (7-18) mg/dL Creatinine (0.70-1.30) mg/dL Est Cr Clr Drug Dosing mL/min Estimated GFR (MDRD) BUN/Creatinine Ratio (No establ ref range) Glucose (74-99) mg/dL Lactic Acid (0.4-2.0) mmol/L Calcium (8.5-10.1) mg/dL Total Bilirubin (0.2-1.0) mg/dL AST (15-37) U/L ALT (16-63) U/L Alkaline Phosphatase (46-116) U/L Troponin I (0.000-0.056) ng/mL B-Natriuretic Peptide (0-100) pg/ml Total Protein (6.4-8.2) g/dL Albumin (3.4-5.0) g/dL Globulin Albumin/Globulin Ratio SARS CoV-2 RNA Rapid VIANCA Negative (NEGATIVE) Meds: Medications Generic Name Dose Route Start Last Admin Trade Name Amita PRN Reason Stop Dose Admin Sodium Chloride 1,000 mls @ 200 mls/hr 06/28/20 00:45 06/28/20 00:45 Normal Saline IV 200 mls/hr ASDIRECTED TAMMI Administration Sodium Chloride 1,000 mls @ 999 mls/hr 06/28/20 01:21 06/28/20 01:33 Normal Saline IV 06/28/20 02:21 350 mls/hr .BOLUS ONE Infusion Piperacillin Sod/Tazobactam 50 mls @ 100 mls/hr 06/28/20 02:04 Sod 2.25 gm/ Sodium Chloride IV 06/28/20 02:33 ONETIME ONE Vancomycin HCl 500 mg/ Sodium 100 mls @ 100 mls/hr 06/28/20 02:04 Chloride IV 06/28/20 03:03 ONETIME ONE Discontinued Medications Generic Name Dose Route Start Last Admin Trade Name Amita PRN Reason Stop Dose Admin Furosemide 20 mg 06/27/20 23:59 06/28/20 00:08 Lasix IVPUSH 06/28/20 00:00 20 mg ONETIME ONE Administration Ceftriaxone Sodium 1 gm/ 50 mls @ 100 mls/hr 06/28/20 01:24 06/28/20 01:33 Sodium Chloride IV 06/28/20 01:53 100 mls/hr ONETIME ONE Administration Ondansetron HCl 4 mg 06/27/20 23:59 06/28/20 00:05 Zofran IVPUSH 06/28/20 00:00 4 mg ONETIME ONE Administration - Re-Assessments/Exams Free Text/Narrative Re-Assessment/Exam: 06/28/20 02:08 GF diversion. [facility] Dr Allan kindly accepted pt. Departure - Departure Time of Disposition: 02:08 Disposition: DC/Tfer to [facility] 02 Condition: Fair Clinical Impression: Sepsis associated hypotension ARF (acute renal failure) Qualifiers: Acute renal failure type: unspecified Qualified Code(s): N17.9 - Acute kidney failure, unspecified - Discharge Information Forms: Interfacility Transfer ELI Sepsis Event Note (ED) - Evaluation Sepsis Screening Result: No Definite Risk - Focused Exam Vital Signs: Vital Signs Temp Pulse Resp BP Pulse Ox 06/28/20 01:07 35.6 C L 111 H 18 133/108 H 95 06/27/20 23:57 35.5 C L 116 H 27 H 98/81 06/27/20 23:42 35.4 C L 114 H 27 H 87/58 L 94 L - My Orders Last 24 Hours: My Active Orders 06/27/20 23:41 EKG Documentation Completion [RC] STAT 06/27/20 23:55 CULTURE BLOOD [BC] Stat 06/28/20 00:45 Sodium Chloride 0.9% [Normal Saline] 1,000 ml IV ASDIRECTED 06/28/20 01:21 Sodium Chloride 0.9% [Normal Saline] 1,000 ml IV .BOLUS 06/28/20 02:04 Piperacillin/Tazobactam [Zosyn] 2.25 gm Sodium Chloride 0.9% [Normal Saline] 50 ml IV ONETIME Vancomycin 500 mg Sodium Chloride 0.9% [Normal Saline] 100 ml IV ONETIME - Assessment/Plan Last 24 Hours: My Active Orders 06/27/20 23:41 EKG Documentation Completion [RC] STAT 06/27/20 23:55 CULTURE BLOOD [BC] Stat 06/28/20 00:45 Sodium Chloride 0.9% [Normal Saline] 1,000 ml IV ASDIRECTED 06/28/20 01:21 Sodium Chloride 0.9% [Normal Saline] 1,000 ml IV .BOLUS 06/28/20 02:04 Piperacillin/Tazobactam [Zosyn] 2.25 gm Sodium Chloride 0.9% [Normal Saline] 50 ml IV ONETIME Vancomycin 500 mg Sodium Chloride 0.9% [Normal Saline] 100 ml IV ONETIME
--- NOTE | 2020-06-27 23:58 | CR ---
PROCEDURE INFORMATION: Exam: XR Chest, 1 View Exam date and time: 06/27/2020 11:46 PM Age: 60 years old Clinical indication: Shortness of breath and other: Chest pain TECHNIQUE: Imaging protocol: XR of the chest Views: 1 view. COMPARISON: CR Chest 1V Frontal 06/06/2020 6:51 PM FINDINGS: Tubes, catheters and devices: A pacemaker device is present, and its leads are in appropriate position. Abandoned pacemaker wires suggested in the left axilla. Lungs: There is haziness and consolidation in the left lung base. There is haziness over the right lung base. Remainder of the lungs are clear. Pleural space: There is blunting of the left costophrenic angle. There is mild blunting of the right costophrenic angle. Heart/Mediastinum: There is severe cardiomegaly. Bones/joints: No acute abnormality or aggressive osseous lesion. IMPRESSION: Findings favor a moderate left pleural effusion, small right pleural effusion, and possible acute airspace disease in the left lung base which could be related to infectious process or pulmonary edema in the appropriate clinical setting. Note that a component of silhouetting from superimposition of structures is also likely.
[2020-06-27] MEDS ORDERED: Ondansetron 4 MG/2 ML SDV IVPUSH ONE (23:59)
[2020-06-27] MEDS ORDERED: Furosemide 20 MG/2 ML VIAL IVPUSH ONE (23:59)
[2020-06-28 00:35] LABS: ANION GAP 22.3 mEq/L (7-13)
[2020-06-28] MEDS ORDERED: Sodium Chloride 0.9% 1,000 ML IV SCH (00:45)
[2020-06-28 01:07] VITALS: BP 133/108; PULSE 111
[2020-06-28] MEDS ORDERED: Sodium Chloride 0.9% 1,000 ML IV ONE (01:21)
[2020-06-28] MEDS ORDERED: cefTRIAXone 1 GM in Sodium Chloride 0.9% 50 ML IV ONE (01:24)
--- NOTE | 2020-06-28 01:36 | CT ---
PROCEDURE INFORMATION: Exam: CT Chest Without Contrast Exam date and time: 06/28/2020 12:50 AM Age: 60 years old Clinical indication: Bloating; Shortness of breath; Patient HX: Wbc: 40.4, elevated creat, neg rapid covid test; Additional info: SOB bloated abd TECHNIQUE: Imaging protocol: Computed tomography of the chest without contrast. Radiation optimization: All CT scans at this facility use at least one of these dose optimization techniques: automated exposure control; mA and/or kV adjustment per patient size (includes targeted exams where dose is matched to clinical indication); or iterative reconstruction. COMPARISON: CT Abdomen Pelvis w Cont 11/22/2013 11:31 AM FINDINGS: Tubes, catheters and devices: Pacemaker is placed via the left subclavian vein. Lungs: See "Pleural space" finding. Pleural space: There is volume loss seen within the left hemithorax with pleural thickening seen within the posterolateral aspect of the left hemithorax. There are strandy and hazy opacity seen in the lung bases bilaterally, left more prominent than right likely representing chronic scarring and atelectasis. Heart: Unremarkable. No cardiomegaly. No pericardial effusion. Aorta: Unremarkable. No aortic aneurysm. Lymph nodes: Unremarkable. No enlarged lymph nodes. Bones/joints: There is severe compression the T5 vertebral body. Soft tissues: Unremarkable. IMPRESSION: 1. Volume loss within the left hemithorax with pleural thickening present. 2. Strandy and hazy opacities in the lung bases, left more prominent than right likely represents chronic scarring and atelectasis 3. Severe compression of the T5 vertebral body PROCEDURE INFORMATION: Exam: CT Abdomen And Pelvis Without Contrast Exam date and time: 06/28/2020 12:50 AM Age: 60 years old Clinical indication: Bloating; Shortness of breath; Patient HX: Wbc: 40.4, elevated creat, neg rapid covid test; Additional info: SOB bloated abd TECHNIQUE: Imaging protocol: Computed tomography of the abdomen and pelvis without contrast. Radiation optimization: All CT scans at this facility use at least one of these dose optimization techniques: automated exposure control; mA and/or kV adjustment per patient size (includes targeted exams where dose is matched to clinical indication); or iterative reconstruction. COMPARISON: CT Abdomen Pelvis w Cont 11/22/2013 11:31 AM FINDINGS: Liver: There is a nodular profile of the liver compatible with cirrhosis. Gallbladder and bile ducts: Normal. No calcified stones. No ductal dilation. Pancreas: Normal. No ductal dilation. Spleen: Normal. No splenomegaly. Adrenal glands: Normal. No mass. Kidneys and ureters: Normal. No hydronephrosis. Stomach and bowel: Unremarkable. No obstruction. No mucosal thickening. Appendix: No evidence of appendicitis. Intraperitoneal space: There is a small to moderate amount ascites seen. Vasculature: Unremarkable. No abdominal aortic aneurysm. Lymph nodes: Unremarkable. No enlarged lymph nodes. Urinary bladder: Mancuso catheter is present. Bladder appears decompressed. There is a small amount of air present intraluminally within the bladder likely secondary to instrumentation. Reproductive: Unremarkable as visualized. Bones/joints: There is stable anterior spondylolisthesis of L5 on S1 measuring 12 mm with bone on bone contact and osseous fusion of L5 on S1 secondary to partial unroofing at L5-S1. There are deformities of the superior endplates of T12 through L2 vertebral bodies compatible with compression fractures. There has been progression in the left hip deformities with erosion the left femoral head and widening of the left acetabulum compatible with an inflammatory arthritidi. Moderate fluid is present within the left hip joint capsule. There has been further progression in the degenerative changes within the right hip as well. Soft tissues: Unremarkable. IMPRESSION: 1. Nodular profile of the liver compatible with cirrhosis. 2. Small moderate amount of ascites 3. Compression of the superior endplates of T12 through L2 vertebral bodies 4. Progression in the bilateral hip degenerative changes as described above.
[2020-06-28] MEDS ORDERED: Piperacillin/Tazobactam 2.25 GM in Sodium Chloride 0.9% 50 ML IV ONE (02:04)
== END 2020-06-28 02:41 ==
LOC: DL.ED 23:36
DX: A41.9 Sepsis, unspecified organism (principal); R65.20 Severe sepsis without septic shock; N17.9 Acute kidney failure, unspecified; I95.9 Hypotension, unspecified; I25.10 Atherosclerotic heart disease of native coronary artery without angina pectoris; I11.0 Hypertensive heart disease with heart failure; I50.9 Heart failure, unspecified; I25.2 Old myocardial infarction; K21.9 Gastro-esophageal reflux disease without esophagitis; E11.21 Type 2 diabetes mellitus with diabetic nephropathy; E11.40 Type 2 diabetes mellitus with diabetic neuropathy, unspecified; M06.9 Rheumatoid arthritis, unspecified; E66.9 Obesity, unspecified; Z20.828 Contact with and (suspected) exposure to other viral communicable diseases; Z79.899 Other long term (current) drug therapy; Z79.82 Long term (current) use of aspirin
CPT/HCPCS: 36415; 51702; 71045; 71250; 74176; 80053; 83605; 83880; 84484; 85025; 87040; 93005; 96365; 96375; 99285-25; J0696; J1940; J2405; J2543; J3370; J7030; J7050; U0002

== ENCOUNTER 2020-08-19 09:29 | Emergency (ER) | payer MEDICARE, MEDICAID ==
--- NOTE | 2020-08-19 09:17 | EDM.PDOC ---
ED HPI GENERAL MEDICAL PROBLEM - General Stated Complaint: UNKNOWN Time Seen by Provider: 08/19/20 08:58 Source of Information: Reports: EMS History Limitations: Reports: Altered Mental Status - History of Present Illness INITIAL COMMENTS - FREE TEXT/NARRATIVE: This 60 yo male patient was brought to the ED by [facility] due to a low blood sugar level. EMS reports the patient was located in a bed that was full of fecal matter and urine. EMS reports the patient's family reports the patient has been lying in the bed since Wednesday and has not moved. The patient has been unable to answer questions. The patient's initial blood sugar level was 48. The patient was given Glucagon and IV D10 by EMS prior to arrival in the ED. The patient arrived in the ED in distress. The patient was not able to follow any commands. The patient has excoriations across his buttocks, lower back, upper legs and abdomen. Onset: Unknown/Unsure Duration: Constant Location: Reports: Generalized Quality: Reports: Other Severity: Severe Improves with: Reports: None Worsens with: Reports: None Context: Reports: Other Associated Symptoms: Reports: No Other Symptoms - Related Data Allergies Allergy/AdvReac Type Severity Reaction Status Date / Time No Known Allergies Allergy Verified 06/27/20 23:54 Home Meds: Home Meds Acetaminophen [Tylenol] 650 mg PO Q4H PRN 08/19/20 [History] Albuterol [Ventolin HFA] 2 puff INH BID 08/19/20 [History] Aspirin 81 mg PO DAILY 08/19/20 [History] Calcitonin ([place]) [Miacalcin Nasal [place]] 1 spray NS DAILY 08/19/20 [History] Calcium Carbonate [Tums] 500 mg PO ASDIRECTED 08/19/20 [History] Folic Acid 1 mg PO 08/19/20 [History] Ondansetron [Zofran] 4 mg CHEW ASDIRECTED 08/19/20 [History] Pantoprazole [ProTONIX] 40 mg PO DAILY 08/19/20 [History] Sodium Bicarbonate 650 mg PO TID PRN 08/19/20 [History] metOLazone [Metolazone] 2.5 mg PO DAILY 08/19/20 [History] Past Medical History - Past Health History Medical/Surgical History: Denies Medical/Surgical History HEENT History: Reports: None Cardiovascular History: Reports: CAD, Cardiomyopathy, Heart Failure, Hypertension, CO, Pacemaker Respiratory History: Reports: Pneumonia, Recurrent, SOB Other Respiratory History: pt unsure of respiratory history but has inhaler, pulmonary edma Gastrointestinal History: Reports: GERD, Other (See Below) Other Gastrointestinal History: NAUSEA Genitourinary History: Reports: Diabetic Nephropathy, Urinary Incontinence Musculoskeletal History: Reports: Fracture, RA Other Musculoskeletal History: 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, broken left ankle Neurological History: Reports: Neuropathy, Diabetic Psychiatric History: Reports: None Endocrine/Metabolic History: Reports: Obesity/BMI 30+, Other (See Below) Other Endocrine/Metabolic History: patient denies DM Hematologic History: Reports: Blood Transfusion(s), Iron Deficiency Immunologic History: Reports: None Oncologic (Cancer) History: Reports: None Dermatologic History: Reports: Cellulitis, Scleroderma - Infectious Disease History Infectious Disease History: Reports: MRSA - Past Surgical History Head Surgeries/Procedures: Reports: None HEENT Surgical History: Reports: Other (See Below) Other HEENT Surgeries/Procedures: Surgery for hole in eardrum Cardiovascular Surgical History: Reports: AICD, Other (See Below) Other Cardiovascular Surgeries/Procedures: cardiac cath Respiratory Surgical History: Reports: None GI Surgical History: Reports: EGD Male Surgical History: Reports: None Dermatological Surgical History: Reports: None Social & Family History - Family History Family Medical History: No Pertinent Family History - Caffeine Use Caffeine Use: Reports: None - Living Situation & Occupation Living situation: Reports: with Family Occupation: Disabled ED ROS GENERAL - Review of Systems Review Of Systems: Comprehensive ROS is negative, except as noted in HPI. ED EXAM, GENERAL - Physical Exam Exam: See Below Exam Limited By: Altered Mental Status General Appearance: Alert, Severe Distress, Obese (Morbid obesity) Eye Exam: Bilateral Eye: EOMI, PERRL Ears: Normal External Exam, Normal Canal, Hearing Grossly Normal, Normal TMs Nose: Normal Inspection, No Blood Throat/Mouth: Normal Inspection, Normal Lips Head: Atraumatic, Normocephalic Neck: Full Range of Motion Respiratory/Chest: Decreased Breath Sounds Cardiovascular: Normal Peripheral Pulses, Regular Rate, Rhythm, No Edema, No Gallop, No JVD, No Murmur, No Rub GI/Abdominal: Normal Bowel Sounds, Tender (diffuse tenderness), Other (excoriations throughout (cellullitis) ) Back Exam: Other (excoriations to lower back with fecal material to the lower back) Extremities: Other (excoriations to legs with multiple areas of cellulitis) Neurological: Alert, Disoriented Psychiatric: Anxious Skin Exam: Increased Warmth, Wound/Incision (multiple areas of excorations, with bleeding) Lymphatic: No Adenopathy Course - Vital Signs Last Recorded V/S: Last Vital Signs Temp 36.2 C 08/19/20 09:19 Pulse 116 H 08/19/20 09:19 Resp 18 08/19/20 09:19 BP 112/84 08/19/20 09:19 Pulse Ox 98 08/19/20 09:19 - Orders/Labs/Meds Orders: Active Orders 24 hr Category Date Time Status Blood Glucose Check, Bedside [RC] ONETIME Care 08/19/20 10:32 Active EKG Documentation Completion [RC] STAT Care 08/19/20 08:47 Active Initiate/Renew Non-Violent Restraints (All Ages) Q24H Care 08/19/20 09:00 Ordered Insert Mancuso Catheter [Insert Urinary Catheter] [OM.PC] Care 08/19/20 10:30 Ordered Q24H Nrsg Assess Restraint Init/Mon [RC] Q1H Care 08/19/20 09:42 Active Urinary Catheter Assessment [RC] ASDIRECTED Care 08/19/20 10:25 Active CULTURE BLOOD [BC] Stat Lab 08/19/20 09:02 Received CULTURE BLOOD [BC] Stat Lab 08/19/20 10:11 Received DRUG SCREEN URINE BIORAD [URCHEM] Stat Lab 08/19/20 09:01 Ordered REFLEX LACTIC ACID YES OR NO [CHEM] Routine Lab 08/19/20 09:33 Received UA RFX GEORGI AND CULT IF INDIC [URIN] Urgent Lab 08/19/20 09:01 Ordered Albumin 25% [Flexbumin 25%] 100 gm Med 08/19/20 12:15 Active Premix Bag 1 bag IV ONETIME Piperacillin/Tazobactam [Zosyn] 3.375 gm Med 08/19/20 11:56 Ordered Sodium Chloride 0.9% [Normal Saline] 100 ml IV ONETIME Sodium Chloride 0.9% [Normal Saline] 1,000 ml Med 08/19/20 10:45 Active IV ASDIRECTED Isolation [COMM] Routine Oth 08/19/20 09:02 Active Medication Orders Sodium Chloride (Normal Saline) 1,000 mls @ 250 mls/hr IV ASDIRECTED TAMMI Last Admin: 08/19/20 10:42 Dose: 250 mls/hr Documented by: SHANTELLE Piperacillin Sod/Tazobactam (Sod 3.375 gm/ Sodium Chloride) 100 mls @ 200 mls/hr IV ONETIME ONE Stop: 08/19/20 12:25 Last Admin: 08/19/20 12:07 Dose: 200 mls/hr Documented by: SHANTELLE Albumin Human 100 gm/ Premix 400 mls @ 800 mls/hr IV ONETIME ONE Stop: 08/19/20 12:44 Labs: Laboratory Tests 08/19/20 08/19/20 08/19/20 Range/Units 09:02 09:02 09:02 WBC 12.1 H (5.0-10.0) 10^3/uL RBC 2.87 L (4.6-6.2) 10^6/uL Hgb 7.8 L D (14.0-18.0) g/dL Hct 24.3 L (40.0-54.0) % MCV 84.7 D (80-100) fL MCH 27.2 (27.0-34.0) pg MCHC 32.1 L (33.0-35.0) g/dL Plt Count 296 D (150-450) 10^3/uL Neut % (Auto) 74.4 (42.2-75.2) % Lymph % (Auto) 13.6 L (20.5-50.1) % [place] % (Auto) 9.3 H (2-8) % Eos % (Auto) 2.0 (1.0-3.0) % Baso % (Auto) 0.7 (0.0-1.0) % Add Manual Diff Yes Neutrophils % (Manual) 82 H (42-75) % Band Neutrophils % 2 % Lymphocytes % (Manual) 9 L (20-50) % Monocytes % (Manual) 6 (2-8) % Eosinophils % (Manual) 1 (1-3) % WBC Morphology Comment See note Platelet Estimate Adequate Polychromasia 1+ slight Hypochromasia 1+ slight Poikilocytosis 2+ moderate Anisocytosis 2+ moderate Target Cells 1+ slight Sodium 146 H D (136-145) mmol/L Potassium 4.3 (3.5-5.1) mmol/L Chloride 108 H (98-107) mmol/L Carbon Dioxide 25 (21-32) mmol/L Anion Gap 17.3 H (7-13) mEq/L BUN 15 D (7-18) mg/dL Creatinine 3.28 H (0.70-1.30) mg/dL Est Cr Clr Drug Dosing TNP Estimated GFR (MDRD) 19 BUN/Creatinine Ratio 4.6 (No establ ref range) Glucose 85 (74-99) mg/dL Lactic Acid 7.4 H* (0.4-2.0) mmol/L Calcium 7.3 L (8.5-10.1) mg/dL Total Bilirubin 3.1 H (0.2-1.0) mg/dL AST 99 H (15-37) U/L ALT 43 (16-63) U/L Alkaline Phosphatase 191 H (46-116) U/L Ammonia (11-32) umol/L Troponin I 0.139 H* (0.000-0.056) ng/mL B-Natriuretic Peptide 72 (0-100) pg/ml Total Protein 4.7 L (6.4-8.2) g/dL Albumin 1.6 L (3.4-5.0) g/dL Globulin 3.1 Albumin/Globulin Ratio 0.52 Ethyl Alcohol (0) mg/dL SARS-CoV-2 RNA (VIANCA) (NEGATIVE) 08/19/20 08/19/20 08/19/20 Range/Units 09:02 09:10 10:11 WBC (5.0-10.0) 10^3/uL RBC (4.6-6.2) 10^6/uL Hgb (14.0-18.0) g/dL Hct (40.0-54.0) % MCV (80-100) fL MCH (27.0-34.0) pg MCHC (33.0-35.0) g/dL Plt Count (150-450) 10^3/uL Neut % (Auto) (42.2-75.2) % Lymph % (Auto) (20.5-50.1) % [place] % (Auto) (2-8) % Eos % (Auto) (1.0-3.0) % Baso % (Auto) (0.0-1.0) % Add Manual Diff Neutrophils % (Manual) (42-75) % Band Neutrophils % % Lymphocytes % (Manual) (20-50) % Monocytes % (Manual) (2-8) % Eosinophils % (Manual) (1-3) % WBC Morphology Comment Platelet Estimate Polychromasia Hypochromasia Poikilocytosis Anisocytosis Target Cells Sodium (136-145) mmol/L Potassium (3.5-5.1) mmol/L Chloride (98-107) mmol/L Carbon Dioxide (21-32) mmol/L Anion Gap (7-13) mEq/L BUN (7-18) mg/dL Creatinine (0.70-1.30) mg/dL Est Cr Clr Drug Dosing Estimated GFR (MDRD) BUN/Creatinine Ratio (No establ ref range) Glucose (74-99) mg/dL Lactic Acid (0.4-2.0) mmol/L Calcium (8.5-10.1) mg/dL Total Bilirubin (0.2-1.0) mg/dL AST (15-37) U/L ALT (16-63) U/L Alkaline Phosphatase (46-116) U/L Ammonia 64 H (11-32) umol/L Troponin I (0.000-0.056) ng/mL B-Natriuretic Peptide (0-100) pg/ml Total Protein (6.4-8.2) g/dL Albumin (3.4-5.0) g/dL Globulin Albumin/Globulin Ratio Ethyl Alcohol < 3 (0) mg/dL SARS-CoV-2 RNA (VIANCA) Negative (NEGATIVE) Meds: Medications Generic Name Dose Route Start Last Admin Trade Name Mustaphaq PRN Reason Stop Dose Admin Sodium Chloride 1,000 mls @ 250 mls/hr 08/19/20 10:45 08/19/20 10:42 Normal Saline IV 250 mls/hr ASDIRECTED TAMMI Administration Piperacillin Sod/Tazobactam 100 mls @ 200 mls/hr 08/19/20 11:56 08/19/20 12:07 Sod 3.375 gm/ Sodium Chloride IV 08/19/20 12:25 200 mls/hr ONETIME ONE Administration Albumin Human 100 gm/ Premix 400 mls @ 800 mls/hr 08/19/20 12:15 IV 08/19/20 12:44 ONETIME ONE Departure - Departure Time of Disposition: 12:13 Disposition: DC/Tfer to Acute Hospital 02 Condition: Poor Clinical Impression: Sepsis Qualifiers: Sepsis type: sepsis due to unspecified organism Sepsis acute organ dysfunction status: with acute organ dysfunction Severe sepsis acute organ dysfunction type: acute renal failure Acute renal failure type: unspecified Severe sepsis shock status: without septic shock Qualified Code(s): A41.9 - Sepsis, unspecified organism; R65.20 - Severe sepsis without septic shock; N17.9 - Acute kidney failure, unspecified Acute renal failure Qualifiers: Acute renal failure type: unspecified Qualified Code(s): N17.9 - Acute kidney failure, unspecified - Discharge Information Forms: Interfacility Transfer EMTALA Care Plan Goals: Discussed the patient's history, examination, lab and EKG results with Dr. Bravo. Dr Bravo accepted the patient for continued evaluation and management as an inpatient at [facility] in [place]. The patient will be transported by [facility]. Sepsis Event Note (ED) - Focused Exam Vital Signs: Vital Signs Temp Pulse Resp BP Pulse Ox 08/19/20 09:19 36.2 C 116 H 18 112/84 98 - My Orders Last 24 Hours: My Active Orders 08/19/20 08:47 EKG Documentation Completion [RC] STAT 08/19/20 09:00 Initiate/Renew Non-Violent Restraints (All Ages) Q24H 08/19/20 09:01 DRUG SCREEN URINE BIORAD [URCHEM] Stat UA RFX GEORGI AND CULT IF INDIC [URIN] Urgent 08/19/20 09:02 CULTURE BLOOD [BC] Stat Isolation [COMM] Routine 08/19/20 09:33 REFLEX LACTIC ACID YES OR NO [CHEM] Routine 08/19/20 09:42 Nrsg Assess Restraint Init/Mon [RC] Q1H 08/19/20 10:11 CULTURE BLOOD [BC] Stat 08/19/20 10:25 Urinary Catheter Assessment [RC] ASDIRECTED 08/19/20 10:30 Insert Mancuso Catheter [Insert Urinary Catheter] [OM.PC] Q24H 08/19/20 10:32 Blood Glucose Check, Bedside [RC] ONETIME 08/19/20 10:45 Sodium Chloride 0.9% [Normal Saline] 1,000 ml IV ASDIRECTED 08/19/20 11:56 Piperacillin/Tazobactam [Zosyn] 3.375 gm Sodium Chloride 0.9% [Normal Saline] 100 ml IV ONETIME 08/19/20 12:15 Albumin 25% [Flexbumin 25%] 100 gm Premix Bag 1 bag IV ONETIME - Assessment/Plan Last 24 Hours: My Active Orders 08/19/20 08:47 EKG Documentation Completion [RC] STAT 08/19/20 09:00 Initiate/Renew Non-Violent Restraints (All Ages) Q24H 08/19/20 09:01 DRUG SCREEN URINE BIORAD [URCHEM] Stat UA RFX GEORGI AND CULT IF INDIC [URIN] Urgent 08/19/20 09:02 CULTURE BLOOD [BC] Stat Isolation [COMM] Routine 08/19/20 09:33 REFLEX LACTIC ACID YES OR NO [CHEM] Routine 08/19/20 09:42 Nrsg Assess Restraint Init/Mon [RC] Q1H 08/19/20 10:11 CULTURE BLOOD [BC] Stat 08/19/20 10:25 Urinary Catheter Assessment [RC] ASDIRECTED 08/19/20 10:30 Insert Mancuso Catheter [Insert Urinary Catheter] [OM.PC] Q24H 08/19/20 10:32 Blood Glucose Check, Bedside [RC] ONETIME 08/19/20 10:45 Sodium Chloride 0.9% [Normal Saline] 1,000 ml IV ASDIRECTED 08/19/20 11:56 Piperacillin/Tazobactam [Zosyn] 3.375 gm Sodium Chloride 0.9% [Normal Saline] 100 ml IV ONETIME 08/19/20 12:15 Albumin 25% [Flexbumin 25%] 100 gm Premix Bag 1 bag IV ONETIME
[2020-08-19 09:25] VITALS: BP 112/84; PULSE 116
[2020-08-19 09:31] LABS: ANION GAP 17.3 mEq/L (7-13); CHLORIDE,CL 108 mmol/L (98-107); SODIUM,NA 146 mmol/L (136-145)
[2020-08-19] MEDS ORDERED: Sodium Chloride 0.9% 1,000 ML IV SCH (10:45)
[2020-08-19] MEDS ORDERED: Piperacillin/Tazobactam 3.375 GM in Sodium Chloride 0.9% 100 ML IV ONE (11:56)
[2020-08-19] MEDS ORDERED: ALBUMIN IV ONE (12:15)
[2020-08-19] MEDS ORDERED: Hydrocortisone 1% Oint 28 GM Tube TOP PRN (12:16)
[2020-08-19] MEDS ORDERED: Ondansetron 4 MG/2 ML SDV IVPUSH ONE (12:41)
== END 2020-08-19 13:15 ==
LOC: DL.ED 09:29
DX: A41.9 Sepsis, unspecified organism (principal); R65.20 Severe sepsis without septic shock; N17.9 Acute kidney failure, unspecified; I11.0 Hypertensive heart disease with heart failure; I50.9 Heart failure, unspecified; I25.10 Atherosclerotic heart disease of native coronary artery without angina pectoris; K21.9 Gastro-esophageal reflux disease without esophagitis; E11.21 Type 2 diabetes mellitus with diabetic nephropathy; M06.9 Rheumatoid arthritis, unspecified; E11.40 Type 2 diabetes mellitus with diabetic neuropathy, unspecified; E66.9 Obesity, unspecified; Z68.33 Body mass index [BMI] 33.0-33.9, adult; Z20.828 Contact with and (suspected) exposure to other viral communicable diseases; Z79.82 Long term (current) use of aspirin; Z79.899 Other long term (current) drug therapy
CPT/HCPCS: 36415; 51702; 80053; 80307; 82140; 82962; 83605; 83880; 84484; 85025; 87040; 87804; 93005; 96365; 96375; 99285; J2405; J2543; J7030; J7050; P9047; U0002